=== PATIENT | female | born 1935 | race Caucasian/White ===

== ENCOUNTER → 2016-07-28 | Outpatient (CLI) | payer MEDICARE, BC ==
--- NOTE | 2016-07-28 08:40 | US ---
EXAMINATION TYPE: US kidneys/renal and bladder DATE OF EXAM: 07/28/2016 7:50 AM COMPARISON: ABD limited in PACS 08/09/2012 CLINICAL HISTORY: US. Abnormal renal function EXAM MEASUREMENTS: Right Kidney: 10.4 x 5.0 x 5.1 cm Left Kidney: 11.0 x 4.8 x 4.5 cm ANATOMY: TECHNOLOGIST IMPRESSION: Right Kidney: Cortical thinning, no evidence of hydro Left Kidney: Cortical thinning, no evidence of hydro Bladder: wnl Bilateral Jets seen: No There is no evidence for hydronephrosis at this point in time. No nephrolithiasis is seen. No reyna s are identified. The urinary bladder is anechoic. IMPRESSION: Renal parenchymal thinning otherwise unremarkable study. Normal Values: Renal Length = 9 - 12cm Bladder Wall: < 0.3cm
== END | disposition home or self-care (01) ==
LOC: RADUSWWP 07:35
PROVIDERS: ATTEND Internal Medicine
DX: N28.89 Other specified disorders of kidney and ureter (principal); R94.4 Abnormal results of kidney function studies
CPT/HCPCS: 36415; 76770; 80053; 81003; 84100; 85027

== ENCOUNTER → 2016-07-28 | Outpatient (CLI) | payer MEDICARE, BC ==
[2016-07-28 08:46] LABS: CH 32.5; CHCM 32.5; HCT 41.2 % (34.0-46.0); MCH 31.6 pg (25.0-35.0); MCHC 31.5 g/dL (31.0-37.0); MCV 100.6 fL (80.0-100.0); Macrocytosis Slight; Mean Platelet Volume 7.6; RDW 13.7 % (11.5-15.5); WBC 6.8 k/uL (3.8-10.6)
[2016-07-28 09:03] LABS: ALT 40 U/L (9-52); AST 33 U/L (14-36); Alkaline Phosphatase 66 U/L (38-126); Anion Gap 8 mmol/L; Blood Urea Nitrogen 22 mg/dL (7-17); Calcium 9.6 mg/dL (8.4-10.2); Carbon Dioxide 31 mmol/L (22-30); Chloride 101 mmol/L (98-107); Glucose 93 mg/dL (74-99); Non-African American GFR(MDRD) >60 (>60 ml/min/1.73 sqM); Potassium 4.1 mmol/L (3.5-5.1); Sodium 140 mmol/L (137-145); Total Bilirubin 0.4 mg/dL (0.2-1.3); Total Protein 6.7 g/dL (6.3-8.2)
[2016-07-28 10:04] LABS: Appearance,Urine Clear (Clear); Bilirubin,Urine Negative (Negative); Glucose,Urine (UA) Negative (Negative); Ketones,Urine Negative (Negative); Leukocyte Esterase,Urine Negative (Negative); Nitrite,Urine Negative (Negative); PH, Urine 5.5 (5.0-8.0); Protein,Urine Negative (Negative); Specific Gravity,Urine 1.006 (1.001-1.035); UA Billing (MACRO vs. MICRO) CHEM; Urobilinogen,Urine <2.0 mg/dL (<2.0)
== END | disposition home or self-care (01) ==
LOC: LABWHC1 07:55
PROVIDERS: ATTEND Internal Medicine
DX: R94.4 Abnormal results of kidney function studies (principal)
CPT/HCPCS: 36415; 80053; 81003; 84100; 85027

== ENCOUNTER → 2017-01-29 | Outpatient (CLI) | payer MEDICARE, BC ==
--- NOTE | 2017-02-02 07:15 | MM ---
Reason for exam: screening (asymptomatic). Last mammogram was performed 1 year and 2 months ago. History: Patient is postmenopausal and history of other cancer. Excisional biopsy of the right breast, 2004. Cyst aspiration of the left breast, 1999. Silicone gel implants in both breasts, 1971. Physical Findings: A clinical breast exam by your physician is recommended on an annual basis and results should be correlated with mammographic findings. MG 3D Screen Mammo Imp/Cad Bilateral CC, MLO, and ID view(s) were taken. Prior study comparison: November 19, 2015, bilateral MG 3d screen mammo imp/cad. July 14, 2014, bilateral MG screening mammo w CAD. June 21, 2013, CAD bilateral diagnostic mammogram. June 03, 2012, CAD bilateral diagnostic mammogram. The breast tissue is heterogeneously dense. This may lower the sensitivity of mammography. No significant changes when compared with prior studies. ASSESSMENT: Negative, BI-RAD 1 RECOMMENDATION: Routine screening mammogram of both breasts in 1 year. Manage on a clinical basis with regard to left breast pain. A negative exam should not preclude additional follow up of suspicious palpable abnormalities.
== END | disposition home or self-care (01) ==
LOC: RADMAMWWP 15:38
PROVIDERS: ATTEND Internal Medicine
DX: Z12.31 Encounter for screening mammogram for malignant neoplasm of breast (principal)
CPT/HCPCS: 77063; G0202

== ENCOUNTER 2018-10-02 15:38 | Emergency (ER) | payer MEDICARE, BC ==
--- NOTE | 2018-10-02 16:36 | ED ---
Chest Pain HPI - General Chief Complaint: Chest Pain Stated Complaint: Chest and arm pain Time Seen by Provider: 10/02/18 16:00 Source: patient Mode of arrival: ambulatory Limitations: no limitations - History of Present Illness Initial Comments: Patient is an 83-year-old female presenting for chest pain. The patient states that it started last night around 9 PM while she was sitting at a table. She states that it was a constant sharp sensation and occurred after she had just finished eating. She states that there was some arm pain but denies any radiation down the arm. She states it went away around 2 AM and that the pain was also worse with movement. She did not have any pain this morning and states that it came back this afternoon. She denies any nausea/vomiting/diarrhea and states that there is point tenderness on the left side of her chest. She also states that she lifted a couple heavy bags over her head yesterday before the symptoms started and thinks that it may be secondary to that. She also states that she was seen here within the last few years where they did a stress test and everything was noted to be negative. - Related Data Home Medications Medication Instructions Recorded Confirmed Albuterol Sulfate [Proair Hfa] 1 - 2 puff INHALATION RT-Q6H PRN 06/13/16 10/02/18 Allopurinol [Zyloprim] 150 mg PO DAILY 06/13/16 10/02/18 Budesonide/Formoterol Fumarate 2 puff INHALATION RT-BID 06/13/16 10/02/18 [Symbicort 160-4.5 Mcg Inhaler] Fluticasone Nasal [place] [Flonase 1 spr EA NOSTRIL BID 06/13/16 10/02/18 Nasal [place]] Levothyroxine Sodium [Synthroid] 125 mcg PO DAILY 06/13/16 10/02/18 Montelukast [Singulair] 10 mg PO HS 06/13/16 10/02/18 Omeprazole [PriLOSEC] 20 mg PO AC-BRKFST 06/13/16 10/02/18 Potassium Chloride [Klor-Con 10] 10 meq PO HS 06/13/16 10/02/18 Sotalol [Betapace] 80 mg PO TID 06/13/16 10/02/18 Triamterene-Hctz 37.5-25Mg 1 cap PO DAILY 06/13/16 10/02/18 [Dyazide 37.5-25 Capsule] Vit C/E/Zn/Coppr/Lutein/Zeaxan 1 cap PO BID 06/13/16 10/02/18 [Preservision Areds 2 Softgel] Loratadine [Claritin] 10 mg PO DAILY 10/02/18 10/02/18 Warfarin Sodium [Coumadin] 4 mg PO SUMOTUWETHFR 10/02/18 10/02/18 Warfarin Sodium [Coumadin] 6 mg PO SA 10/02/18 10/02/18 Allergies Allergy/AdvReac Type Severity Reaction Status Date / Time No Known Allergies Allergy Verified 10/02/18 17:17 Review of Systems ROS Statement: Those systems with pertinent positive or pertinent negative responses have been documented in the HPI. Constitutional: Negative for chills, fatigue and fever. HENT: Negative for congestion. Respiratory: Negative for chest tightness, shortness of breath and wheezing. Negative for cough Cardiovascular: Positive for chest pain and negative for palpitations. Gastrointestinal: Negative for abdominal pain. Negative for abdominal distention, diarrhea, nausea and vomiting. Genitourinary: Negative for dysuria. Musculoskeletal: Negative for back pain, neck pain and neck stiffness. Skin: Negative for color change. Neurological: Negative for dizziness, speech difficulty, weakness and light- headedness. Psychiatric/Behavioral: Negative for agitation and confusion. Negative for anxie ty ROS Other: All systems not noted in ROS Statement are negative. EKG Findings - EKG Comments: EKG Findings:: EKG shows sinus bradycardia with a rate of 58 bpm, SC interval 142, QRS 76, QTC 490. There are no significant ST depressions or elevations. Past Medical History Past Medical History: Atrial Fibrillation, Asthma, Chest Pain / Angina, Hearing Disorder / Deafness, Thyroid Disorder Additional Past Medical History / Comment(s): gout History of Any Multi-Drug Resistant Organisms: None Reported Past Surgical History: Adenoidectomy, Appendectomy, Joint Replacement, Tonsillectomy Additional Past Surgical History / Comment(s): bilateral knee and ankle replacement, breast augmentation Past Psychological History: No Psychological Hx Reported Smoking Status: Never smoker Past Alcohol Use History: None Reported Past Drug Use History: None Reported - Past Family History Mother Family Medical History: Cancer, Congestive Heart Failure (CHF) Additional Family Medical History / Comment(s): father cancer General Exam - General Exam Comments Initial Comments: Constitutional: Pt appears well-developed and well-nourished. No distress. Head: Normocephalic and atraumatic. Eyes: EOM are normal. Neck: Normal range of motion. Neck supple. Cardiovascular: Normal rate, regular rhythm, S1 normal, S2 normal and normal heart sounds. Exam reveals no gallop and no friction rub. No murmur heard. Pulmonary/Chest: Effort normal and breath sounds normal. No tachypnea and no bradypnea. No respiratory distress. No wheezes or rales noted. Abdominal: Soft. Bowel sounds are normal. Pt exhibits no shifting dullness, no distension, no pulsatile liver, no fluid wave, no abdominal bruit and no ascites. There is no rigidity, no rebound, no guarding, no tenderness at McBurney's point and negative Richards's sign. There is no tenderness. Musculoskeletal: Normal range of motion. Point tenderness to ribs 7 and 8 on the left side with significant discomfort exhibited when physician pushes on that point Neurological: Pt is alert and oriented to person, place, and time. No cranial nerve deficit. Skin: Skin is warm and dry. No rash noted. Pt is not diaphoretic. No erythema. No pallor. Psychiatric: Pt has a normal mood and affect. Pt behavior is normal. Thought content normal. Limitations: no limitations Course Vital Signs 10/02/18 10/02/18 15:48 20:44 Temperature 97.6 F 98.4 F Pulse Rate 60 84 Respiratory 16 14 Rate Blood Pressure 139/73 144/67 O2 Sat by Pulse 96 97 Oximetry Chest Pain MDM - MDM Initial troponin was not to be negative and EKG had no significant findings. Additionally, chest x-ray was unremarkable and patient's pain is highly thought to be secondary to musculoskeletal strain as there is very focal point tenderness on the left ribs. Extensive discussion was had with the family including the son who is bedside it was mutually agreed that serial troponins would be completed and if negative, she will be discharged and follow up with PCP. This indeed was the case and patient was well-appearing at the time of disposition with no active chest pain and therefore was determined that the patient could be discharged and follow-up as indicated. Disposition Clinical Impression: Chest pain Disposition: HOME SELF-CARE Condition: Good Instructions (If sedation given, give patient instructions): Chest Pain (ED) Is patient prescribed a controlled substance at d/c from ED?: No Referrals: Olegario Lemon MD [Primary Care Provider] - 1-2 days Lissy Mendoza MD [STAFF PHYSICIAN] - 1-2 days Time of Disposition: 20:09
[2018-10-02 16:45] LABS: Basophils % (A) 0 %; Eosinophils # (A) 0.3 k/uL (0-0.7); Eosinophils % (A) 3 %; HCT 41.9 % (34.0-46.0); HGB 13.5 gm/dL (11.4-16.0); Lymphocytes # (A) 2.8 k/uL (1.0-4.8); Lymphocytes % (A) 29 %; MCH 30.4 pg (25.0-35.0); MCHC 32.1 g/dL (31.0-37.0); MCV 94.6 fL (80.0-100.0); Mean Platelet Volume 7.2; Monocytes # (A) 0.5 k/uL (0-1.0); Monocytes % (A) 5 %; Neutrophils # (A) 5.6 k/uL (1.3-7.7); Neutrophils % (A) 59 %; Platelet Count 249 k/uL (150-450); RBC 4.43 m/uL (3.80-5.40); RDW 13.6 % (11.5-15.5); WBC 9.4 k/uL (3.8-10.6)
[2018-10-02 16:49] LABS: Calcium 9.8 mg/dL (8.4-10.2); Magnesium 1.8 mg/dL (1.6-2.3); Potassium 3.8 mmol/L (3.5-5.1); Total Bilirubin 0.4 mg/dL (0.2-1.3)
[2018-10-02 16:57] LABS: INR 2.2 (<1.2); Partial Thromboplastin Time 30.4 sec (22.0-30.0); Prothrombin Time 21.6 sec (9.0-12.0)
--- NOTE | 2018-10-02 17:05 | XR ---
EXAMINATION TYPE: XR chest 2V DATE OF EXAM: 10/02/2018 COMPARISON: 02/01/2018 HISTORY: Chest pain TECHNIQUE: Frontal and lateral views of the chest are obtained. FINDINGS: There is no heart failure nor confluent pneumonic infiltrate. There is slight coarsening o f interstitial markings. Heart size is normal. There are chest leads. There is calcified breast impla nts. IMPRESSION: Mild pulmonary fibrosis. No active cardiopulmonary disease. No change.
[2018-10-02 20:46] VITALS: BP 144/67; PULSE 84; RESP 14; TEMP 98.4
== END 2018-10-02 20:48 | disposition home or self-care (01) ==
LOC: EC 15:38
DX: E07.9 Disorder of thyroid, unspecified (principal); M79.603 Pain in arm, unspecified; J45.909 Unspecified asthma, uncomplicated; I48.91 Unspecified atrial fibrillation; Z79.01 Long term (current) use of anticoagulants; Z79.51 Long term (current) use of inhaled steroids; Z79.890 Hormone replacement therapy; Z79.899 Other long term (current) drug therapy; Z96.653 Presence of artificial knee joint, bilateral; Z96.661 Presence of right artificial ankle joint; Z96.662 Presence of left artificial ankle joint
CPT/HCPCS: 36415; 71046; 80053; 83735; 83880; 84484; 85025; 85610; 85730; 93005; 99285

== ENCOUNTER → 2018-10-27 | Outpatient (CLI) | payer MEDICARE, BC ==
--- NOTE | 2018-10-29 10:03 | MM ---
Reason for exam: screening (asymptomatic). Last mammogram was performed 1 year and 9 months ago. History: Patient is postmenopausal and history of other cancer. Excisional biopsy of the right breast, 2004. Cyst aspiration of the left breast, 1999. Silicone gel implants in both breasts, 1971. Physical Findings: A clinical breast exam by your physician is recommended on an annual basis and results should be correlated with mammographic findings. MG 3D Screen Mammo Imp/Cad Bilateral CC, MLO, and ID view(s) were taken. Prior study comparison: January 29, 2017, bilateral MG 3d screen mammo imp/cad. November 19, 2015, bilateral MG 3d screen mammo imp/cad. The breast tissue is heterogeneously dense. This may lower the sensitivity of mammography. Finding: There are typically benign stable, fine, vascular calcifications in both breasts. Bilateral breast prothesis. No significant changes in finding since January 29, 2017 and November 19, 2015. ASSESSMENT: Benign, BI-RAD 2 RECOMMENDATION: Routine screening mammogram of both breasts in 1 year.
== END | disposition home or self-care (01) ==
LOC: RADMAMWWP 10:50
PROVIDERS: ATTEND Internal Medicine
DX: Z12.31 Encounter for screening mammogram for malignant neoplasm of breast (principal); Z98.82 Breast implant status
CPT/HCPCS: 77063; 77067

== ENCOUNTER → 2018-10-28 | Outpatient (CLI) | payer MEDICARE, BC ==
--- NOTE | 2018-10-29 09:25 | CT ---
EXAMINATION TYPE: CT abdomen pelvis w con DATE OF EXAM: 10/28/2018 COMPARISON: None HISTORY: Hx diverticulitis CT DLP: 562.40 mGycm Automated exposure control for dose reduction was used. CONTRAST: CT scan of the abdomen pelvis is performed with IV Contrast, patient injected with 80 mL of Isovue 30 0. FINDINGS- LUNG BASES-there is interlobular septal interstitial lung disease. Calcified breast implants noted.. LIVER/GB-there is a 2.3 cm low-density lesion within the caudate lobe of the liver measuring 14 Houns field units compatible with a cyst. No obvious gallstones.. PANCREAS- No gross abnormality is seen. SPLEEN- No gross abnormality is seen. ADRENALS- No gross abnormality is seen. KIDNEYS/BLADDER- no hydronephrosis. Hypodensities within the kidneys are too small. BOWEL-bowel gas pattern nonspecific. There is diverticulosis mild induration of fat is seen at the [place] of the sigmoid and mild diverticulitis. LYMPH NODES- No greater than 1cm abdominal or pelvic lymph nodes areappreciated. OSSEOUS STRUCTURES-hypertrophic and degenerative changes, arthropathy of the hips. OTHER- aorta of n ormal caliber with atherosclerotic changes. 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 IMPRESSION- 1. Diverticulosis of the sigmoid colon with findings suggestive of very mild diverticulitis. 2. Simple hepatic cyst.
== END ==
LOC: RADCTMAIN 15:22
PROVIDERS: ATTEND Student in an Organized Health Care Education/Training Program
DX: K57.30 Diverticulosis of large intestine without perforation or abscess without bleeding (principal); K76.89 Other specified diseases of liver
CPT/HCPCS: 82565; 84520; 74177; 36415; Q9967

== ENCOUNTER 2019-01-28 19:57 | Emergency (ER) | payer MEDICARE, BC ==
[2019-01-28 20:54] VITALS: RESP 18
[2019-01-28] MEDS ORDERED: DIPH,PERTUS(ACELL)TETVAC-LF 0.5 ML VIAL IM ONE (21:43)
[2019-01-28] MEDS ORDERED: LIDOCAINE 1% INJ 10MG/ML (20 ML MDV) SQ STA (22:27)
--- NOTE | 2019-01-28 23:06 | ED ---
General Adult HPI - General Chief complaint: Wound/Laceration Stated complaint: Ankle Lac Time Seen by Provider: 01/28/19 20:55 Source: patient, RN notes reviewed, old records reviewed Mode of arrival: wheelchair Limitations: no limitations - History of Present Illness Initial comments: 84-year-old female patient presents to ED after mechanical fall. Patient reports that she was walking, her left ankle was tripped on a exposed piece of metal. Patient reports that she fell, onto her knees. Patient's chief complaint is a skin tear to her left ankle. Patient also has a minor abrasion to her right elbow. Patient denies any trauma to head or neck. Patient denies any other injury sustained. Systemic: Pt denies fatigue, fever/chills, rash. Pt denies weakness, night sweats, weight loss. Neuro: Pt denies headache, visual disturbances, syncope or pre-syncope. HEENT: Pt denies ocular discharge or irritation, otalgia, rhinorrhea, phar yngitis or notable lymphadenopathy. Cardiopulmonary: Pt denies chest pain, SOB, heart palpitations, dyspnea on exertion. Abdominal/GI: Pt denies abdominal pain, n/v/d. : Pt denies dysuria, burning w/ urination, frequency/urgency. Denies new onset urinary or bowel incontinence. MSK: Pt denies myalgia, loss of strength or function in extremities. Neuro: Pt denies new onset weakness, paresthesias. - Related Data Home Medications Medication Instructions Recorded Confirmed Albuterol Sulfate [Proair Hfa] 1 - 2 puff INHALATION RT-Q6H PRN 06/13/16 10/02/18 Allopurinol [Zyloprim] 150 mg PO DAILY 06/13/16 10/02/18 Budesonide/Formoterol Fumarate 2 puff INHALATION RT-BID 06/13/16 10/02/18 [Symbicort 160-4.5 Mcg Inhaler] Fluticasone Nasal [place] [Flonase 1 spr EA NOSTRIL BID 06/13/16 10/02/18 Nasal [place]] Levothyroxine Sodium [Synthroid] 125 mcg PO DAILY 06/13/16 10/02/18 Montelukast [Singulair] 10 mg PO HS 06/13/16 10/02/18 Omeprazole [PriLOSEC] 20 mg PO AC-BRKFST 06/13/16 10/02/18 Potassium Chloride [Klor-Con 10] 10 meq PO HS 06/13/16 10/02/18 Sotalol [Betapace] 80 mg PO TID 06/13/16 10/02/18 Triamterene-Hctz 37.5-25Mg 1 cap PO DAILY 06/13/16 10/02/18 [Dyazide 37.5-25 Capsule] Vit C/E/Zn/Coppr/Lutein/Zeaxan 1 cap PO BID 06/13/16 10/02/18 [Preservision Areds 2 Softgel] Loratadine [Claritin] 10 mg PO DAILY 10/02/18 10/02/18 Warfarin Sodium [Coumadin] 4 mg PO SUMOTUWETHFR 10/02/18 10/02/18 Warfarin Sodium [Coumadin] 6 mg PO SA 10/02/18 10/02/18 Allergies Allergy/AdvReac Type Severity Reaction Status Date / Time No Known Allergies Allergy Verified 01/28/19 20:54 Review of Systems ROS Statement: Those systems with pertinent positive or pertinent negative responses have been documented in the HPI. ROS Other: All systems not noted in ROS Statement are negative. Past Medical History Past Medical History: Atrial Fibrillation, Asthma, Chest Pain / Angina, Hearing Disorder / Deafness, Thyroid Disorder Additional Past Medical History / Comment(s): gout, History of Any Multi-Drug Resistant Organisms: None Reported Past Surgical History: Adenoidectomy, Appendectomy, Joint Replacement, Tonsillectomy Additional Past Surgical History / Comment(s): bilateral knee and ankle replacement, breast augmentation, Past Psychological History: No Psychological Hx Reported Smoking Status: Never smoker Past Alcohol Use History: None Reported Past Drug Use History: None Reported - Past Family History Mother Family Medical History: Cancer, Congestive Heart Failure (CHF) Additional Family Medical History / Comment(s): father cancer General Exam - General Exam Comments Initial Comments: Constitutional: NAD, AOX3, Pt has pleasant affect. HEENT: NC/AT, trachea midline, neck supple, no lymphadenopathy. Posterior pharynx non erythematous, without exudates. External ears appear normal, without discharge. Mucous membranes moist. Eyes PERRLA, EOM intact. There is no scleral icterus. No pallor noted. Cardiopulmonary: RRR, no murmurs, rubs or gallops, no JVD noted. Lungs CTAB in anterior and posterior cr. No peripheral edema. Abdominal exam: Abdomen soft and non-distended. Abdomen non-tender to palpation in all 4 quadrants. Bowel sounds active in LLQ. No hepatosplenomegaly. No ecchymosis Neuro: CN II-XII intact. No nuchal rigidity. No raccon eyes, no arechiga sign, no hemotympanum. No cervical spinal tenderness. MSK: 4cm skin tear on left anterior ankle. Wound irrigated with 500 mL normal saline. Mild abrasion noted to right elbow, does not require closure, cleaned and bandaged. Approximated with 9 simple interrupted sutures. No posterior calf tenderness bilaterally, homans sign negative bilaterally. Posterior tibialis and radial pulse +2 bilaterally. Sensation intact in upper and lower extremities. Full active ROM in upper and lower extremities, 5/5 stregnth. Limitations: no limitations Course Vital Signs 01/28/19 01/28/19 20:49 23:26 Temperature 97.9 F 98.0 F Pulse Rate 61 66 Respiratory 18 18 Rate Blood Pressure 120/73 128/77 O2 Sat by Pulse 95 98 Oximetry Procedures - Laceration Laceration #1 Consent Obtained: verbal consent Indication: laceration Site: lower extremity Size (cm): 4 Description: linear Depth: simple, single layer Anesthesia Technique: local infiltration Amount (mls): 8 Pre-repair: wound explored, irrigated extensively (500mL NS ), deep structures intact Type of Sutures: nylon Size of Sutures: 5-0 Number of Sutures: 9 Technique: simple, interrupted Patient Tolerated Procedure: well, no complications Medical Decision Making - Medical Decision Making 84-year-old female patient since ED with chief complaint of fall. Patient was in stable, afebrile. Physical exam displayed 4cm skin tear on left anterior ankle. Wound irrigated with 500 mL normal saline. Approximated with 9 simple interrupted sutures. Patient tetanus updated. Patient discharged, will return to ED if condition worsens in anyway. Case discussed with Dr. Farmer. Disposition Clinical Impression: Laceration, Fall Disposition: HOME SELF-CARE Condition: Stable Instructions (If sedation given, give patient instructions): Care For Your Stitches (ED), Laceration (ED) Additional Instructions: Patient to adhere to previously discussed treatment plan and will take medication(s) as directed. Patient to follow up with PCP in 1-2 days. Patient to return to ED if symptoms do not improve. Please return for suture removal: Hand: 7-10 days Face: 5 days Chest/abdomen: 12-14 days Extremities: 7-10 days Scalp: 7 days Eyebrow: 5-7 days Foot/sole: 12-14 days Please monitor for signs and symptoms of infection including: redness, warmth, drainage, discharge. Please return to ED if these signs or symptoms occur, new signs or symptoms develop or if condition worsens in anyway. Is patient prescribed a controlled substance at d/c from ED?: No Referrals: Olegario Lemon MD [Primary Care Provider] - 1-2 days
[2019-01-28 23:26] VITALS: BP 128/77; PULSE 66; TEMP 98
== END 2019-01-28 23:26 | disposition home or self-care (01) ==
LOC: EC 19:57
DX: S91.012A Laceration without foreign body, left ankle, initial encounter (principal); S50.311A Abrasion of right elbow, initial encounter; I48.91 Unspecified atrial fibrillation; J45.909 Unspecified asthma, uncomplicated; E07.9 Disorder of thyroid, unspecified; M10.9 Gout, unspecified; Z23 Encounter for immunization; Z96.653 Presence of artificial knee joint, bilateral; Z96.661 Presence of right artificial ankle joint; Z96.662 Presence of left artificial ankle joint; Z79.51 Long term (current) use of inhaled steroids; Z79.890 Hormone replacement therapy; Z79.01 Long term (current) use of anticoagulants; Z79.899 Other long term (current) drug therapy; W01.198A Fall on same level from slipping, tripping and stumbling with subsequent striking against other object, initial encounter; Y93.01 Activity, walking, marching and hiking
CPT/HCPCS: 90715; 99283; 12002; 90471; J2001

== ENCOUNTER 2019-02-27 14:29 | Emergency (ER) | payer MEDICARE, BC ==
[2019-02-27 14:33] VITALS: RESP 18
[2019-02-27] MEDS ORDERED: ONDANSETRON 4 MG/2 ML VIAL IVP STA (15:01)
[2019-02-27] MEDS ORDERED: FAMOTIDINE 20 MG/2 ML VIAL IV STA (15:01)
[2019-02-27] MEDS ORDERED: methylPREDNISolone SOD SUCCI 125 MG/2 ML VIAL IV STA (15:01)
[2019-02-27] MEDS ORDERED: diphenhydrAMINE 50 MG CAP PO STA (15:02)
[2019-02-27] MEDS ORDERED: diphenhydrAMINE 50 MG/ML 1 ML VIAL IVP STA (15:13)
--- NOTE | 2019-02-27 16:08 | ED ---
Allergic Reaction HPI - General Chief complaint: Allergic Reaction Stated complaint: Bee sting Time Seen by Provider: 02/27/19 14:57 Source: patient Mode of arrival: wheelchair Limitations: no limitations - History of Present Illness Initial Comments: 84-year-old female presented for chief complaint of ALLERGIC reaction to bee sting. Patient states she was stung just prior to arrival by a bee on her left thenar eminence. Patient states that she began been having episodes of vomiting like she cannot breathe. Patient states she was her rescue inhaler and then was given Benadryl. She states the symptoms then subsided. Patient states there is some redness to the area of the bee sting. Patient upon arrival to [facility] department denies any difficulty breathing denies abdominal pain she states she has not had additional episodes of emesis. Patient states she is feeling almost back to normal. Patient states she does have pain at the site of the bee sting itself. Remaining review of system negative. Patient does not have a home EpiPen. Patient's vital signs within normal limits patient has no signs of respiratory distress. Appears well - Related Data Home Medications Medication Instructions Recorded Confirmed Albuterol Sulfate [Proair Hfa] 1 - 2 puff INHALATION RT-Q6H PRN 06/13/16 02/27/19 Allopurinol [Zyloprim] 150 mg PO DAILY 06/13/16 02/27/19 Budesonide/Formoterol Fumarate 2 puff INHALATION RT-BID 06/13/16 02/27/19 [Symbicort 160-4.5 Mcg Inhaler] Fluticasone Nasal [place] [Flonase 1 spr EA NOSTRIL BID 06/13/16 02/27/19 Nasal [place]] Levothyroxine Sodium [Synthroid] 125 mcg PO DAILY 06/13/16 02/27/19 Montelukast [Singulair] 10 mg PO HS 06/13/16 02/27/19 Omeprazole [PriLOSEC] 20 mg PO AC-BRKFST 06/13/16 02/27/19 Potassium Chloride [Klor-Con 10] 10 meq PO HS 06/13/16 02/27/19 Sotalol [Betapace] 80 mg PO TID 06/13/16 02/27/19 Triamterene-Hctz 37.5-25Mg 1 cap PO DAILY 06/13/16 02/27/19 [Dyazide 37.5-25 Capsule] Vit C/E/Zn/Coppr/Lutein/Zeaxan 1 cap PO BID 06/13/16 02/27/19 [Preservision Areds 2 Softgel] Loratadine [Claritin] 10 mg PO DAILY 10/02/18 02/27/19 Warfarin Sodium [Coumadin] 4 mg PO SUMOTUWETHFR 10/02/18 02/27/19 Warfarin Sodium [Coumadin] 6 mg PO SA 10/02/18 02/27/19 Previous Rx's Medication Instructions Recorded EPINEPHrine [Epipen 2-Loyd] 0.3 mg IM ONCE PRN 30 Days #1 pack 02/27/19 diphenhydrAMINE ELIXIR [Benadryl 25 mg PO BID 3 Days #1 bottle 02/27/19 Elixir] Allergies Allergy/AdvReac Type Severity Reaction Status Date / Time bee venom protein (honey bee) Allergy Anaphylaxis Verified 02/27/19 14:57 Review of Systems ROS Statement: Those systems with pertinent positive or pertinent negative responses have been documented in the HPI. ROS Other: All systems not noted in ROS Statement are negative. Past Medical History Past Medical History: Atrial Fibrillation, Asthma, Chest Pain / Angina, Hearing Disorder / Deafness, Thyroid Disorder Additional Past Medical History / Comment(s): gout, History of Any Multi-Drug Resistant Organisms: None Reported Past Surgical History: Adenoidectomy, Appendectomy, Joint Replacement, Tonsillectomy Additional Past Surgical History / Comment(s): bilateral knee and ankle replacement, breast augmentation, Past Psychological History: No Psychological Hx Reported Smoking Status: Never smoker Past Alcohol Use History: None Reported Past Drug Use History: None Reported - Past Family History Mother Family Medical History: Cancer, Congestive Heart Failure (CHF) Additional Family Medical History / Comment(s): father cancer General Exam - General Exam Comments Initial Comments: General: The patient is awake and alert, in no distress, and does not appear acutely ill. Eye: +3 mm pupils are equal, round and reactive to light, extra-ocular movements are intact. No nystagmus. There is normal conjunctiva bilaterally. No signs of icterus. Ears, nose, mouth and throat: There are moist mucous membranes and no oral lesions. No swelling of the lips or tongue. Neck: The neck is supple, there is no tenderness or JVD. Cardiovascular: There is a regular rate and rhythm. No murmur, rub or gallop is appreciated. Respiratory: Lungs are clear to auscultation, respirations are non-labored, breath sounds are equal. No wheezes, stridor, rales, or rhonchi. Gastrointestinal: Soft, non-distended, non-tender abdomen without masses or organomegaly noted. There is no rebound or guarding present. Musculoskeletal: Normal ROM, no tenderness. Strength 5/5. Sensation intact. Pulses equal bilaterally 2+. Neurological: A&O x 3. CN II-XII intact, There are no obvious motor or sensory deficits. Coordination appears grossly intact. Speech is normal. Skin: Skin is warm and dry and no rashes or lesions are noted. Redness to the right thenar eminence of the left hand, no stinger, or abrasion/opening of skin noted. Psychiatric: Cooperative, appropriate mood & affect, normal judgment. Limitations: no limitations Course Vital Signs 02/27/19 02/27/19 14:31 16:32 Temperature 97.9 F 98.0 F Pulse Rate 66 62 Respiratory 18 18 Rate Blood Pressure 123/73 118/70 O2 Sat by Pulse 95 98 Oximetry Medical Decision Making - Medical Decision Making 10-year-old female presented for chief complaint of bee sting with reaction. Patient was given a small amount of Benadryl prior to arrival. Patient didn't have episode of vomiting as well as difficult to breathing. Patient states she has no current symptoms. Patient has no abdominal pain on examination. No emesis the first part patient was given sign Medrol Pepcid. Patient was monitored emergency department for 90 minutes. She was requesting discharge. Continues to be asymptomatic. I discussed the case with him provider Dr. Taylor with this time feel patient stated for discharge and is agreeable with a prescription for Benadryl for the next 2 days taking prescription twice daily as well as a prescription for 2 pack of EpiPen. I recommend outpatient primary care follow-up. Patient was discharged appearing well Disposition Clinical Impression: Bee sting Disposition: HOME SELF-CARE Condition: Good Instructions (If sedation given, give patient instructions): Anaphylaxis (ED) Additional Instructions: Please use medication as discussed. Please follow-up with family doctor in the next 2 days. Please return to emergency room if the symptoms increase or worsen or for any other concerns. Prescriptions: diphenhydrAMINE ELIXIR [Benadryl Elixir] 25 mg PO BID 3 Days #1 bottle EPINEPHrine [Epipen 2-Loyd] 0.3 mg IM ONCE PRN 30 Days #1 pack PRN Reason: Anaphylaxis Is patient prescribed a controlled substance at d/c from ED?: No Referrals: Olegario Lemon MD [Primary Care Provider] - 1-2 days Time of Disposition: 16:07
[2019-02-27 16:33] VITALS: BP 118/70; PULSE 62; TEMP 98
== END 2019-02-27 16:58 | disposition home or self-care (01) ==
LOC: EC 14:29
DX: T63.441A Toxic effect of venom of bees, accidental (unintentional), initial encounter (principal); I48.91 Unspecified atrial fibrillation; J45.909 Unspecified asthma, uncomplicated; H91.90 Unspecified hearing loss, unspecified ear; E07.9 Disorder of thyroid, unspecified; M10.9 Gout, unspecified; Z79.01 Long term (current) use of anticoagulants; Z79.51 Long term (current) use of inhaled steroids; Z79.890 Hormone replacement therapy; Z79.899 Other long term (current) drug therapy; Z96.653 Presence of artificial knee joint, bilateral; Z96.661 Presence of right artificial ankle joint; Z96.662 Presence of left artificial ankle joint
CPT/HCPCS: 99283; 96374; 96375 ×3; J1200; J2930; J2405

== ENCOUNTER → 2020-01-20 | Outpatient (CLI) | payer MEDICARE, BC | END | disposition home or self-care (01) | LOC: LABWHC1 13:03 | PROVIDERS: ATTEND Internal Medicine | DX: Z20.828 Contact with and (suspected) exposure to other viral communicable diseases (principal) ==

== ENCOUNTER 2021-03-01 11:25 | Inpatient (IN) | payer MEDICARE, BC ==
[2021-03-01] MEDS ORDERED: SODIUM CHLORIDE 0.9% 1,000 ML IV ONE ×2 (11:48→18:55)
[2021-03-01] MEDS ORDERED: SODIUM CHLORIDE 0.9% 500 ML 500 ML IV ONE ×2 (11:48→21:50)
[2021-03-01] MEDS ORDERED: SUCCINYLCHOLINE CHLORIDE VIAL 200 MG/10 ML VIAL IV STA (11:49)
[2021-03-01] MEDS ORDERED: DOPamine DRIP 800 MG in DEXTROSE/WATER 1 250ML.BAG IV ONE (11:50)
[2021-03-01] MEDS ORDERED: LORazepam 2 MG/ML INJ IV PRN ×2 (11:51)
--- NOTE | 2021-03-01 11:57 | ED ---
General Adult HPI - General Chief complaint: Shortness of Breath Stated complaint: unresponsive Time Seen by Provider: 03/01/21 11:25 Source: EMS, RN notes reviewed Mode of arrival: EMS Limitations: altered mental status, physical limitation - History of Present Illness Initial comments: Patient is unresponsive 86-year-old female presenting to the emergency department for unresponsiveness. Patient was seen in our prior to being found unresponsive. Patient was reportedly lying down with difficulty in breathing. Patient also had concern for emesis. Patient did have surgery on her left arm yesterday and had been vomiting. Patient is unresponsive at this time and provides no significant history. - Related Data Home Medications Medication Instructions Recorded Confirmed Albuterol Sulfate [Proair Hfa] 1 - 2 puff INHALATION RT-Q6H PRN 06/13/16 03/01/21 Budesonide/Formoterol Fumarate 2 puff INHALATION RT-BID 06/13/16 03/01/21 [Symbicort 160-4.5 Mcg Inhaler] Levothyroxine Sodium [Synthroid] 125 mcg PO DAILY 06/13/16 03/01/21 Montelukast [Singulair] 10 mg PO HS 06/13/16 03/01/21 Omeprazole [PriLOSEC] 20 mg PO BID 06/13/16 03/01/21 Potassium Chloride [Klor-Con 10] 10 meq PO DAILY 06/13/16 03/01/21 Sotalol [Betapace] 80 mg PO BID 06/13/16 03/01/21 Triamterene-Hctz 37.5-25Mg 1 cap PO DAILY 06/13/16 03/01/21 [Dyazide 37.5-25 Capsule] Warfarin Sodium [Coumadin] 2 mg PO DIRECTED 10/02/18 03/01/21 Warfarin Sodium [Coumadin] 4 mg PO DIRECTED 10/02/18 03/01/21 Brimonidine Tartrate [Alphagan P 1 drops RIGHT EYE BID 03/01/21 03/01/21 0.2% Ophth Soln] Celecoxib [CeleBREX] 200 mg PO DAILY 03/01/21 03/01/21 Gabapentin [Neurontin] 300 mg PO DAILY 03/01/21 03/01/21 HYDROcodone/APAP 7.5-325MG [Lyons 1 tab PO Q6H PRN 03/01/21 03/01/21 7.5-325] Latanoprost/Pf [Latanoprost 0.005% 1 drop RIGHT EYE HS 03/01/21 03/01/21 Eye Drop] Triamcinolone 0.1% Cream [Kenalog 1 applicatio TOPICAL BID 03/01/21 03/01/21 0.1% Cream] ondansetron HCL [Zofran] 8 mg PO Q8HR PRN 03/01/21 03/01/21 Allergies Allergy/AdvReac Type Severity Reaction Status Date / Time bee venom protein (honey bee) Allergy Anaphylaxis Verified 03/01/21 12:44 Review of Systems ROS Statement: Those systems with pertinent positive or pertinent negative responses have been documented in the HPI. ROS Other: All systems not noted in ROS Statement are negative. Limitations: ROS unobtainable due to patients medical condition Gastrointestinal: Reports: vomiting Past Medical History Past Medical History: Atrial Fibrillation, Asthma, Chest Pain / Angina, Hearing Disorder / Deafness, Thyroid Disorder Additional Past Medical History / Comment(s): gout, History of Any Multi-Drug Resistant Organisms: None Reported Past Surgical History: Adenoidectomy, Appendectomy, Joint Replacement, Tonsillectomy Additional Past Surgical History / Comment(s): bilateral knee and ankle replacement, breast augmentation, Past Psychological History: No Psychological Hx Reported Smoking Status: Unknown if ever smoked Past Alcohol Use History: None Reported Past Drug Use History: None Reported - Past Family History Mother Family Medical History: Cancer, Congestive Heart Failure (CHF) Additional Family Medical History / Comment(s): father cancer General Exam Limitations: altered mental status, physical limitation General appearance: obtunded Head exam: Present: atraumatic Eye exam: Present: normal appearance, PERRL ENT exam: Present: normal oropharynx Neck exam: Present: normal inspection Respiratory exam: Present: respiratory distress, other (Poor respiratory effort) Cardiovascular Exam: Present: bradycardia GI/Abdominal exam: Present: soft. Absent: tenderness Extremities exam: Present: normal inspection Neurological exam: Present: altered, other (Nonverbal. Does not follow commands) Expanded Eye Response: (1) no response Motor Response: (1) no motor response Verbal Response: (1) no verbal response Psychiatric exam: Present: other (Nonverbal) Skin exam: Present: normal color Course Vital Signs 03/01/21 03/01/21 03/01/21 11:26 12:05 12:21 Pulse Rate 45 L 74 70 Respiratory 16 14 14 Rate Blood Pressure 69/46 89/45 78/44 O2 Sat by Pulse 88 L 98 98 Oximetry 03/01/21 03/01/21 03/01/21 12:25 12:40 13:05 Pulse Rate 70 72 81 Respiratory 14 14 20 Rate Blood Pressure 78/40 87/36 119/62 O2 Sat by Pulse 97 98 100 Oximetry 03/01/21 03/01/21 03/01/21 13:15 13:30 14:00 Pulse Rate 72 70 70 Respiratory 20 20 20 Rate Blood Pressure 118/51 108/44 110/37 O2 Sat by Pulse 100 99 99 Oximetry - Reevaluation(s) Reevaluation #1: 03/01/21 11:55 EKG #2 shows junctional rhythm with rate of 56. QRS 74. QT 476. QTc 459. Normal axis. Normal QRS. No acute ST change. Heart rate improved to 65 with atropine and dopamine however patient remains hypotensive with blood pressure in the 60s. Central line and started. Levophed also ordered. 03/01/21 14:17 Patient reevaluated twice. Family updated twice. Case was discussed with Dr. Carranza, who will consult for critical care. He is familiar with this patient. Case also discussed with Dr. Martínez consult for cardiology. Dr. Ruiz has been paged for admission covering Dr. Menezes 03/01/21 14:19 There is question of aspiration. Patient was started on antibiotics. IV fluid bolus is not fully given secondary to concern with patient's main dysfunction related to congestive heart failure and this is thought to potentially worsen the patient's symptoms and L compared EKG Findings - EKG Comments: EKG Findings:: EKG shows junctional rhythm with rate of 45. QRS 78. QT 526. QTc 454. Normal axis. Normal QRS. No acute ST change. Procedures - Central Line Placement Right Femoral Consent Obtained: emergent situation Patient Placed on Monitor/Pulse Ox: Yes MD Prep: mask, gown, gloves Central Line Prep: Chlorhexidine scrub Ultrasound Used for Placement: No Central Line Lumen Inserted: triple Central Line Position: good blood return, all ports aspirated, flushed, capped, sutured in place with 3-0 nylon Dressing Applied: Tegaderm Patient Tolerated Procedure: well, no complications Complications: none - Intubation Paralytic: Succinylcholine Mg Given: 100 Laryngoscope: Mena Size: 3 ET Tube Size: 8 Tube Placement Confirmation: visualized tube passing through cords, equal breath sounds bilaterally, no breath sounds over epigastrium, confirmation by capnometry Patient Tolerated Procedure: well, no complications - Sepsis Sepsis Focused Exam #1 Time Sepsis Criteria Met: 13:30 Sepsis Focused Exam Date: 03/01/21 Sepsis Focused Exam Time: 14:18 Sepsis Focused Exam Complete: Yes Vital Signs & RN Notes Reviewed: Yes Capillary Refill: < 2 Seconds: Fingers, Toes Peripheral Pulses: Normal: Dorsalis Pedis (R), Dorsalis Pedis (L) Skin Color: Normal for Patient Respiratory Exam: normal lung sounds Cardiovascular Exam: regular rate Medical Decision Making - Lab Data Result diagrams: 03/01/21 12:05 03/01/21 12:05 Lab Results 03/01/21 03/01/21 03/01/21 Range/Units 12:05 12:05 12:05 WBC 15.9 H (3.8-10.6) k/uL RBC 4.24 (3.80-5.40) m/uL Hgb 13.8 (11.4-16.0) gm/dL Hct 43.0 (34.0-46.0) % MCV 101.5 H (80.0-100.0) fL MCH 32.5 (25.0-35.0) pg MCHC 32.0 (31.0-37.0) g/dL RDW 13.4 (11.5-15.5) % Plt Count 284 (150-450) k/uL MPV 7.4 Neutrophils % 75 % Lymphocytes % 17 % Monocytes % 6 % Eosinophils % 0 % Basophils % 0 % Neutrophils # 11.9 H (1.3-7.7) k/uL Lymphocytes # 2.8 (1.0-4.8) k/uL Monocytes # 1.0 (0-1.0) k/uL Eosinophils # 0.0 (0-0.7) k/uL Basophils # 0.0 (0-0.2) k/uL Macrocytosis Slight PT 17.1 H (9.0-12.0) sec INR 1.7 H (<1.2) APTT 27.3 (22.0-30.0) sec Sample Site ABG pH (7.35-7.45) ABG pCO2 (35-45) mmHg ABG pO2 (83-108) mmHg ABG HCO3 (21-25) mmol/L ABG Total CO2 (19-24) mmol/L ABG O2 Saturation (94-97) % ABG Base Excess mmol/L Terrance Test FiO2 % Sodium (137-145) mmol/L Potassium (3.5-5.1) mmol/L Chloride (98-107) mmol/L Carbon Dioxide (22-30) mmol/L Anion Gap mmol/L BUN (7-17) mg/dL Creatinine (0.52-1.04) mg/dL Est GFR (CKD-EPI)AfAm (>60 ml/min/1.73 sqM) Est GFR (CKD-EPI)NonAf (>60 ml/min/1.73 sqM) Glucose (74-99) mg/dL Plasma Lactic Acid Duran (0.7-2.0) mmol/L Calcium (8.4-10.2) mg/dL Total Bilirubin (0.2-1.3) mg/dL AST (14-36) U/L ALT (4-34) U/L Alkaline Phosphatase (38-126) U/L Troponin I (0.000-0.034) ng/mL NT-Pro-B Natriuret Pep pg/mL Total Protein (6.3-8.2) g/dL Albumin (3.5-5.0) g/dL Urine Color Yellow Urine Appearance Cloudy H (Clear) Urine pH 5.5 (5.0-8.0) Ur Specific [place] 1.023 (1.001-1.035) Urine Protein 1+ H (Negative) Urine Glucose (UA) Negative (Negative) Urine Ketones 1+ H (Negative) Urine Blood Negative (Negative) Urine Nitrite Negative (Negative) Urine Bilirubin Negative (Negative) Urine Urobilinogen <2.0 (<2.0) mg/dL Ur Leukocyte Esterase Negative (Negative) Urine RBC 3 (0-5) /hpf Urine WBC 3 (0-5) /hpf Urine Bacteria Rare H (None) /hpf Hyaline Casts 19 H (0-2) /lpf Urine Mucus Rare H (None) /hpf Urine Opiates Screen Detected H (NotDetected) Ur Oxycodone Screen Not Detected (NotDetected) Urine Methadone Screen Not Detected (NotDetected) Ur Propoxyphene Screen Not Detected (NotDetected) Ur Barbiturates Screen Not Detected (NotDetected) U Tricyclic Antidepress Not Detected (NotDetected) Ur Phencyclidine Scrn Not Detected (NotDetected) Ur Amphetamines Screen Not Detected (NotDetected) U Methamphetamines Scrn Not Detected (NotDetected) U Benzodiazepines Scrn Not Detected (NotDetected) Urine Cocaine Screen Not Detected (NotDetected) U Marijuana (THC) Screen Not Detected (NotDetected) Coronavirus (PCR) (Not Detectd) 03/01/21 03/01/21 03/01/21 Range/Units 12:05 12:05 12:05 WBC (3.8-10.6) k/uL RBC (3.80-5.40) m/uL Hgb (11.4-16.0) gm/dL Hct (34.0-46.0) % MCV (80.0-100.0) fL MCH (25.0-35.0) pg MCHC (31.0-37.0) g/dL RDW (11.5-15.5) % Plt Count (150-450) k/uL MPV Neutrophils % % Lymphocytes % % Monocytes % % Eosinophils % % Basophils % % Neutrophils # (1.3-7.7) k/uL Lymphocytes # (1.0-4.8) k/uL Monocytes # (0-1.0) k/uL Eosinophils # (0-0.7) k/uL Basophils # (0-0.2) k/uL Macrocytosis PT (9.0-12.0) sec INR (<1.2) APTT (22.0-30.0) sec Sample Site ABG pH (7.35-7.45) ABG pCO2 (35-45) mmHg ABG pO2 (83-108) mmHg ABG HCO3 (21-25) mmol/L ABG Total CO2 (19-24) mmol/L ABG O2 Saturation (94-97) % ABG Base Excess mmol/L Terrance Test FiO2 % Sodium 140 (137-145) mmol/L Potassium 5.8 H (3.5-5.1) mmol/L Chloride 102 (98-107) mmol/L Carbon Dioxide 22 (22-30) mmol/L Anion Gap 16 mmol/L BUN 37 H (7-17) mg/dL Creatinine 2.62 H (0.52-1.04) mg/dL Est GFR (CKD-EPI)AfAm 19 (>60 ml/min/1.73 sqM) Est GFR (CKD-EPI)NonAf 16 (>60 ml/min/1.73 sqM) Glucose 145 H (74-99) mg/dL Plasma Lactic Acid Duran 6.5 H* (0.7-2.0) mmol/L Calcium 9.1 (8.4-10.2) mg/dL Total Bilirubin 0.7 (0.2-1.3) mg/dL AST 2369 H (14-36) U/L ALT 1963 H (4-34) U/L Alkaline Phosphatase 56 (38-126) U/L Troponin I 0.576 H* (0.000-0.034) ng/mL NT-Pro-B Natriuret Pep pg/mL Total Protein 6.6 (6.3-8.2) g/dL Albumin 4.0 (3.5-5.0) g/dL Urine Color Urine Appearance (Clear) Urine pH (5.0-8.0) Ur Specific [place] (1.001-1.035) Urine Protein (Negative) Urine Glucose (UA) (Negative) Urine Ketones (Negative) Urine Blood (Negative) Urine Nitrite (Negative) Urine Bilirubin (Negative) Urine Urobilinogen (<2.0) mg/dL Ur Leukocyte Esterase (Negative) Urine RBC (0-5) /hpf Urine WBC (0-5) /hpf Urine Bacteria (None) /hpf Hyaline Casts (0-2) /lpf Urine Mucus (None) /hpf Urine Opiates Screen (NotDetected) Ur Oxycodone Screen (NotDetected) Urine Methadone Screen (NotDetected) Ur Propoxyphene Screen (NotDetected) Ur Barbiturates Screen (NotDetected) U Tricyclic Antidepress (NotDetected) Ur Phencyclidine Scrn (NotDetected) Ur Amphetamines Screen (NotDetected) U Methamphetamines Scrn (NotDetected) U Benzodiazepines Scrn (NotDetected) Urine Cocaine Screen (NotDetected) U Marijuana (THC) Screen (NotDetected) Coronavirus (PCR) (Not Detectd) 03/01/21 03/01/21 03/01/21 Range/Units 12:05 12:32 12:33 WBC (3.8-10.6) k/uL RBC (3.80-5.40) m/uL Hgb (11.4-16.0) gm/dL Hct (34.0-46.0) % MCV (80.0-100.0) fL MCH (25.0-35.0) pg MCHC (31.0-37.0) g/dL RDW (11.5-15.5) % Plt Count (150-450) k/uL MPV Neutrophils % % Lymphocytes % % Monocytes % % Eosinophils % % Basophils % % Neutrophils # (1.3-7.7) k/uL Lymphocytes # (1.0-4.8) k/uL Monocytes # (0-1.0) k/uL Eosinophils # (0-0.7) k/uL Basophils # (0-0.2) k/uL Macrocytosis PT (9.0-12.0) sec INR (<1.2) APTT (22.0-30.0) sec Sample Site LBRAC ABG pH 7.20 L (7.35-7.45) ABG pCO2 57 H (35-45) mmHg ABG pO2 256 H (83-108) mmHg ABG HCO3 22 (21-25) mmol/L ABG Total CO2 24 (19-24) mmol/L ABG O2 Saturation 99.7 H (94-97) % ABG Base Excess -6.1 mmol/L Terrance Test Yes FiO2 100 % Sodium (137-145) mmol/L Potassium (3.5-5.1) mmol/L Chloride (98-107) mmol/L Carbon Dioxide (22-30) mmol/L Anion Gap mmol/L BUN (7-17) mg/dL Creatinine (0.52-1.04) mg/dL Est GFR (CKD-EPI)AfAm (>60 ml/min/1.73 sqM) Est GFR (CKD-EPI)NonAf (>60 ml/min/1.73 sqM) Glucose (74-99) mg/dL Plasma Lactic Acid Duran (0.7-2.0) mmol/L Calcium (8.4-10.2) mg/dL Total Bilirubin (0.2-1.3) mg/dL AST (14-36) U/L ALT (4-34) U/L Alkaline Phosphatase (38-126) U/L Troponin I (0.000-0.034) ng/mL NT-Pro-B Natriuret Pep 64044 pg/mL Total Protein (6.3-8.2) g/dL Albumin (3.5-5.0) g/dL Urine Color Urine Appearance (Clear) Urine pH (5.0-8.0) Ur Specific [place] (1.001-1.035) Urine Protein (Negative) Urine Glucose (UA) (Negative) Urine Ketones (Negative) Urine Blood (Negative) Urine Nitrite (Negative) Urine Bilirubin (Negative) Urine Urobilinogen (<2.0) mg/dL Ur Leukocyte Esterase (Negative) Urine RBC (0-5) /hpf Urine WBC (0-5) /hpf Urine Bacteria (None) /hpf Hyaline Casts (0-2) /lpf Urine Mucus (None) /hpf Urine Opiates Screen (NotDetected) Ur Oxycodone Screen (NotDetected) Urine Methadone Screen (NotDetected) Ur Propoxyphene Screen (NotDetected) Ur Barbiturates Screen (NotDetected) U Tricyclic Antidepress (NotDetected) Ur Phencyclidine Scrn (NotDetected) Ur Amphetamines Screen (NotDetected) U Methamphetamines Scrn (NotDetected) U Benzodiazepines Scrn (NotDetected) Urine Cocaine Screen (NotDetected) U Marijuana (THC) Screen (NotDetected) Coronavirus (PCR) Not Detected (Not Detectd) Critical Care Time Critical Care Time: Yes Total Critical Care Time: 55 Disposition Clinical Impression: Congestive heart failure, Respiratory failure, Bradycardia, Hypotension Disposition: ADMITTED IP TO THIS HOSP Condition: Critical Is patient prescribed a controlled substance at d/c from ED?: No Referrals: Olegario Lemon MD [Primary Care Provider] - 1-2 days Decision Time: 14:18
[2021-03-01] MEDS ORDERED: PNEUMONIA PROTOCOL UTILIZED 1 EACH MISC PO PRN (11:58)
[2021-03-01] MEDS ORDERED: AZITHROMYCIN 500 MG in SODIUM CHLORIDE 0.9% 250 ML IVPB STA (11:58)
[2021-03-01] MEDS ORDERED: PIPERACILLIN-TAZOBACTAM 3.375 GM in SODIUM CHLORIDE 0.9% 100 ML IVPB STA (11:58)
[2021-03-01] MEDS ORDERED: SODIUM CHLORIDE 0.9% 1,000 ML IV STA (11:59)
[2021-03-01] MEDS ORDERED: ATROPINE SULFATE 0.1 MG/ML 10ML SYRINGE IV STA (12:05)
--- NOTE | 2021-03-01 12:07 | XR ---
EXAMINATION TYPE: XR chest 1V portable DATE OF EXAM: 03/01/2021 COMPARISON: 10/02/2018 INDICATION: Catheter Placement TECHNIQUE: Single frontal view of the chest is obtained. FINDINGS: The heart size is normal. The pulmonary vasculature is slightly prominent. There is mild diffuse increased scattered lung markings bilaterally. This is worsening over the inter kaushal. There is interval placement of an endotracheal tube with the tip 2 cm above the deondre. Nasogastric t ube transverses the thorax tip in the left upper quadrant of the abdomen. IMPRESSION: 1. Diffuse increased lung markings bilaterally is nonspecific worsening over the interval. 2. Catheters discussed above
[2021-03-01 12:29] LABS: Basophils % (A) 0 %; Eosinophils % (A) 0 %; HGB 13.8 gm/dL (11.4-16.0); Lymphocytes # (A) 2.8 k/uL (1.0-4.8); Lymphocytes % (A) 17 %; MCH 32.5 pg (25.0-35.0); MCV 101.5 fL (80.0-100.0); Macrocytosis Slight; Mean Platelet Volume 7.4; Monocytes % (A) 6 %; Neutrophils # (A) 11.9 k/uL (1.3-7.7); Neutrophils % (A) 75 %; Platelet Count 284 k/uL (150-450); RBC 4.24 m/uL (3.80-5.40); RDW 13.4 % (11.5-15.5); WBC 15.9 k/uL (3.8-10.6)
[2021-03-01 12:30] LABS: INR 1.7 (<1.2); Partial Thromboplastin Time 27.3 sec (22.0-30.0); Prothrombin Time 17.1 sec (9.0-12.0)
[2021-03-01] MEDS ORDERED: NOREPINEPHRINE 32 MG in SODIUM CHLORIDE 0.9% 218 ML IV SCH (12:30)
[2021-03-01 12:33] LABS: Appearance,Urine Cloudy (Clear); Bacteria,Urine Rare /hpf; Bilirubin,Urine Negative (Negative); Blood,Urine Negative (Negative); Color,Urine Yellow; Glucose,Urine (UA) Negative (Negative); Hyaline Casts,Urine 19 /lpf (0-2); Ketones,Urine 1+ (Negative); Leukocyte Esterase,Urine Negative (Negative); Mucus,Urine Rare /hpf; Nitrite,Urine Negative (Negative); PH, Urine 5.5 (5.0-8.0); Protein,Urine 1+ (Negative); RBC,Urine 3 /hpf (0-5); Specific Gravity,Urine 1.023 (1.001-1.035); Urobilinogen,Urine <2.0 mg/dL (<2.0); WBC,Urine 3 /hpf (0-5)
[2021-03-01 12:36] LABS: ABG Base Excess -6.1 mmol/L; ABG HCO3 22 mmol/L (21-25); ABG Oxygen Saturation 99.7 % (94-97); ABG PCO2 57 mmHg (35-45); ABG PO2 256 mmHg (83-108); ABG TCO2 24 mmol/L (19-24); Allen Test Performed? Yes
[2021-03-01 12:38] LABS: Amphetamine Screen,Urine Not Detected (NotDetected); Barbiturate Screen,Urine Not Detected (NotDetected); Benzodiazepines Screen,Urine Not Detected (NotDetected); Cocaine Screen,Urine Not Detected (NotDetected); Methadone Screen, Urine Not Detected (NotDetected); Opiate Screen,Urine Detected (NotDetected); Oxycodone Screen, Urine Not Detected (NotDetected); Phencyclidine Screen,Urine Not Detected (NotDetected); Tricyclic Antidepressant,Urine Not Detected (NotDetected); Urn Cannabinoid Scrn Not Detected (NotDetected)
[2021-03-01 12:43] LABS: Calcium 9.1 mg/dL (8.4-10.2); Potassium 5.8 mmol/L (3.5-5.1); Total Bilirubin 0.7 mg/dL (0.2-1.3); Total Protein 6.6 g/dL (6.3-8.2)
--- NOTE | 2021-03-01 13:35 | CT ---
EXAMINATION TYPE: CT brain tiffani love DATE OF EXAM: 03/01/2021 COMPARISON: None HISTORY: unresponsive CT DLP: 1388.5 mGycm, Automated exposure control for dose reduction was used. CONTRAST: Patient injected with 0 mL of Isovue 300. CT of the brain is performed utilizing 3 mm thick sections through the posterior fossa and 3 mm thick sections through the remaining calvarium. Patient is intubated. Study is performed within 24 hours of arrival to the hospital. No abnormal hyperdensity is present to suggest an acute intracranial hemorrhage. No mass lesion is evident. No acute infarcts are evident. Ventricles and sulci are prominent for the patient age. Paranasal sinuses and mastoid air cells within the [id number] are clear. IMPRESSIONS: 1. Age-related atrophy CT cervical spine. COMPARISON: None CT of the cervical spine is performed in the axial plane at 2 mm thick sections. Reconstructed image s in the coronal, and sagittal plane are reviewed on the computer. No acute fractures are evident. Vertebral body alignment is normal. There is loss of disc height to the cervical spine. Vertebral body heights are preserved. Posterior endplate spurring is noted at C3-4 and C5-6. Some central protrusion is present at C2-3 lev el mild anterior thecal sac compression. No stenosis is present. No neural foraminal stenosis is evident. IMPRESSIONS: 1. Degenerative disc changes greatest C3-4 and C5-6. 2. Posterior endplate spurring C3-4 C5-6.
[2021-03-01] MEDS ORDERED: NALOXONE 0.4 MG/ML 1 ML VIAL IV PRN (14:20)
[2021-03-01] MEDS ORDERED: HEPARIN SODIUM 1,000 UN/ML (10ML VL) IV PRN (14:44)
[2021-03-01] MEDS: HEPARIN SOD,PORK IN 0.45% NACL 25,000 UNIT in 0.45% NACL 1 250ML.BAG IV SCH ×2 (15:18→20:36)
--- NOTE | 2021-03-01 16:51 | ECHOF ---
Referral Reason:respiratory failure MEASUREMENTS -------- HEIGHT: 157.5 cm WEIGHT: 72.6 kg BP: 150/62 RVIDd: 3.2 cm (< 3.3) IVSd: 1.1 cm (0.6 - 1.1) LVIDd: 3.0 cm (3.9 - 5.3) LVPWd: 1.2 cm (0.6 - 1.1) IVSs: 1.6 cm LVIDs: 1.8 cm LVPWs: 1.4 cm LA Diam: 3.5 cm (2.7 - 3.8) LAESV Index (A-L): 23.55 ml/m Ao Diam: 2.6 cm (2.0 - 3.7) AV Cusp: 2.1 cm (1.5 - 2.6) MV EXCURSION: 16.269 mm (> 18.000) MV EF SLOPE: 74 mm/s (70 - 150) EPSS: 0.4 cm MV E Nicolas: 0.78 m/s MV DecT: 344 ms MV A Nicolas: 0.74 m/s MV E/A Ratio: 1.05 RAP: 15.00 mmHg RVSP: 38.31 mmHg FINDINGS -------- Sinus rhythm. This was a technically adequate study. The left ventricular size is normal. There is borderline concentric left ventricular hypertrophy. Overall left ventricular systolic function is normal with, an EF between 60 - 65 %. The right ventricle is normal in size. Normal LA size by volume 22+/-6 ml/m2. The right atrium is normal in size. Interatrial and interventricular septum intact. The aortic valve is trileaflet, and appears structurally normal. No aortic stenosis or regurgitation. The mitral valve is normal. Mild tricuspid regurgitation present. There is mild pulmonary hypertension. The right ventricular systolic pressure, as measured by Doppler, is 38.31mmHg. There is no pulmonic regurgitation present. The aortic root size is normal. Normal inferior vena cava with less than 50% inspiratory collapse consistent with estimated right atr ial pressure of 15 mmHg. There is no pericardial effusion. CONCLUSIONS -------- 1. The left ventricular size is normal. 2. There is borderline concentric left ventricular hypertrophy. 3. Overall left ventricular systolic function is normal with, an EF between 60 - 65 %. 4. The aortic valve is trileaflet, and appears structurally normal. No aortic stenosis or regurgitati on. 5. Mild tricuspid regurgitation present. 6. There is mild pulmonary hypertension. 7. The right ventricular systolic pressure, as measured by Doppler, is 38.31mmHg. 8. Normal inferior vena cava with less than 50% inspiratory collapse consistent with estimated right atrial pressure of 15 mmHg. 9. There is no pericardial effusion. RHYTHMIC GYMNASTICS COACH: Brianna Allen RDCS
[2021-03-01 16:53] LABS: Glucose,Whole Blood 155 mg/dL (75-99)
[2021-03-01 17:14] LABS: T4, Free (Free Thyroxine) 2.55 ng/dL (0.78-2.19)
[2021-03-01] MEDS: NOREPINEPHRINE 8 MG in SODIUM CHLORIDE 0.9% 250 ML IV SCH (18:35)
[2021-03-01 18:58] LABS: HCT 41.3 % (34.0-46.0); HGB 13.2 gm/dL (11.4-16.0); Mean Platelet Volume 7.3; Platelet Count 271 k/uL (150-450); RBC 4.13 m/uL (3.80-5.40); RDW 13.3 % (11.5-15.5); WBC 26.9 k/uL (3.8-10.6)
[2021-03-01 19:09] LABS: Albumin 3.5 g/dL (3.5-5.0); Calcium 8.3 mg/dL (8.4-10.2); Total Protein 6.1 g/dL (6.3-8.2)
[2021-03-01 19:11] LABS: Total Bilirubin 0.5 mg/dL (0.2-1.3)
[2021-03-01 19:56] LABS: Band Neutrophils % 5 %; Monocytes # (M) 0.54 k/uL (0-1.0); Neutrophils % (M) 77 %; Nucleated Red Blood Cells 0 /100 WBC (0-0); Total Cells Counted 100
--- NOTE | 2021-03-01 20:04 | CONS ---
CONSULTATION Mrs. Chau is an 86-year-old female, followed by Dr. Jose Mendoza, with a history of paroxysmal atrial fibrillation and history of hypertension. She presented to the emergency room with respiratory distress and unresponsiveness. The history is obtained from the family. The patient has been doing reasonably well. Yesterday she underwent left hand surgery by Dr. Sherman and went home. She usually has a difficult time with anesthetic as well as pain medication. She was feeling tired and started to have nausea and vomiting. This morning she became quite dyspneic with decreasing responsiveness with the nausea and vomiting, was intubated and brought into the emergency room. In the emergency room her initial EKG showed bradycardia and she was hypotensive. She was started on norepinephrine and given IV atropine. She is intubated and in sinus mechanism at this time with a blood pressure in the 130s systolic. The patient has no prior history of documented obstructive coronary artery disease. She has a history of paroxysmal atrial fibrillation and has been anticoagulated. Her left ventricular systolic function in the past was normal by echocardiography. She has occasional peripheral edema. No PND and no orthopnea. She is active physically. She has no dizziness or palpitations or syncope. MEDICATIONS: Her medications at home included Neurontin, Celebrex, eye drops, Coumadin, Dyazide once daily, 80 mg twice a day, Prilosec, Singulair, Synthroid 0.125 mg daily, Symbicort and ProAir. She was started on [place] and Zofran post surgical intervention. REVIEW OF SYSTEMS: Review of systems could not be obtained, but according to the family, she has a history of asthma, has been stable and followed by Dr. Vanessa. She has no recent fever. GI SYSTEM: She had the nausea and vomiting yesterday and today but not on a regular basis. She has no history of GI bleeding. SYSTEM: She had dysuria or hematuria. NERVOUS SYSTEM: No stroke or seizure. PHYSICAL EXAMINATION: She is an 86-year-old female, intubated. Blood pressure is running in the 130s with a heart rate in the 70s. HEAD: Normocephalic. EYES: Sclerae anicteric. NECK: Good carotid upstroke. No bruit. LUNGS: Clear to auscultation anteriorly. HEART: Regular rate and rhythm. S1, S2. No S3, with systolic ejection murmur 2/6 at the base. No diastolic murmur. No rub. ABDOMEN: Soft. Positive bowel sounds. No organomegaly. EXTREMITIES: No edema, with chronic discoloration. On presentation to the emergency room her blood pressure was 69 and her heart rate was in the 40s. Her initial EKG showed junctional rhythm with probable retrograde P-waves. On the monitor now she is in sinus mechanism. There is no evidence of acute ST- segment changes. Her chest x-ray revealed bilateral infiltrates. She had a CT scan of the head and the cervical spine that showed degenerative disc changes and no acute intracranial process. LAB DATA: Lab data revealed a white blood cell count of 15.9. INR of 1.7. pH 7.2, pCO2 of 57, PO2 of 256. Potassium 5.8, BUN and creatinine of 37 and 2.62. Reviewing her old data, her renal function were normal in December of 2019. Her AST was 2369, ALT of 1963. Her troponin 0.576 and her NT-proBNP was 17,800. IMPRESSION: 1. Respiratory failure with possible aspiration pneumonia with nausea and vomiting post hand surgery. 2. Paroxysmal atrial fibrillation; back in sinus mechanism with junctional rhythm when she was hypotensive and hypoxemic. 3. Prior history of paroxysmal atrial fibrillation, anticoagulated. 4. History of hypertension. 5. Renal failure, acute. 6. Hyperkalemia. 7. Abnormal liver function tests, probably related to hypotension and shock liver. 8. Elevated NT-proBNP. On examination, I do not believe she is in acute heart failure, and the elevation is most likely related to the acute event. 9. Mild troponin elevation, most likely representing a type 2 myocardial infarction related to her presenting illness. RECOMMENDATIONS: From the cardiac standpoint, patient's sotalol will be on hold for now. We can start weaning her norepinephrine and her dopamine. I will obtain an echocardiogram with Doppler to evaluate her left ventricular systolic function. Patient is receiving fluid. She will be evaluated by Dr. Vanessa. I will initiate treatment with heparin because of the paroxysmal atrial fibrillation. Depending on her progress, further recommendations will be made. I discussed those findings with the family. Thank you for this consult. Will follow with you. MMODL / IJN: [id number] / PRISCA
[2021-03-01] MEDS: IPRATROPIUM-ALBUTEROL 3 ML NEB INHALATION SCH (20:17)
[2021-03-01] MEDS: PIPERACILLIN-TAZOBACTAM 3.375 GM in SODIUM CHLORIDE 0.9% 100 ML IVPB SCH (21:16)
[2021-03-01] MEDS: CHLORHEXIDINE GLUCONATE 15 ML CUP MUCOUS MEM SCH (21:16)
[2021-03-02] MEDS: IPRATROPIUM-ALBUTEROL 3 ML NEB INHALATION SCH ×7 (00:08→23:52)
[2021-03-02 04:10] LABS: Basophils # (A) 0.1 k/uL (0-0.2); Basophils % (A) 0 %; Eosinophils # (A) 0.1 k/uL (0-0.7); Eosinophils % (A) 0 %; HCT 39.6 % (34.0-46.0); HGB 12.8 gm/dL (11.4-16.0); Lymphocytes # (A) 2.2 k/uL (1.0-4.8); Lymphocytes % (A) 10 %; MCH 32.7 pg (25.0-35.0); MCHC 32.3 g/dL (31.0-37.0); MCV 101.2 fL (80.0-100.0); Mean Platelet Volume 7.7; Monocytes # (A) 0.6 k/uL (0-1.0); Monocytes % (A) 3 %; Neutrophils # (A) 19.5 k/uL (1.3-7.7); Neutrophils % (A) 86 %; Platelet Count 223 k/uL (150-450); RBC 3.91 m/uL (3.80-5.40); RDW 12.8 % (11.5-15.5); WBC 22.7 k/uL (3.8-10.6)
[2021-03-02] MEDS: PIPERACILLIN-TAZOBACTAM 3.375 GM in SODIUM CHLORIDE 0.9% 100 ML IVPB SCH ×2 (04:13→15:37)
[2021-03-02] MEDS: NOREPINEPHRINE 8 MG in SODIUM CHLORIDE 0.9% 250 ML IV SCH (04:14)
[2021-03-02 05:20] LABS: ABG Base Excess -7.7 mmol/L; ABG HCO3 19 mmol/L (21-25); ABG Oxygen Saturation 96.6 % (94-97); ABG PCO2 41 mmHg (35-45); ABG PH 7.27 (7.35-7.45); ABG PO2 93 mmHg (83-108); ABG TCO2 20 mmol/L (19-24); Allen Test Performed? Yes
[2021-03-02 05:41] LABS: African American GFR (CKD) 13 (>60 ml/min/1.73 sqM); Albumin 3.1 g/dL (3.5-5.0); Alkaline Phosphatase 50 U/L (38-126); Anion Gap 13 mmol/L; Blood Urea Nitrogen 48 mg/dL (7-17); Calcium 7.7 mg/dL (8.4-10.2); Carbon Dioxide 16 mmol/L (22-30); Chloride 113 mmol/L (98-107); Glucose 132 mg/dL (74-99); Non-African American GFR(CKD) 11 (>60 ml/min/1.73 sqM); Sodium 142 mmol/L (137-145); Total Bilirubin 0.6 mg/dL (0.2-1.3); Total Protein 5.8 g/dL (6.3-8.2)
[2021-03-02 06:00] LABS: Potassium 4.8 mmol/L (3.5-5.1)
[2021-03-02 06:44] LABS: INR 2.3 (<1.2); Prothrombin Time 22.4 sec (9.0-12.0)
--- NOTE | 2021-03-02 07:58 | XR ---
EXAMINATION TYPE: XR chest 1V portable DATE OF EXAM: 03/02/2021 Comparison: 03/01/2021 Clinical History: 86-year-old female Tube placement Findings: ET tube tip 2.8 cm from the deondre, satisfactory. NG tube courses below the diaphragm. The heart bord er line enlarged. Patchy bilateral interstitial opacities persist without significant change. No siza ble pleural effusion. Impression: Interstitial infiltrates persist without significant change.
--- NOTE | 2021-03-02 08:16 | P.NPCON ---
History of Present Illness - Reason for Consult acute renal failure - History of Present Illness Reason for consultation: Acute kidney injury History of present illness: Patient is a 86-year-old female seen in renal consultation for acute kidney injury. Patient's creatinine as of January 2020 was 1.0 and was elevated at 2.6 to this admission. It is up to 3.53 today. She is currently on dopamine and Levo phed. She is also receiving IV fluids. Patient's blood pressure was in the systolic 60s on admission. She did receive 2 L normal saline bolus. Ejection fraction is noted to be okay. Patient is currently intubated. History is limited. In her home medications and to see Celebrex as well as Dyazide. Both of these are currently held. She is currently on antibiotics for possible pneumonia. Sputum culture is pending. Blood pressure stable. Vital signs are stable. On vasopressor support. HEENT: Intubated. LUNGS: Breath sounds decreased. HEART: Rate and Rhythm are regular. ABDOMEN: Soft, no distention. EXTREMITITES: No edema. Past Medical History Past Medical History: Atrial Fibrillation, Asthma, Chest Pain / Angina, Hearing Disorder / Deafness, Thyroid Disorder Additional Past Medical History / Comment(s): gout, History of Any Multi-Drug Resistant Organisms: None Reported Past Surgical History: Adenoidectomy, Appendectomy, Joint Replacement, Tonsillectomy Additional Past Surgical History / Comment(s): bilateral knee and ankle replacement, breast augmentation, thumb surgery Past Anesthesia/Blood Transfusion Reactions: Postoperative Nausea & Vomiting (PONV) Past Psychological History: No Psychological Hx Reported Smoking Status: Never smoker Past Alcohol Use History: None Reported Past Drug Use History: None Reported - Past Family History Mother Family Medical History: Cancer, Congestive Heart Failure (CHF) Additional Family Medical History / Comment(s): father cancer Medications and Allergies Home Medications Medication Instructions Recorded Confirmed Type Albuterol Sulfate [Proair Hfa] 1 - 2 puff INHALATION RT-Q6H PRN 06/13/16 03/01/21 History Budesonide/Formoterol Fumarate 2 puff INHALATION RT-BID 06/13/16 03/01/21 History [Symbicort 160-4.5 Mcg Inhaler] Levothyroxine Sodium [Synthroid] 125 mcg PO DAILY 06/13/16 03/01/21 History Montelukast [Singulair] 10 mg PO HS 06/13/16 03/01/21 History Omeprazole [PriLOSEC] 20 mg PO BID 06/13/16 03/01/21 History Potassium Chloride [Klor-Con 10] 10 meq PO DAILY 06/13/16 03/01/21 History Sotalol [Betapace] 80 mg PO BID 06/13/16 03/01/21 History Triamterene-Hctz 37.5-25Mg 1 cap PO DAILY 06/13/16 03/01/21 History [Dyazide 37.5-25 Capsule] Warfarin Sodium [Coumadin] 2 mg PO DIRECTED 10/02/18 03/01/21 History Warfarin Sodium [Coumadin] 4 mg PO DIRECTED 10/02/18 03/01/21 History Brimonidine Tartrate [Alphagan P 1 drops RIGHT EYE BID 03/01/21 03/01/21 History 0.2% Ophth Soln] Celecoxib [CeleBREX] 200 mg PO DAILY 03/01/21 03/01/21 History Gabapentin [Neurontin] 300 mg PO DAILY 03/01/21 03/01/21 History HYDROcodone/APAP 7.5-325MG [Sebastian 1 tab PO Q6H PRN 03/01/21 03/01/21 History 7.5-325] Latanoprost/Pf [Latanoprost 0.005% 1 drop RIGHT EYE HS 03/01/21 03/01/21 History Eye Drop] Triamcinolone 0.1% Cream [Kenalog 1 applicatio TOPICAL BID 03/01/21 03/01/21 Hi story 0.1% Cream] ondansetron HCL [Zofran] 8 mg PO Q8HR PRN 03/01/21 03/01/21 History Allergies Allergy/AdvReac Type Severity Reaction Status Date / Time bee venom protein (honey bee) Allergy Anaphylaxis Verified 03/01/21 12:44 Physical Exam Vitals: Vital Signs Temp Pulse Resp BP Pulse Ox 03/02/21 07:44 64 03/02/21 07:36 66 03/02/21 07:30 67 20 94/52 98 03/02/21 07:15 67 20 99/48 98 03/02/21 07:00 66 20 119/58 99 03/02/21 06:45 66 20 130/67 99 03/02/21 06:30 67 20 121/62 98 03/02/21 06:15 66 20 117/61 98 03/02/21 06:00 65 20 113/61 98 03/02/21 05:45 66 20 113/58 98 03/02/21 05:30 66 20 120/60 97 03/02/21 05:16 66 21 115/60 97 03/02/21 04:45 70 20 117/58 97 03/02/21 04:30 68 21 116/60 98 03/02/21 04:15 69 20 122/63 99 03/02/21 04:06 68 03/02/21 04:00 99.3 F 74 20 106/57 100 03/02/21 03:56 76 03/02/21 03:45 72 20 112/58 98 03/02/21 03:30 74 20 112/50 98 03/02/21 03:15 79 20 121/56 97 03/02/21 03:00 78 20 115/52 97 03/02/21 02:45 71 20 114/55 98 03/02/21 02:30 70 20 111/55 98 03/02/21 02:15 70 20 108/55 98 03/02/21 02:00 70 20 115/56 98 03/02/21 01:45 70 20 113/55 98 03/02/21 01:30 69 20 113/55 98 03/02/21 01:15 70 20 114/52 97 03/02/21 01:00 68 20 106/53 97 03/02/21 00:45 69 20 109/55 97 03/02/21 00:30 69 20 118/58 98 03/02/21 00:19 72 03/02/21 00:15 68 20 114/55 99 03/02/21 00:09 71 03/02/21 00:00 98.4 F 72 20 111/54 99 03/01/21 23:45 67 20 109/56 99 03/01/21 23:30 68 20 112/55 99 03/01/21 23:15 67 20 107/57 99 03/01/21 23:00 70 20 108/56 99 03/01/21 22:45 72 20 82/34 99 03/01/21 22:39 73 20 82/34 99 03/01/21 22:30 75 20 108/52 99 03/01/21 22:15 70 20 108/49 99 03/01/21 22:00 70 20 102/47 99 03/01/21 21:45 70 20 119/57 98 03/01/21 21:30 75 20 94/45 98 03/01/21 21:15 72 20 83/44 98 03/01/21 21:00 72 20 105/50 98 03/01/21 20:45 74 20 105/53 98 03/01/21 20:30 72 20 99/53 98 03/01/21 20:25 73 03/01/21 20:19 68 03/01/21 20:15 69 20 102/55 99 03/01/21 20:00 98.6 F 71 20 104/53 99 03/01/21 19:45 71 97/55 99 03/01/21 19:30 71 94/51 99 03/01/21 19:15 70 20 90/45 99 03/01/21 19:00 69 20 72/42 98 03/01/21 18:45 69 20 83/47 98 03/01/21 18:30 70 20 72/42 98 03/01/21 18:15 71 20 76/38 98 03/01/21 18:00 71 22 90/39 98 03/01/21 17:45 75 20 86/44 98 03/01/21 17:30 77 20 88/47 98 03/01/21 17:15 81 20 110/54 99 03/01/21 17:00 100.4 F H 88 20 113/57 98 03/01/21 16:00 97.5 F L 78 20 135/64 98 03/01/21 15:00 78 20 150/62 100 03/01/21 14:00 70 20 110/37 99 03/01/21 13:30 70 20 108/44 99 03/01/21 13:15 72 20 118/51 100 03/01/21 13:05 81 20 119/62 100 03/01/21 12:40 72 14 87/36 98 03/01/21 12:25 70 14 78/40 97 03/01/21 12:21 70 14 78/44 98 03/01/21 12:05 74 14 89/45 98 03/01/21 11:26 45 L 16 69/46 88 L Intake and Output 03/01/21 03/02/21 03/02/21 22:59 06:59 14:59 Intake Total 2351.300 1355.278 130 Output Total 90 50 Balance 2261.300 1305.278 130 Intake: IV 2019 1040 130 Sodium Chloride 0.9% 2019 1040 130 000 ml @ 130 mls/hr IV . Q7H42M [facility] Rx#:[id number] Intake, IV Titration 331.300 315.278 Amount DOPamine DRIP 800 mg In 118.730 47.855 Dextrose/Water 1 250ml. bag @ 10 MCG/KG/MIN 13. 608 mls/hr IV .[id number] ONE Rx#:[id number] Heparin Sod,Pork in 0.45% 46.158 NaCl 25,000 unit In 0.45 % NaCl 1 250ml.bag @ 12 UNITS/KG/HR 8.709 mls/hr IV .Q24H [facility] Rx#: [id number] Norepinephrine 32 mg In 19.369 Sodium Chloride 0.9% 218 ml @ 0.05 MCG/KG/MIN 1. 701 mls/hr IV .Q24H [facility] Rx#:[id number] Norepinephrine 8 mg In 55.237 198.221 Sodium Chloride 0.9% 250 ml @ 0.05 MCG/KG/MIN 7. 022 mls/hr IV .Q24H [facility] Rx#:[id number] propofoL 1,000 mg In 91.806 69.202 Empty Bag 1 bag @ Titrate IV .Q0M [facility] Rx#: [id number] Output: Urine 90 50 Other: Voiding Method Indwelling Catheter Indwelling Catheter Weight 72.575 kg 75.4 kg Results - Lab Results Most recent lab results ABG pH 7.27 (7.35-7.45) L 03/02/21 05:14 ABG pCO2 41 mmHg (35-45) 03/02/21 05:14 ABG pO2 93 mmHg (83-108) 03/02/21 05:14 ABG HCO3 19 mmol/L (21-25) L 03/02/21 05:14 ABG O2 Saturation 96.6 % (94-97) 03/02/21 05:14 Calcium 7.7 mg/dL (8.4-10.2) L 03/02/21 03:51 03/02/21 03:51 03/02/21 03:51 Assessment and Plan Plan: Assessment: 1. Acute kidney injury secondary to ATN secondary to hypotension/shock. Oliguric. Creatinine 1 as of December 2019. It was elevated at 2.6 this admission and is up to 3.53 today. 2. Shock maintained on vasopressor support. 3. Metabolic acidosis secondary to acute kidney injury and IV fluids. 4. Possible pneumonia on antibiotics. Plan: I will change normal saline to bicarb drip to be run at 1 mL an hour. Check renal ultrasound. Repeat BMP this evening. Wean FiO2 and vasopressors. Continue to monitor renal function and urine output. Continue to assess daily for potential need for renal replacement therapy. Thank you for the consultation. I will continue to follow the patient with you during her hospital stay.
[2021-03-02] MEDS: CHLORHEXIDINE GLUCONATE 15 ML CUP MUCOUS MEM SCH ×2 (08:28→20:31)
[2021-03-02] MEDS: PANTOPRAZOLE 40 MG/10 ML VIAL IV SCH (08:28)
[2021-03-02] MEDS: DEXTROSE 5% IN WATER 1,000 ML with SODIUM BICARB (1 MEQ/ML) 150 ML IV SCH ×2 (09:10→20:31)
--- NOTE | 2021-03-02 09:43 | P.PN ---
Subjective HISTORY OF PRESENTING ILLNESS Patient is a pleasant 86-year-old female with history of paroxysmal atrial fibrillation, hypertension and recent left hand surgery 02/28/2021. She had undergone surgery and then apparently was feeling tired with nausea and vomiting and became short of breath and was brought to the emergency department and intubated. She initially was hypotensive and given norepinephrine. She also was bradycardiac and atropine was given. She has been placed on a dopamine drip, currently at 3 mcg/kg/m. Currently she is in normal sinus rhythm on the dopamine drip. She had mildly elevated troponins and has been placed on a heparin drip and also found have kidney injury with creatinine increased from 2.6 03/01 up to 3.5 03/02. She is maintained on a bicarbonate drip. Troponins were elevated at 0.57, 0.67. Her cardiogram 03/01 shows ejection fraction 60-65%, mild tricuspid regurgitation, RVSP 38 with normal diastolic parameters. X-ray shows interstitial infiltrates and ET tube 2.8 cm from the deondre. She remains intubated with assist control, FiO2 40%, PEEP of 5. She remains on norepinephrine at 0.08. REVIEW OF SYSTEMS Unable to supply review of systems secondary to being intubated. PHYSICAL EXAMINATION Vital signs reviewed. CONSTITUTIONAL: No apparent distress, ill appearing, intubated and sedated HEENT: Head is normocephalic. Pupils are equal, round. Sclerae anicteric. Mucous membranes of the mouth are moist. No JVD. No carotid bruit. CHEST EXAMINATION: Lungs are coarse bilaterally with rhonchi HEART EXAMINATION: Regular rate and rhythm. S1, S2 heard. No murmurs, gallops or rub. ABDOMEN: Soft, nontender. Positive bowel sounds. EXTREMITIES: 2+ peripheral pulses, no lower extremity edema and no calf tenderness. NEUROLOGIC EXAMINATION: Patient is awake, alert and oriented x3. ASSESSMENT 1. Acute respiratory failure likely related to aspiration in the 90s versus pneumonia 2. Status post hand surgery 3. Paroxysmal A. fib, currently normal sinus rhythm 4. Temporary bradycardia, likely related to hypoxia and medications with intubation, improved 5. Acute kidney injury 6. Hypotension, shock, likely related to surgery, sepsis 7. Elevated proBNP likely related to acute kidney injury, echocardiogram with normal diastolic function, normal left ventricular function and does not appear overloaded 8. Elevated troponin, suspect type II mechanism with normal left ventricular ejection fraction PLAN Patient does not appear to be volume overloaded and would continue with IV fluid hydration, currently on bicarbonate drip at 100 mL an hour. Patient did have temporary bradycardia however we will wean dopamine and monitor response. Appears most likely related to hypoxia and intubation. Patient with mildly elevated troponins and we will continue heparin drip for 48 hours however appears type II mechanism from hypoxia and renal failure with normal left ventricular ejection fraction. Continue to wean vasopressors as able. Prognosis guarded. Objective - Vital Signs Vital signs: Vital Signs Temp 99.4 F 03/02/21 08:00 Pulse 64 03/02/21 09:15 Resp 20 03/02/21 09:15 BP 109/59 03/02/21 09:15 Pulse Ox 99 03/02/21 09:15 Intake & Output 03/01/21 03/02/21 03/02/21 18:59 06:59 18:59 Intake Total 276.571 6288.122 517.164 Output Total 60 80 0 Balance 271.967 8836.122 517.164 Weight 72.575 kg 75.4 kg Intake: IV 260 2800 280 Sodium Chloride 0.9% 1, 260 2800 260 000 ml @ 130 mls/hr IV . Q7H42M STA Rx#:[id number] ns 20 Intake, IV Titration 216.299 442.122 237.164 Amount DOPamine DRIP 800 mg In 121.905 47.855 Dextrose/Water 1 250ml. bag @ 10 MCG/KG/MIN 13. 608 mls/hr IV .[id number] ONE Rx#:[id number] Dextrose 5% in Water 1, 100 000 ml @ 100 mls/hr IV . [id number] MARGOT with Sodium Bicarb (1 Meq/ml) 150 ml Rx#:[id number] Heparin Sod,Pork in 0.45% 46.158 137.164 NaCl 25,000 unit In 0.45 % NaCl 1 250ml.bag @ 12 UNITS/KG/HR 8.709 mls/hr IV .Q24H MARGOT Rx#: [id number] Norepinephrine 32 mg In 19.908 Sodium Chloride 0.9% 218 ml @ 0.05 MCG/KG/MIN 1. 701 mls/hr IV .Q24H MARGOT Rx#:[id number] Norepinephrine 8 mg In 6.085 247.373 Sodium Chloride 0.9% 250 ml @ 0.05 MCG/KG/MIN 7. 022 mls/hr IV .Q24H MARGOT Rx#:[id number] propofoL 1,000 mg In 68.401 100.736 Empty Bag 1 bag @ Titrate IV .Q0M MARGOT Rx#: [id number] Output: Urine 60 80 0 Other: Voiding Method Indwelling Catheter Indwelling Catheter - Labs CBC & Chem 7: 03/02/21 03:51 03/02/21 03:51 Labs: Abnormal Lab Results - Last 24 Hours (Table) 03/01/21 03/01/21 03/01/21 Range/Units 12:05 12:05 12:05 WBC 15.9 H (3.8-10.6) k/uL MCV 101.5 H (80.0-100.0) fL Neutrophils # 11.9 H (1.3-7.7) k/uL Neutrophils # (Manual) (1.3-7.7) k/uL PT 17.1 H (9.0-12.0) sec INR 1.7 H (<1.2) APTT (22.0-30.0) sec ABG pH (7.35-7.45) ABG pCO2 (35-45) mmHg ABG pO2 (83-108) mmHg ABG HCO3 (21-25) mmol/L ABG O2 Saturation (94-97) % Potassium (3.5-5.1) mmol/L Chloride (98-107) mmol/L Carbon Dioxide (22-30) mmol/L BUN (7-17) mg/dL Creatinine (0.52-1.04) mg/dL Glucose (74-99) mg/dL POC Glucose (mg/dL) (75-99) mg/dL Plasma Lactic Acid Duran (0.7-2.0) mmol/L Calcium (8.4-10.2) mg/dL AST (14-36) U/L ALT (4-34) U/L Troponin I (0.000-0.034) ng/mL Total Protein (6.3-8.2) g/dL Albumin (3.5-5.0) g/dL TSH (0.465-4.680) mIU/L Free T4 (0.78-2.19) ng/dL Urine Appearance Cloudy H (Clear) Urine Protein 1+ H (Negative) Urine Ketones 1+ H (Negative) Urine Bacteria Rare H (None) /hpf Hyaline Casts 19 H (0-2) /lpf Urine Mucus Rare H (None) /hpf Urine Opiates Screen Detected H (NotDetected) 03/01/21 03/01/21 03/01/21 Range/Units 12:05 12:05 12:05 WBC (3.8-10.6) k/uL MCV (80.0-100.0) fL Neutrophils # (1.3-7.7) k/uL Neutrophils # (Manual) (1.3-7.7) k/uL PT (9.0-12.0) sec INR (<1.2) APTT (22.0-30.0) sec ABG pH (7.35-7.45) ABG pCO2 (35-45) mmHg ABG pO2 (83-108) mmHg ABG HCO3 (21-25) mmol/L ABG O2 Saturation (94-97) % Potassium 5.8 H (3.5-5.1) mmol/L Chloride (98-107) mmol/L Carbon Dioxide (22-30) mmol/L BUN 37 H (7-17) mg/dL Creatinine 2.62 H (0.52-1.04) mg/dL Glucose 145 H (74-99) mg/dL POC Glucose (mg/dL) (75-99) mg/dL Plasma Lactic Acid Duran 6.5 H* (0.7-2.0) mmol/L Calcium (8.4-10.2) mg/dL AST 2369 H (14-36) U/L ALT 1963 H (4-34) U/L Troponin I 0.576 H* (0.000-0.034) ng/mL Total Protein (6.3-8.2) g/dL Albumin (3.5-5.0) g/dL TSH (0.465-4.680) mIU/L Free T4 (0.78-2.19) ng/dL Urine Appearance (Clear) Urine Protein (Negative) Urine Ketones (Negative) Urine Bacteria (None) /hpf Hyaline Casts (0-2) /lpf Urine Mucus (None) /hpf Urine Opiates Screen (NotDetected) 03/01/21 03/01/21 03/01/21 Range/Units 12:32 14:45 14:50 WBC (3.8-10.6) k/uL MCV (80.0-100.0) fL Neutrophils # (1.3-7.7) k/uL Neutrophils # (Manual) (1.3-7.7) k/uL PT (9.0-12.0) sec INR (<1.2) APTT (22.0-30.0) sec ABG pH 7.20 L (7.35-7.45) ABG pCO2 57 H (35-45) mmHg ABG pO2 256 H (83-108) mmHg ABG HCO3 (21-25) mmol/L ABG O2 Saturation 99.7 H (94-97) % Potassium (3.5-5.1) mmol/L Chloride (98-107) mmol/L Carbon Dioxide (22-30) mmol/L BUN (7-17) mg/dL Creatinine (0.52-1.04) mg/dL Glucose (74-99) mg/dL POC Glucose (mg/dL) (75-99) mg/dL Plasma Lactic Acid Duran 2.9 H* (0.7-2.0) mmol/L Calcium (8.4-10.2) mg/dL AST (14-36) U/L ALT (4-34) U/L Troponin I (0.000-0.034) ng/mL Total Protein (6.3-8.2) g/dL Albumin (3.5-5.0) g/dL TSH 0.414 L (0.465-4.680) mIU/L Free T4 2.55 H (0.78-2.19) ng/dL Urine Appearance (Clear) Urine Protein (Negative) Urine Ketones (Negative) Urine Bacteria (None) /hpf Hyaline Casts (0-2) /lpf Urine Mucus (None) /hpf Urine Opiates Screen (NotDetected) 03/01/21 03/01/21 03/01/21 Range/Units 15:00 16:42 18:10 WBC (3.8-10.6) k/uL MCV (80.0-100.0) fL Neutrophils # (1.3-7.7) k/uL Neutrophils # (Manual) (1.3-7.7) k/uL PT (9.0-12.0) sec INR (<1.2) APTT (22.0-30.0) sec ABG pH (7.35-7.45) ABG pCO2 (35-45) mmHg ABG pO2 (83-108) mmHg ABG HCO3 (21-25) mmol/L ABG O2 Saturation (94-97) % Potassium (3.5-5.1) mmol/L Chloride (98-107) mmol/L Carbon Dioxide (22-30) mmol/L BUN (7-17) mg/dL Creatinine (0.52-1.04) mg/dL Glucose (74-99) mg/dL POC Glucose (mg/dL) 155 H (75-99) mg/dL Plasma Lactic Acid Duran (0.7-2.0) mmol/L Calcium (8.4-10.2) mg/dL AST (14-36) U/L ALT (4-34) U/L Troponin I 0.679 H* 1.130 H* (0.000-0.034) ng/mL Total Protein (6.3-8.2) g/dL Albumin (3.5-5.0) g/dL TSH (0.465-4.680) mIU/L Free T4 (0.78-2.19) ng/dL Urine Appearance (Clear) Urine Protein (Negative) Urine Ketones (Negative) Urine Bacteria (None) /hpf Hyaline Casts (0-2) /lpf Urine Mucus (None) /hpf Urine Opiates Screen (NotDetected) 03/01/21 03/01/21 03/01/21 Range/Units 18:10 18:10 18:10 WBC 26.9 H (3.8-10.6) k/uL MCV (80.0-100.0) fL Neutrophils # (1.3-7.7) k/uL Neutrophils # (Manual) 22.00 H (1.3-7.7) k/uL PT (9.0-12.0) sec INR (<1.2) APTT (22.0-30.0) sec ABG pH (7.35-7.45) ABG pCO2 (35-45) mmHg ABG pO2 (83-108) mmHg ABG HCO3 (21-25) mmol/L ABG O2 Saturation (94-97) % Potassium (3.5-5.1) mmol/L Chloride (98-107) mmol/L Carbon Dioxide 21 L (22-30) mmol/L BUN 43 H (7-17) mg/dL Creatinine 2.92 H (0.52-1.04) mg/dL Glucose 147 H (74-99) mg/dL POC Glucose (mg/dL) (75-99) mg/dL Plasma Lactic Acid Duran 2.8 H* (0.7-2.0) mmol/L Calcium 8.3 L (8.4-10.2) mg/dL AST 53122 H (14-36) U/L ALT 8885 H (4-34) U/L Troponin I (0.000-0.034) ng/mL Total Protein 6.1 L (6.3-8.2) g/dL Albumin (3.5-5.0) g/dL TSH (0.465-4.680) mIU/L Free T4 (0.78-2.19) ng/dL Urine Appearance (Clear) Urine Protein (Negative) Urine Ketones (Negative) Urine Bacteria (None) /hpf Hyaline Casts (0-2) /lpf Urine Mucus (None) /hpf Urine Opiates Screen (NotDetected) 03/01/21 03/02/21 03/02/21 Range/Units 21:45 03:51 03:51 WBC 22.7 H (3.8-10.6) k/uL MCV 101.2 H (80.0-100.0) fL Neutrophils # 19.5 H (1.3-7.7) k/uL Neutrophils # (Manual) (1.3-7.7) k/uL PT (9.0-12.0) sec INR (<1.2) APTT (22.0-30.0) sec ABG pH (7.35-7.45) ABG pCO2 (35-45) mmHg ABG pO2 (83-108) mmHg ABG HCO3 (21-25) mmol/L ABG O2 Saturation (94-97) % Potassium (3.5-5.1) mmol/L Chloride 113 H (98-107) mmol/L Carbon Dioxide 16 L (22-30) mmol/L BUN 48 H (7-17) mg/dL Creatinine 3.53 H (0.52-1.04) mg/dL Glucose 132 H (74-99) mg/dL POC Glucose (mg/dL) (75-99) mg/dL Plasma Lactic Acid Duran 2.5 H* (0.7-2.0) mmol/L Calcium 7.7 L (8.4-10.2) mg/dL AST (14-36) U/L ALT (4-34) U/L Troponin I (0.000-0.034) ng/mL Total Protein 5.8 L (6.3-8.2) g/dL Albumin 3.1 L (3.5-5.0) g/dL TSH (0.465-4.680) mIU/L Free T4 (0.78-2.19) ng/dL Urine Appearance (Clear) Urine Protein (Negative) Urine Ketones (Negative) Urine Bacteria (None) /hpf Hyaline Casts (0-2) /lpf Urine Mucus (None) /hpf Urine Opiates Screen (NotDetected) 03/02/21 03/02/21 03/02/21 Range/Units 03:51 03:51 05:14 WBC (3.8-10.6) k/uL MCV (80.0-100.0) fL Neutrophils # (1.3-7.7) k/uL Neutrophils # (Manual) (1.3-7.7) k/uL PT 22.4 H (9.0-12.0) sec INR 2.3 H (<1.2) APTT 62.4 H (22.0-30.0) sec ABG pH 7.27 L (7.35-7.45) ABG pCO2 (35-45) mmHg ABG pO2 (83-108) mmHg ABG HCO3 19 L (21-25) mmol/L ABG O2 Saturation (94-97) % Potassium (3.5-5.1) mmol/L Chloride (98-107) mmol/L Carbon Dioxide (22-30) mmol/L BUN (7-17) mg/dL Creatinine (0.52-1.04) mg/dL Glucose (74-99) mg/dL POC Glucose (mg/dL) (75-99) mg/dL Plasma Lactic Acid Duran (0.7-2.0) mmol/L Calcium (8.4-10.2) mg/dL AST (14-36) U/L ALT (4-34) U/L Troponin I (0.000-0.034) ng/mL Total Protein (6.3-8.2) g/dL Albumin (3.5-5.0) g/dL TSH (0.465-4.680) mIU/L Free T4 (0.78-2.19) ng/dL Urine Appearance (Clear) Urine Protein (Negative) Urine Ketones (Negative) Urine Bacteria (None) /hpf Hyaline Casts (0-2) /lpf Urine Mucus (None) /hpf Urine Opiates Screen (NotDetected) 03/02/21 Range/Units 06:42 WBC (3.8-10.6) k/uL MCV (80.0-100.0) fL Neutrophils # (1.3-7.7) k/uL Neutrophils # (Manual) (1.3-7.7) k/uL PT (9.0-12.0) sec INR (<1.2) APTT 67.4 H (22.0-30.0) sec ABG pH (7.35-7.45) ABG pCO2 (35-45) mmHg ABG pO2 (83-108) mmHg ABG HCO3 (21-25) mmol/L ABG O2 Saturation (94-97) % Potassium (3.5-5.1) mmol/L Chloride (98-107) mmol/L Carbon Dioxide (22-30) mmol/L BUN (7-17) mg/dL Creatinine (0.52-1.04) mg/dL Glucose (74-99) mg/dL POC Glucose (mg/dL) (75-99) mg/dL Plasma Lactic Acid Duran (0.7-2.0) mmol/L Calcium (8.4-10.2) mg/dL AST (14-36) U/L ALT (4-34) U/L Troponin I (0.000-0.034) ng/mL Total Protein (6.3-8.2) g/dL Albumin (3.5-5.0) g/dL TSH (0.465-4.680) mIU/L Free T4 (0.78-2.19) ng/dL Urine Appearance (Clear) Urine Protein (Negative) Urine Ketones (Negative) Urine Bacteria (None) /hpf Hyaline Casts (0-2) /lpf Urine Mucus (None) /hpf Urine Opiates Screen (NotDetected) Microbiology - Last 24 Hours (Table) 03/01/21 16:58 Gram Stain - Preliminary Sputum Sputum Culture - Preliminary
[2021-03-02] MEDS ORDERED: CISATRACURIUM 2 MG/ML 5 ML VIAL IV ONE ×2 (10:11→10:29)
[2021-03-02 10:16] LABS: ALT 8490 U/L (4-34)
[2021-03-02] MEDS ORDERED: HYDROCORTISONE SUCCINATE 100 MG/2 ML VIAL IV STA (10:29)
[2021-03-02] MEDS: SODIUM CHLORIDE 0.9% 150 ML with VASOPRESSIN 60 UNIT IV SCH ×2 (10:48)
--- NOTE | 2021-03-02 10:50 | US ---
EXAMINATION TYPE: US kidneys/renal and bladder DATE OF EXAM: 03/02/2021 COMPARISON: NONE CLINICAL HISTORY: 86-year-old female GUZMAN . TECHNIQUE: Multiple sonographic images of the kidneys and bladder are obtained. 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 EXAM MEASUREMENTS: Right Kidney: 10.1 x 4.7 x 3.4 cm Left Kidney: Unable to visualize due to patient position and unable to roll. Right Kidney: No hydronephrosis or masses seen Left Kidney: unable to visualize Bladder: not seen patient; has catheter in. Bilateral Jets seen: no IMPRESSION: 1. Unable to position the patient for assessment of the left kidney. Left kidney could not be imaged. 2. No hydronephrosis on the right. 3. Bladder not visualized, likely collapsed from indwelling Langley catheter.
[2021-03-02 11:05] LABS: AST 13701 U/L (14-36)
--- NOTE | 2021-03-02 11:33 | XR ---
EXAMINATION TYPE: XR chest 1V portable DATE OF EXAM: 03/02/2021 Comparison: 03/02/2021 Clinical History: 86-year-old female line placement Findings: ET tube tip remains at the medial clavicular heads. NG tube courses below the diaphragm. Left subclav soco CVC tip in the right atrium. Heart normal size. Patchy bibasilar opacities persist. Background in terstitial changes are similar. Impression: 1. Left subclavian CVC tip within the right atrium. 2. Persistent bibasilar airspace disease and background interstitial changes.
--- NOTE | 2021-03-02 11:33 | PCN ---
PROCEDURE NOTE PROCEDURE PERFORMED: Left subclavian triple-lumen catheter. PREOP DIAGNOSIS: Administration of fluids and pressors. POSTOP DIAGNOSIS: Administration of fluids and pressors. SPORT SHOE SPIKE ASSEMBLER: Dr. Vanessa and Dr. Escudero. TRIPLE LUMEN CATHETER PLACEMENT: Indication: Hemodynamic monitoring/Intravenous access. A time-out was completed verifying correct patient, procedure, site, positioning, and implant(s) or special equipment if applicable. The patient was placed in a dependent position appropriate for triple lumen catheter placement based on the vein to be cannulated. The patient's left shoulder was prepped and draped in sterile fashion. 1% Lidocaine was used to anesthetize the surrounding skin area. A triple lumen 9F Cordis catheter was introduced into the subclavian vein using Seldinger technique. The catheter was threaded smoothly over the guide wire and appropriate blood return was obtained. Each lumen of the catheter was evacuated of air and flushed with sterile saline. The catheter was then sutured in place to the skin and a sterile dressing applied. Perfusion to the extremity distal to the point of catheter insertion was checked and found to be adequate. We used the left subclavian site. There was no immediate complications. There was good blood return from all 3 ports. The catheter was sutured in place. A sterile dressing applied by the nurse. A chest x-ray will be done. There was no immediate complication. The patient tolerated the procedure well. MMODL / IJN: [id number] /
--- NOTE | 2021-03-02 11:41 | PCN ---
PROCEDURE NOTE PROCEDURE PERFORMED: Right radial art line. PREOP DIAGNOSIS: Frequent blood draws and blood gas monitoring. POSTOP DIAGNOSIS: Frequent blood draws and blood gas monitoring. LAST TURNER: Dr. Vanessa and Dr. Escudero. ARTERIAL LINE PLACEMENT: Indications: Hemodynamic monitoring. A time-out was completed verifying correct patient, procedure, site, positioning, and implant(s) or special equipment if applicable. Terrance's test was performed to ensure adequate perfusion. The patient's right wrist was prepped and draped in sterile fashion. 1% Lidocaine was used to anesthetize the area. An 18G Arrow arterial line was introduced into the radial artery. The catheter was threaded over the guide wire and the needle was removed with appropriate pulsatile blood return. Blood loss was minimal. The catheter was then sutured in place to the skin and a sterile dressing applied. Perfusion to the extremity distal to the point of catheter insertion was checked and found to be adequate. The patient tolerated the procedure well and there were no complications. There was no immediate complication the patient tolerated procedure well. There was good blood return and waveform. The catheter was sutured in place. A sterile dressing was applied by the nurse. There was no immediate complication. The patient tolerated the procedure well. MMODL / IJN: [id number] /
--- NOTE | 2021-03-02 12:18 | P.CNPUL ---
History of Present Illness Consult date: 03/02/21 Requesting physician: Solomon Ruiz Reason for consult: other Chief complaint: Respiratory failure. History of present illness: Pulmonary/critical care consultation dated 03/02/2021. 86-year-old female who typically sees Dr. Lemon as a primary. I see her for her asthma. Apparently, the patient had left thumb surgery on February 28. The patient was admitted to the hospital the following day on March 01. She was apparently found by her daughter to be unresponsive. The patient apparently a lso had some emesis, and may have aspirated. EMS was called and brought her into the emergency room. There, she was seen by Dr. Abhijit Bennett. The patient was poorly responsive and the patient was intubated in the emergency department. He call me about the patient yesterday, and I accepted the patient into the intensive care unit. Because of her inability to protect her airway, and her poor respiratory status, the patient was intubated, and remains on mechanical ventilator. She is currently on the volume assist control mode, rate 20, tidal volume 400, FiO2 40%, and PEEP of 5. Arterial blood gases show a PaO2 of 93, PaCO2 41, and the pH is 7.27. This blood gases consistent with metabolic acidosis. Currently, she is on heparin via weight based protocol, propofol at 30 mcg/kg/m, ampules of sodium bicarbonate and D5W at 100 mL an hour, saline at 20 mL an hour, and norepinephrine at 67 mcg/m. I asked the nurse to go ahead and get a cortisol level. I also asked the nurses start her on vasopressin at 0.03 units per minute. In addition, we placed a left subclavian triple lumen catheter, and a right radial art line. Lab data currently includes a white count 22.7, hemoglobin 12.8, hematocrit 39.6, and platelet count of 223,000. PT is 22.4, INR 2.3, and PTT is 67.4. Sodium is 142, potassium 4.8, chlorides 113, CO2 16, anion gap is 13, BUN is 48, creatinine is 3.53, glucose 132. AST is 13,701 and the ALT is 8490. Troponin was 1.130. N-terminal proBNP was 17,800. Drug screen was positive for opiates. Coronavirus testing was negative. Urine is evaluated. Chest x-ray my opinion is consistent with interstitial edema, although there may be some infiltrates in the bibasilar regions of the lung. Review of Systems The patient is currently intubated and sedated, in no review of systems can be done. Not much history is obtained from the ER angela. Past Medical History Past Medical History: Atrial Fibrillation, Asthma, Chest Pain / Angina, Hearing Disorder / Deafness, Thyroid Disorder Additional Past Medical History / Comment(s): gout, History of Any Multi-Drug Resistant Organisms: None Reported Past Surgical History: Adenoidectomy, Appendectomy, Joint Replacement, Tonsillectomy Additional Past Surgical History / Comment(s): bilateral knee and ankle replacement, breast augmentation, thumb surgery Past Anesthesia/Blood Transfusion Reactions: Postoperative Nausea & Vomiting (PONV) Past Psychological History: No Psychological Hx Reported Smoking Status: Never smoker Past Alcohol Use History: None Reported Past Drug Use History: None Reported - Past Family History Mother Family Medical History: Cancer, Congestive Heart Failure (CHF) Additional Family Medical History / Comment(s): father cancer Medications and Allergies Home Medications Medication Instructions Recorded Confirmed Type Albuterol Sulfate [Proair Hfa] 1 - 2 puff INHALATION RT-Q6H PRN 06/13/16 03/01/21 History Budesonide/Formoterol Fumarate 2 puff INHALATION RT-BID 06/13/16 03/01/21 History [Symbicort 160-4.5 Mcg Inhaler] Levothyroxine Sodium [Synthroid] 125 mcg PO DAILY 06/13/16 03/01/21 History Montelukast [Singulair] 10 mg PO HS 06/13/16 03/01/21 History Omeprazole [PriLOSEC] 20 mg PO BID 06/13/16 03/01/21 History Potassium Chloride [Klor-Con 10] 10 meq PO DAILY 06/13/16 03/01/21 History Sotalol [Betapace] 80 mg PO BID 06/13/16 03/01/21 History Triamterene-Hctz 37.5-25Mg 1 cap PO DAILY 06/13/16 03/01/21 History [Dyazide 37.5-25 Capsule] Warfarin Sodium [Coumadin] 2 mg PO DIRECTED 10/02/18 03/01/21 History Warfarin Sodium [Coumadin] 4 mg PO DIRECTED 10/02/18 03/01/21 History Brimonidine Tartrate [Alphagan P 1 drops RIGHT EYE BID 03/01/21 03/01/21 History 0.2% Ophth Soln] Celecoxib [CeleBREX] 200 mg PO DAILY 03/01/21 03/01/21 History Gabapentin [Neurontin] 300 mg PO DAILY 03/01/21 03/01/21 History HYDROcodone/APAP 7.5-325MG [[place] 1 tab PO Q6H PRN 03/01/21 03/01/21 History 7.5-325] Latanoprost/Pf [Latanoprost 0.005% 1 drop RIGHT EYE HS 03/01/21 03/01/21 History Eye Drop] Triamcinolone 0.1% Cream [Kenalog 1 applicatio TOPICAL BID 03/01/21 03/01/21 History 0.1% Cream] ondansetron HCL [Zofran] 8 mg PO Q8HR PRN 03/01/21 03/01/21 History Allergies Allergy/AdvReac Type Severity Reaction Status Date / Time bee venom protein (honey bee) Allergy Anaphylaxis Verified 03/01/21 12:44 Physical Exam Osteopathic Statement: *. No significant issues noted on an osteopathic structural exam other than those noted in the History and Physical/Consult. Vitals: Vital Signs Temp Pulse Resp BP Pulse Ox 03/02/21 11:39 58 L 03/02/21 11:30 58 L 03/02/21 11:00 61 20 114/72 99 03/02/21 10:45 68 20 110/55 99 03/02/21 10:30 64 20 104/64 98 03/02/21 10:15 71 20 79/45 99 03/02/21 10:00 64 20 97/53 100 03/02/21 09:45 64 20 90/51 100 03/02/21 09:30 63 20 85/46 99 03/02/21 09:15 64 20 109/59 99 03/02/21 09:00 66 20 113/63 99 03/02/21 08:45 66 20 103/60 99 03/02/21 08:30 66 20 96/57 99 03/02/21 08:15 66 20 100/52 99 03/02/21 08:00 99.4 F 67 20 96/53 99 03/02/21 07:45 67 20 91/54 98 03/02/21 07:44 64 03/02/21 07:36 66 03/02/21 07:30 67 20 94/52 98 03/02/21 07:15 67 20 99/48 98 03/02/21 07:00 66 20 119/58 99 03/02/21 06:45 66 20 130/67 99 03/02/21 06:30 67 20 121/62 98 03/02/21 06:15 66 20 117/61 98 03/02/21 06:00 65 20 113/61 98 03/02/21 05:45 66 20 113/58 98 03/02/21 05:30 66 20 120/60 97 03/02/21 05:16 66 21 115/60 97 03/02/21 04:45 70 20 117/58 97 03/02/21 04:30 68 21 116/60 98 03/02/21 04:15 69 20 122/63 99 03/02/21 04:06 68 03/02/21 04:00 99.3 F 74 20 106/57 100 03/02/21 03:56 76 03/02/21 03:45 72 20 112/58 98 03/02/21 03:30 74 20 112/50 98 03/02/21 03:15 79 20 121/56 97 03/02/21 03:00 78 20 115/52 97 03/02/21 02:45 71 20 114/55 98 03/02/21 02:30 70 20 111/55 98 03/02/21 02:15 70 20 108/55 98 03/02/21 02:00 70 20 115/56 98 03/02/21 01:45 70 20 113/55 98 03/02/21 01:30 69 20 113/55 98 03/02/21 01:15 70 20 114/52 97 03/02/21 01:00 68 20 106/53 97 03/02/21 00:45 69 20 109/55 97 03/02/21 00:30 69 20 118/58 98 03/02/21 00:19 72 03/02/21 00:15 68 20 114/55 99 03/02/21 00:09 71 03/02/21 00:00 98.4 F 72 20 111/54 99 03/01/21 23:45 67 20 109/56 99 03/01/21 23:30 68 20 112/55 99 03/01/21 23:15 67 20 107/57 99 03/01/21 23:00 70 20 108/56 99 03/01/21 22:45 72 20 82/34 99 03/01/21 22:39 73 20 82/34 99 03/01/21 22:30 75 20 108/52 99 03/01/21 22:15 70 20 108/49 99 03/01/21 22:00 70 20 102/47 99 03/01/21 21:45 70 20 119/57 98 03/01/21 21:30 75 20 94/45 98 03/01/21 21:15 72 20 83/44 98 03/01/21 21:00 72 20 105/50 98 03/01/21 20:45 74 20 105/53 98 03/01/21 20:30 72 20 99/53 98 03/01/21 20:25 73 03/01/21 20:19 68 03/01/21 20:15 69 20 102/55 99 03/01/21 20:00 98.6 F 71 20 104/53 99 03/01/21 19:45 71 97/55 99 03/01/21 19:30 71 94/51 99 03/01/21 19:15 70 20 90/45 99 03/01/21 19:00 69 20 72/42 98 03/01/21 18:45 69 20 83/47 98 03/01/21 18:30 70 20 72/42 98 03/01/21 18:15 71 20 76/38 98 03/01/21 18:00 71 22 90/39 98 03/01/21 17:45 75 20 86/44 98 03/01/21 17:30 77 20 88/47 98 03/01/21 17:15 81 20 110/54 99 03/01/21 17:00 100.4 F H 88 20 113/57 98 03/01/21 16:00 97.5 F L 78 20 135/64 98 03/01/21 15:00 78 20 150/62 100 03/01/21 14:00 70 20 110/37 99 03/01/21 13:30 70 20 108/44 99 03/01/21 13:15 72 20 118/51 100 03/01/21 13:05 81 20 119/62 100 03/01/21 12:40 72 14 87/36 98 03/01/21 12:25 70 14 78/40 97 03/01/21 12:21 70 14 78/44 98 03/01/21 12:05 74 14 89/45 98 Intake and Output 03/01/21 03/02/21 03/02/21 22:59 06:59 14:59 Intake Total 2351.300 1355.278 831.003 Output Total 90 50 0 Balance 2261.300 1305.278 831.003 Intake: IV 2019 1040 320 Sodium Chloride 0.9% 2019 1040 260 000 ml @ 130 mls/hr IV . Q7H42M [facility] Rx#:[id number] ns 60 Intake, IV Titration 331.300 315.278 511.003 Amount DOPamine DRIP 800 mg In 118.730 47.855 Dextrose/Water 1 250ml. bag @ 10 MCG/KG/MIN 13. 608 mls/hr IV .[id number] ONE Rx#:[id number] Dextrose 5% in Water 1, 300 000 ml @ 100 mls/hr IV . [id number] [facility] with Sodium Bicarb (1 Meq/ml) 150 ml Rx#:[id number] Heparin Sod,Pork in 0.45% 46.158 137.164 NaCl 25,000 unit In 0.45 % NaCl 1 250ml.bag @ 12 UNITS/KG/HR 8.709 mls/hr IV .Q24H [facility] Rx#: [id number] Norepinephrine 32 mg In 19.369 Sodium Chloride 0.9% 218 ml @ 0.05 MCG/KG/MIN 1. 701 mls/hr IV .Q24H [facility] Rx#:[id number] Norepinephrine 8 mg In 55.237 198.221 Sodium Chloride 0.9% 250 ml @ 0.05 MCG/KG/MIN 7. 022 mls/hr IV .Q24H [facility] Rx#:[id number] Sodium Chloride 0.9% 150 4.6 ml @ 0.03 UNITS/MIN 4.59 mls/hr IV .Q24H [facility] with Vasopressin 60 unit Rx#: [id number] propofoL 1,000 mg In 91.806 69.202 69.239 Empty Bag 1 bag @ Titrate IV .Q0M [facility] Rx#: [id number] Output: Urine 90 50 0 Other: Voiding Method Indwelling Catheter Indwelling Catheter Weight 72.575 kg 75.4 kg ABP, PAP, CO, CI - Last 8 Hours Arterial Blood Pressure 109/56 Arterial Blood Pressure 139/72 No acute distress, sedated, and intubated, orally, and on the mechanical ventilator. Saturations are 99%. HEENT examination is grossly unremarkable. Neck supple. Full range of motion. No adenopathy thyromegaly or neck vein distention. Cardiovascular examination reveals regular rhythm rate. S1-S2 normal. No S3 or S4. No discernible murmur noted. Heart rate 58 bpm. Lungs reveal coarse bilateral rhonchi. No wheezes. No crackles. Breath sounds equal bilaterally but diminished throughout. A left subclavian triple-lumen catheter is noted. Abdomen soft bowel sounds are heard. No masses or tenderness. Extremities are intact. No cyanosis clubbing or edema. A right radial art line is noted. Skin is without rash or lesion. Neurologic examination cannot be adequately assessed. Results - Laboratory Findings CBC and BMP: 03/02/21 03:51 03/02/21 03:51 ABG ABG pH 7.27 (7.35-7.45) L 03/02/21 05:14 ABG pCO2 41 mmHg (35-45) 03/02/21 05:14 ABG pO2 93 mmHg (83-108) 03/02/21 05:14 ABG O2 Saturation 96.6 % (94-97) 03/02/21 05:14 PT/INR, D-dimer PT 22.4 sec (9.0-12.0) H 03/02/21 03:51 INR 2.3 (<1.2) H 03/02/21 03:51 Abnormal lab findings: Abnormal Labs 03/01/21 03/01/21 03/01/21 12:05 12:05 12:05 WBC 15.9 H MCV 101.5 H Neutrophils # 11.9 H Neutrophils # (Manual) PT 17.1 H INR 1.7 H APTT ABG pH ABG pCO2 ABG pO2 ABG HCO3 ABG O2 Saturation Potassium Chloride Carbon Dioxide BUN Creatinine Glucose POC Glucose (mg/dL) Plasma Lactic Acid Duran Calcium AST ALT Troponin I Total Protein Albumin TSH Free T4 Urine Appearance Cloudy H Urine Protein 1+ H Urine Ketones 1+ H Urine Bacteria Rare H Hyaline Casts 19 H Urine Mucus Rare H Urine Opiates Screen Detected H 03/01/21 03/01/21 03/01/21 12:05 12:05 12:05 WBC MCV Neutrophils # Neutrophils # (Manual) PT INR APTT ABG pH ABG pCO2 ABG pO2 ABG HCO3 ABG O2 Saturation Potassium 5.8 H Chloride Carbon Dioxide BUN 37 H Creatinine 2.62 H Glucose 145 H POC Glucose (mg/dL) Plasma Lactic Acid Duran 6.5 H* Calcium AST 2369 H ALT 1963 H Troponin I 0.576 H* Total Protein Albumin TSH Free T4 Urine Appearance Urine Protein Urine Ketones Urine Bacteria Hyaline Casts Urine Mucus Urine Opiates Screen 03/01/21 03/01/21 03/01/21 12:32 14:45 14:50 WBC MCV Neutrophils # Neutrophils # (Manual) PT INR APTT ABG pH 7.20 L ABG pCO2 57 H ABG pO2 256 H ABG HCO3 ABG O2 Saturation 99.7 H Potassium Chloride Carbon Dioxide BUN Creatinine Glucose POC Glucose (mg/dL) Plasma Lactic Acid Duran 2.9 H* Calcium AST ALT Troponin I Total Protein Albumin TSH 0.414 L Free T4 2.55 H Urine Appearance Urine Protein Urine Ketones Urine Bacteria Hyaline Casts Urine Mucus Urine Opiates Screen 03/01/21 03/01/21 03/01/21 15:00 16:42 18:10 WBC MCV Neutrophils # Neutrophils # (Manual) PT INR APTT ABG pH ABG pCO2 ABG pO2 ABG HCO3 ABG O2 Saturation Potassium Chloride Carbon Dioxide BUN Creatinine Glucose POC Glucose (mg/dL) 155 H Plasma Lactic Acid Duran Calcium AST ALT Troponin I 0.679 H* 1.130 H* Total Protein Albumin TSH Free T4 Urine Appearance Urine Protein Urine Ketones Urine Bacteria Hyaline Casts Urine Mucus Urine Opiates Screen 03/01/21 03/01/21 03/01/21 18:10 18:10 18:10 WBC 26.9 H MCV Neutrophils # Neutrophils # (Manual) 22.00 H PT INR APTT ABG pH ABG pCO2 ABG pO2 ABG HCO3 ABG O2 Saturation Potassium Chloride Carbon Dioxide 21 L BUN 43 H Creatinine 2.92 H Glucose 147 H POC Glucose (mg/dL) Plasma Lactic Acid Duran 2.8 H* Calcium 8.3 L AST 28964 H ALT 8885 H Troponin I Total Protein 6.1 L Albumin TSH Free T4 Urine Appearance Urine Protein Urine Ketones Urine Bacteria Hyaline Casts Urine Mucus Urine Opiates Screen 03/01/21 03/02/21 03/02/21 21:45 03:51 03:51 WBC 22.7 H MCV 101.2 H Neutrophils # 19.5 H Neutrophils # (Manual) PT INR APTT ABG pH ABG pCO2 ABG pO2 ABG HCO3 ABG O2 Saturation Potassium Chloride 113 H Carbon Dioxide 16 L BUN 48 H Creatinine 3.53 H Glucose 132 H POC Glucose (mg/dL) Plasma Lactic Acid Duran 2.5 H* Calcium 7.7 L AST ALT Troponin I Total Protein 5.8 L Albumin 3.1 L TSH Free T4 Urine Appearance Urine Protein Urine Ketones Urine Bacteria Hyaline Casts Urine Mucus Urine Opiates Screen 03/02/21 03/02/21 03/02/21 03:51 03:51 05:14 WBC MCV Neutrophils # Neutrophils # (Manual) PT 22.4 H INR 2.3 H APTT 62.4 H ABG pH 7.27 L ABG pCO2 ABG pO2 ABG HCO3 19 L ABG O2 Saturation Potassium Chloride Carbon Dioxide BUN Creatinine Glucose POC Glucose (mg/dL) Plasma Lactic Acid Duran Calcium AST ALT Troponin I Total Protein Albumin TSH Free T4 Urine Appearance Urine Protein Urine Ketones Urine Bacteria Hyaline Casts Urine Mucus Urine Opiates Screen 03/02/21 03/02/21 06:42 06:42 WBC MCV Neutrophils # Neutrophils # (Manual) PT INR APTT 67.4 H ABG pH ABG pCO2 ABG pO2 ABG HCO3 ABG O2 Saturation Potassium Chloride Carbon Dioxide BUN Creatinine Glucose POC Glucose (mg/dL) Plasma Lactic Acid Duran Calcium AST 95495 H ALT 8490 H Troponin I Total Protein Albumin TSH Free T4 Urine Appearance Urine Protein Urine Ketones Urine Bacteria Hyaline Casts Urine Mucus Urine Opiates Screen - Diagnostic Findings Chest x-ray: image reviewed Assessment and Plan Assessment: Acute hypoxemic respiratory failure, of unclear etiology, requiring intubation and mechanical ventilation on 03/01/2021. Possibilities include non-ST elevation myocardial infarction (NSTEMI), acute pulmonary edema, and possible aspiration pneumonia. Acute kidney injury secondary to acute tubular necrosis. Anion gap metabolic acidosis. Shock liver secondary to sepsis and respiratory failure. History of atrial fibrillation. History of chronic bronchial asthma. History of deafness. History of hypothyroidism. History of gastroesophageal reflux disease. Plan: Plan dated 03/02/2021. The patient was started on a sodium bicarbonate drip. That was for the metabolic acidosis. The patient remains on heparin via weightbase protocol, propofol at 30 mcg/kg/m, saline at 20 mL an hour, and norepinephrine at 67 mcg/m. Dopamine has been turned off. The patient will get a random cortisol level and a pro-calcitonin level. The patient will be started on vasopressin at 0.03 units per minute. Azithromycin was discontinued. Ativan is discontinued. Patient is given one dose of hydrocortisone 100 mg IV push. The patient is maintained on Zosyn. Additional recommendations and suggestions are forthcoming and the patient will be placed on albuterol sulfate and ipratropium bromide updraft treatments, every 4 hours. Prognosis is very guarded. We will continue to follow the patient and make recommendations where appropriate. Time with Patient: Greater than 30
[2021-03-02 13:02] VITALS: BMI 30.4
[2021-03-02 13:03] VITALS: RESP 20
[2021-03-02] MEDS: HEPARIN SOD,PORK IN 0.45% NACL 25,000 UNIT in 0.45% NACL 1 250ML.BAG IV SCH (15:36)
[2021-03-02] MEDS ORDERED: AZITHROMYCIN 500 MG in SODIUM CHLORIDE 0.9% 250 ML IVPB SCH (16:00)
[2021-03-02] MEDS: DOPamine DRIP 800 MG in DEXTROSE/WATER 1 250ML.BAG IV SCH (23:28)
[2021-03-03 03:01] LABS: Albumin 2.7 g/dL (3.5-5.0); Calcium 6.9 mg/dL (8.4-10.2); Potassium 3.5 mmol/L (3.5-5.1); Total Bilirubin 0.5 mg/dL (0.2-1.3)
[2021-03-03 03:09] LABS: Basophils % (A) 0 %; Eosinophils % (A) 0 %; HCT 37.3 % (34.0-46.0); HGB 12.6 gm/dL (11.4-16.0); Lymphocytes # (A) 0.9 k/uL (1.0-4.8); Lymphocytes % (A) 6 %; MCH 33.2 pg (25.0-35.0); MCHC 33.9 g/dL (31.0-37.0); MCV 97.7 fL (80.0-100.0); Mean Platelet Volume 8.5; Monocytes # (A) 0.2 k/uL (0-1.0); Monocytes % (A) 2 %; Neutrophils # (A) 12.4 k/uL (1.3-7.7); Neutrophils % (A) 92 %; RBC 3.81 m/uL (3.80-5.40); RDW 13.5 % (11.5-15.5); WBC 13.6 k/uL (3.8-10.6)
[2021-03-03 03:26] LABS: Platelet Count 104 k/uL (150-450)
[2021-03-03] MEDS: PIPERACILLIN-TAZOBACTAM 3.375 GM in SODIUM CHLORIDE 0.9% 100 ML IVPB SCH ×2 (03:53→16:06)
[2021-03-03] MEDS: IPRATROPIUM-ALBUTEROL 3 ML NEB INHALATION SCH ×4 (04:15→15:03)
[2021-03-03] MEDS ORDERED: POTASSIUM BICARBONATE/CIT AC 20 MEQ TABLET.EFF NG-TUBE SCH (04:30)
[2021-03-03] MEDS ORDERED: POTASSIUM CHLORIDE 20 MEQ in WATER FOR INJECTION 1 100ML.BAG IVPB ONE (04:30)
[2021-03-03 05:29] LABS: ABG Base Excess -3.1 mmol/L; ABG HCO3 23 mmol/L (21-25); ABG PCO2 41 mmHg (35-45); ABG PH 7.35 (7.35-7.45); ABG PO2 102 mmHg (83-108); ABG TCO2 24 mmol/L (19-24); Allen Test Performed? Yes
[2021-03-03] MEDS: DEXTROSE 5% IN WATER 1,000 ML with SODIUM BICARB (1 MEQ/ML) 150 ML IV SCH (06:33)
--- NOTE | 2021-03-03 07:38 | XR ---
EXAMINATION TYPE: XR chest 1V portable DATE OF EXAM: 03/03/2021 COMPARISON: 03/02/2021 HISTORY: 86 years Female. STUDY INDICATION GIVEN: Tube placement . TECHNIQUE: AP portable semiupright chest radiograph FINDINGS AND IMPRESSION: Tip of endotracheal tube in the midthoracic trachea. Enteric tube courses into the stomach. Tip of le ft central venous catheter (likely subclavian) at the the cavoatrial junction. Bibasilar opacities are again demonstrated which could be on the basis of multifocal pneumonia and/or subsegmental atelectasis. Mild pulmonary edema. Both findings without significant change. Trace left pleural effusion no significant change. No pneumothorax. Cardiomediastinal silhouette within normal limit. Bilateral breast implants with rim calcifications again seen. Osseous structures are stable.
[2021-03-03] MEDS ORDERED: FUROSEMIDE 10 MG/ML 10 ML VIAL IV STA (08:33)
--- NOTE | 2021-03-03 08:37 | P.PN ---
Subjective Patient is seen in follow-up for acute kidney injury. Renal function continues to worsen. Oliguric. Oliguric. Maintained on bicarb drip. Intubated. On low dose dopamine due to bradycardia. Vital signs are stable. On dopamine. HEENT: Intubated. LUNGS: Breath sounds decreased. HEART: Rate and Rhythm are regular. ABDOMEN: Soft, no distention. EXTREMITITES: No edema. Objective - Vital Signs Vital signs: Vital Signs Temp 97.4 F L 03/03/21 08:00 Pulse 68 03/03/21 08:15 Resp 20 03/03/21 08:15 BP 106/54 03/03/21 08:00 Pulse Ox 98 03/03/21 08:15 Intake & Output 03/02/21 03/03/21 03/03/21 18:59 06:59 18:59 Intake Total 2151.141 1957.365 338.6 Output Total 30 10 0 Balance 2121.141 1947.365 338.6 Weight 75.4 kg 79.8 kg Intake: IV 478 276 46 Sodium Chloride 0.9% 1, 260 000 ml @ 130 mls/hr IV . Q7H42M [facility] Rx#:[id number] juarez ns flush 18 36 6 ns 200 240 40 Intake, IV Titration 7018.747 1538.365 204.6 Amount DOPamine DRIP 800 mg In 8.718 Dextrose/Water 1 250ml. bag @ 10 MCG/KG/MIN 14. 138 mls/hr IV .[id number] [facility] Rx#:[id number] Dextrose 5% in Water 1, 1000 1200 200 000 ml @ 100 mls/hr IV . [id number] [facility] with Sodium Bicarb (1 Meq/ml) 150 ml Rx#:[id number] Heparin Sod,Pork in 0.45% 199.278 NaCl 25,000 unit In 0.45 % NaCl 1 250ml.bag @ 12 UNITS/KG/HR 8.709 mls/hr IV .Q24H [facility] Rx#: [id number] Norepinephrine 8 mg In 90.207 8.447 Sodium Chloride 0.9% 250 ml @ 0.05 MCG/KG/MIN 7. 022 mls/hr IV .Q24H [facility] Rx#:[id number] Piperacillin-Tazobactam 3 100 .375 gm In Sodium Chloride 0.9% 100 ml @ 25 mls/hr IVPB Q12H [facility] Rx# :[id number] Sodium Chloride 0.9% 150 36.8 55.2 4.6 ml @ 0.03 UNITS/MIN 4.59 mls/hr IV .Q24H [facility] with Vasopressin 60 unit Rx#: [id number] propofoL 1,000 mg In 166.856 100 Empty Bag 1 bag @ Titrate IV .Q0M [facility] Rx#: [id number] Tube Feeding 50 219 58 Other 30 90 30 Output: Urine 30 10 0 Other: Voiding Method Indwelling Catheter Indwelling Catheter # Bowel Movements 1 ABP, PAP, CO, CI - Last Documented Arterial Blood Pressure 108/53 - Labs CBC & Chem 7: 03/03/21 02:33 03/03/21 02:33 Labs: Abnormal Lab Results - Last 24 Hours (Table) 03/02/21 03/02/21 03/02/21 Range/Units 06:42 10:40 14:30 WBC (3.8-10.6) k/uL Plt Count (150-450) k/uL Neutrophils # (1.3-7.7) k/uL Lymphocytes # (1.0-4.8) k/uL APTT (22.0-30.0) sec ABG O2 Saturation (94-97) % Chloride (98-107) mmol/L Carbon Dioxide (22-30) mmol/L BUN (7-17) mg/dL Creatinine (0.52-1.04) mg/dL Glucose (74-99) mg/dL Calcium (8.4-10.2) mg/dL AST 97392 H (14-36) U/L ALT 8490 H (4-34) U/L Total Protein (6.3-8.2) g/dL Albumin (3.5-5.0) g/dL Procalcitonin 3.25 H (0.02-0.09) ng/mL Stool Occult Blood Positive H (Negative) 03/02/21 03/02/21 03/03/21 Range/Units 15:45 18:49 02:33 WBC 13.6 H (3.8-10.6) k/uL Plt Count 104 L D (150-450) k/uL Neutrophils # 12.4 H (1.3-7.7) k/uL Lymphocytes # 0.9 L (1.0-4.8) k/uL APTT 65.3 H (22.0-30.0) sec ABG O2 Saturation (94-97) % Chloride 109 H (98-107) mmol/L Carbon Dioxide 18 L (22-30) mmol/L BUN 60 H (7-17) mg/dL Creatinine 4.74 H (0.52-1.04) mg/dL Glucose 202 H (74-99) mg/dL Calcium 7.0 L (8.4-10.2) mg/dL AST (14-36) U/L ALT (4-34) U/L Total Protein (6.3-8.2) g/dL Albumin (3.5-5.0) g/dL Procalcitonin (0.02-0.09) ng/mL Stool Occult Blood (Negative) 03/03/21 03/03/21 Range/Units 02:33 05:25 WBC (3.8-10.6) k/uL Plt Count (150-450) k/uL Neutrophils # (1.3-7.7) k/uL Lymphocytes # (1.0-4.8) k/uL APTT (22.0-30.0) sec ABG O2 Saturation 98.0 H (94-97) % Chloride (98-107) mmol/L Carbon Dioxide 20 L (22-30) mmol/L BUN 64 H (7-17) mg/dL Creatinine 4.98 H (0.52-1.04) mg/dL Glucose 189 H (74-99) mg/dL Calcium 6.9 L (8.4-10.2) mg/dL AST 7201 H (14-36) U/L ALT 5173 H (4-34) U/L Total Protein 5.0 L (6.3-8.2) g/dL Albumin 2.7 L (3.5-5.0) g/dL Procalcitonin (0.02-0.09) ng/mL Stool Occult Blood (Negative) Microbiology - Last 24 Hours (Table) 03/01/21 12:20 Blood Culture - Preliminary Blood No Growth after 24 hours 03/01/21 12:10 Blood Culture - Preliminary Blood No Growth after 24 hours 03/01/21 16:58 Gram Stain - Preliminary Sputum Sputum Culture - Preliminary Assessment and Plan Plan: Assessment: 1. Acute kidney injury secondary to ATN secondary to hypotension/shock. Oliguric. Creatinine 1 as of December 2019. It was elevated at 2.6 this admission and is up to 4.98 today. Right kidney normal in size. Left kidney unable to be visualized. 2. Shock maintained on vasopressor support. 3. Metabolic acidosis secondary to acute kidney injury and IV fluids. 4. Possible pneumonia on antibiotics. 5. A. fib, then became bradycardic. On dopamine. Plan: Maintain bicarb drip for now. Maintain tube feeds. Repeat BMP this evening. Wean FiO2 and vasopressors. Continue to monitor renal function and urine output. Lasix 80 mg IV once today. If no improvement in renal function and urine output in the next 24 hours, will initiate renal replacement therapy.
[2021-03-03] MEDS: PANTOPRAZOLE 40 MG/10 ML VIAL IV SCH (08:48)
[2021-03-03] MEDS: CHLORHEXIDINE GLUCONATE 15 ML CUP MUCOUS MEM SCH (08:48)
[2021-03-03] MEDS ORDERED: ASPIRIN 81 MG PO SCH (09:00)
--- NOTE | 2021-03-03 09:40 | P.PN ---
Subjective HISTORY OF PRESENTING ILLNESS Patient is a pleasant 86-year-old female with history of paroxysmal atrial fibrillation, hypertension and recent left hand surgery 02/28/2021. She had undergone surgery and then apparently was feeling tired with nausea and vomiting and became short of breath and was brought to the emergency department and intubated. She initially was hypotensive and given norepinephrine. She also was bradycardiac and atropine was given. She has been placed on a dopamine drip, currently at 3 mcg/kg/m. Currently she is in normal sinus rhythm on the dopamine drip. She had mildly elevated troponins and has been placed on a heparin drip and also found have kidney injury with creatinine increased from 2.6 03/01 up to 3.5 03/02. She is maintained on a bicarbonate drip. Troponins were elevated at 0.57, 0.67. Her cardiogram 03/01 shows ejection fraction 60-65%, mild tricuspid regurgitation, RVSP 38 with normal diastolic parameters. X-ray shows interstitial infiltrates and ET tube 2.8 cm from the deondre. She remains intubated with assist control, FiO2 40%, PEEP of 5. She remains on norepinephrine at 0.08. 03/03 Patient remains on ventilator with FiO2 of 40%. White blood cell count 13.6, hemoglobin 12.6, platelets 104, bicarb 20, creatinine 4.98, BUN 64, AST 7200, ALP 5100, albumin 2.7, C. diff negative. She had been weaned off the dopamine however did have some bradycardia with heart rates in the 40s yesterday and therefore was placed back on dopamine drip at 3. Her norepinephrine has been discontinued and she is on vasopressin. REVIEW OF SYSTEMS Unable to supply review of systems secondary to being intubated. PHYSICAL EXAMINATION Vital signs reviewed. CONSTITUTIONAL: No apparent distress, ill appearing, intubated and sedated HEENT: Head is normocephalic. Pupils are equal, round. Sclerae anicteric. Mucous membranes of the mouth are moist. No JVD. No carotid bruit. CHEST EXAMINATION: Lungs are coarse bilaterally with rhonchi HEART EXAMINATION: Regular rate and rhythm. S1, S2 heard. No murmurs, gallops or rub. ABDOMEN: Soft, nontender. Positive bowel sounds. EXTREMITIES: 2+ peripheral pulses, no lower extremity edema and no calf tenderness. NEUROLOGIC EXAMINATION: Patient is awake, alert and oriented x3. ASSESSMENT 1. Acute respiratory failure likely related to aspiration in the 90s versus pneumonia 2. Status post hand surgery 3. Paroxysmal A. fib, currently normal sinus rhythm 4. Temporary bradycardia, likely related to hypoxia and medications with intubation, remains on dopamine drip 5. Acute kidney injury 6. Hypotension, shock, likely related to surgery, sepsis 7. Elevated proBNP likely related to acute kidney injury, echocardiogram with normal diastolic function, normal left ventricular function and does not appear overloaded 8. Elevated troponin, suspect type II mechanism with normal left ventricular ejection fraction 9. Acute liver injury PLAN We had attempted to discontinue the dopamine. However did have some bradycardia with heart rates down in the 40s, likely exacerbated by sedation. We will continue with supportive care with dopamine drip for now. Continue with IV fluids, bicarb drip per nephrology. Continue to monitor kidney function and liver function. Prognosis guarded. Objective - Vital Signs Vital signs: Vital Signs Temp 97.4 F L 03/03/21 08:00 Pulse 68 03/03/21 08:15 Resp 20 03/03/21 08:15 BP 106/54 03/03/21 08:00 Pulse Ox 98 03/03/21 08:15 Intake & Output 03/02/21 03/03/21 03/03/21 18:59 06:59 18:59 Intake Total 2151.141 1957.365 338.6 Output Total 30 10 0 Balance 2121.141 1947.365 338.6 Weight 75.4 kg 79.8 kg Intake: IV 478 276 46 Sodium Chloride 0.9% 1, 260 000 ml @ 130 mls/hr IV . Q7H42M [facility] Rx#:[id number] juarez ns flush 18 36 6 ns 200 240 40 Intake, IV Titration 7730.469 2458.365 204.6 Amount DOPamine DRIP 800 mg In 8.718 Dextrose/Water 1 250ml. bag @ 10 MCG/KG/MIN 14. 138 mls/hr IV .[id number] [facility] Rx#:[id number] Dextrose 5% in Water 1, 1000 1200 200 000 ml @ 100 mls/hr IV . [id number] [facility] with Sodium Bicarb (1 Meq/ml) 150 ml Rx#:[id number] Heparin Sod,Pork in 0.45% 199.278 NaCl 25,000 unit In 0.45 % NaCl 1 250ml.bag @ 12 UNITS/KG/HR 8.709 mls/hr IV .Q24H [facility] Rx#: [id number] Norepinephrine 8 mg In 90.207 8.447 Sodium Chloride 0.9% 250 ml @ 0.05 MCG/KG/MIN 7. 022 mls/hr IV .Q24H [facility] Rx#:[id number] Piperacillin-Tazobactam 3 100 .375 gm In Sodium Chloride 0.9% 100 ml @ 25 mls/hr IVPB Q12H [facility] Rx# :[id number] Sodium Chloride 0.9% 150 36.8 55.2 4.6 ml @ 0.03 UNITS/MIN 4.59 mls/hr IV .Q24H [facility] with Vasopressin 60 unit Rx#: [id number] propofoL 1,000 mg In 166.856 100 Empty Bag 1 bag @ Titrate IV .Q0M [facility] Rx#: [id number] Tube Feeding 50 219 58 Other 30 90 30 Output: Urine 30 10 0 Other: Voiding Method Indwelling Catheter Indwelling Catheter # Bowel Movements 1 ABP, PAP, CO, CI - Last Documented Arterial Blood Pressure 108/53 - Labs CBC & Chem 7: 03/03/21 02:33 03/03/21 02:33 Labs: Abnormal Lab Results - Last 24 Hours (Table) 03/02/21 03/02/21 03/02/21 Range/Units 06:42 10:40 14:30 WBC (3.8-10.6) k/uL Plt Count (150-450) k/uL Neutrophils # (1.3-7.7) k/uL Lymphocytes # (1.0-4.8) k/uL APTT (22.0-30.0) sec ABG O2 Saturation (94-97) % Chloride (98-107) mmol/L Carbon Dioxide (22-30) mmol/L BUN (7-17) mg/dL Creatinine (0.52-1.04) mg/dL Glucose (74-99) mg/dL Calcium (8.4-10.2) mg/dL AST 37363 H (14-36) U/L ALT 8490 H (4-34) U/L Total Protein (6.3-8.2) g/dL Albumin (3.5-5.0) g/dL Procalcitonin 3.25 H (0.02-0.09) ng/mL Stool Occult Blood Positive H (Negative) 03/02/21 03/02/21 03/03/21 Range/Units 15:45 18:49 02:33 WBC 13.6 H (3.8-10.6) k/uL Plt Count 104 L D (150-450) k/uL Neutrophils # 12.4 H (1.3-7.7) k/uL Lymphocytes # 0.9 L (1.0-4.8) k/uL APTT 65.3 H (22.0-30.0) sec ABG O2 Saturation (94-97) % Chloride 109 H (98-107) mmol/L Carbon Dioxide 18 L (22-30) mmol/L BUN 60 H (7-17) mg/dL Creatinine 4.74 H (0.52-1.04) mg/dL Glucose 202 H (74-99) mg/dL Calcium 7.0 L (8.4-10.2) mg/dL AST (14-36) U/L ALT (4-34) U/L Total Protein (6.3-8.2) g/dL Albumin (3.5-5.0) g/dL Procalcitonin (0.02-0.09) ng/mL Stool Occult Blood (Negative) 03/03/21 03/03/21 Range/Units 02:33 05:25 WBC (3.8-10.6) k/uL Plt Count (150-450) k/uL Neutrophils # (1.3-7.7) k/uL Lymphocytes # (1.0-4.8) k/uL APTT (22.0-30.0) sec ABG O2 Saturation 98.0 H (94-97) % Chloride (98-107) mmol/L Carbon Dioxide 20 L (22-30) mmol/L BUN 64 H (7-17) mg/dL Creatinine 4.98 H (0.52-1.04) mg/dL Glucose 189 H (74-99) mg/dL Calcium 6.9 L (8.4-10.2) mg/dL AST 7201 H (14-36) U/L ALT 5173 H (4-34) U/L Total Protein 5.0 L (6.3-8.2) g/dL Albumin 2.7 L (3.5-5.0) g/dL Procalcitonin (0.02-0.09) ng/mL Stool Occult Blood (Negative) Microbiology - Last 24 Hours (Table) 03/01/21 12:20 Blood Culture - Preliminary Blood No Growth after 24 hours 03/01/21 12:10 Blood Culture - Preliminary Blood No Growth after 24 hours 03/01/21 16:58 Gram Stain - Preliminary Sputum Sputum Culture - Preliminary
[2021-03-03] MEDS: SODIUM CHLORIDE 0.9% 150 ML with VASOPRESSIN 60 UNIT IV SCH ×2 (10:13)
[2021-03-03] MEDS ORDERED: INSULIN ASPART (NovoLOG) 100 UNIT/ML VIAL SQ SCH (10:15)
--- NOTE | 2021-03-03 10:34 | P.HPIM ---
History of Present Illness H&P Date: 03/02/21 Rachel Chau, is an 86 year old female who presented to [facility] emergency room due to poor responsiveness. Patient was found at home by her daughter and responsive, apparently she also had vomited and may have aspirated, she was brought into emergency room and was found to be hypotensive and an responsive, she was intubated started on mechanical ventilation and was started on IV antibiotics and admitted to intensive care unit. Patient had a thumb surgery on the day prior to admission. Laboratory data reveals a white blood count of 26.9 hemoglobin 13.2 platelet count 271 INR 1.7 lactic acid 2.5 BUN 43 creatinine 2.9 to troponin level I.13 TSH 0.414 Testing in the emergency room revealed chest x-ray done in the emergency room revealed diffuse increased lung markings bilaterally, EKG done in the emergency room revealed junctional rhythm, repeat EKG revealed normal sinus rhythm with nonspecific ST abnormality, computed tomography scan of the brain revealed age-related atrophy no evidence of intracranial bleeding, computed tomography scan of the cervical spine did not reveal any evidence of acute fracture. Past Medical History Past Medical History: Atrial Fibrillation, Asthma, Chest Pain / Angina, Hearing Disorder / Deafness, Thyroid Disorder Additional Past Medical History / Comment(s): gout, History of Any Multi-Drug Resistant Organisms: None Reported Past Surgical History: Adenoidectomy, Appendectomy, Joint Replacement, Tonsillectomy Additional Past Surgical History / Comment(s): bilateral knee and ankle repla cement, breast augmentation, thumb surgery Past Anesthesia/Blood Transfusion Reactions: Postoperative Nausea & Vomiting (PONV) Past Psychological History: No Psychological Hx Reported Smoking Status: Never smoker Past Alcohol Use History: None Reported Past Drug Use History: None Reported - Past Family History Mother Family Medical History: Cancer, Congestive Heart Failure (CHF) Additional Family Medical History / Comment(s): father cancer Medications and Allergies Home Medications Medication Instructions Recorded Confirmed Type Albuterol Sulfate [Proair Hfa] 1 - 2 puff INHALATION RT-Q6H PRN 06/13/16 03/01/21 History Budesonide/Formoterol Fumarate 2 puff INHALATION RT-BID 06/13/16 03/01/21 History [Symbicort 160-4.5 Mcg Inhaler] Levothyroxine Sodium [Synthroid] 125 mcg PO DAILY 06/13/16 03/01/21 History Montelukast [Singulair] 10 mg PO HS 06/13/16 03/01/21 History Omeprazole [PriLOSEC] 20 mg PO BID 06/13/16 03/01/21 History Potassium Chloride [Klor-Con 10] 10 meq PO DAILY 06/13/16 03/01/21 History Sotalol [Betapace] 80 mg PO BID 06/13/16 03/01/21 History Triamterene-Hctz 37.5-25Mg 1 cap PO DAILY 06/13/16 03/01/21 History [Dyazide 37.5-25 Capsule] Warfarin Sodium [Coumadin] 2 mg PO DIRECTED 10/02/18 03/01/21 History Warfarin Sodium [Coumadin] 4 mg PO DIRECTED 10/02/18 03/01/21 History Brimonidine Tartrate [Alphagan P 1 drops RIGHT EYE BID 03/01/21 03/01/21 History 0.2% Ophth Soln] Celecoxib [CeleBREX] 200 mg PO DAILY 03/01/21 03/01/21 History Gabapentin [Neurontin] 300 mg PO DAILY 03/01/21 03/01/21 History HYDROcodone/APAP 7.5-325MG [Hatch 1 tab PO Q6H PRN 03/01/21 03/01/21 History 7.5-325] Latanoprost/Pf [Latanoprost 0.005% 1 drop RIGHT EYE HS 03/01/21 03/01/21 History Eye Drop] Triamcinolone 0.1% Cream [Kenalog 1 applicatio TOPICAL BID 03/01/21 03/01/21 History 0.1% Cream] ondansetron HCL [Zofran] 8 mg PO Q8HR PRN 03/01/21 03/01/21 History Allergies Allergy/AdvReac Type Severity Reaction Status Date / Time bee venom protein (honey bee) Allergy Anaphylaxis Verified 03/01/21 12:44 Physical Exam Vitals: Vital Signs Temp Pulse Resp BP Pulse Ox 03/02/21 08:30 66 20 96/57 99 03/02/21 08:15 66 20 100/52 99 03/02/21 08:00 99.4 F 67 20 96/53 99 03/02/21 07:45 67 20 91/54 98 03/02/21 07:44 64 03/02/21 07:36 66 03/02/21 07:30 67 20 94/52 98 03/02/21 07:15 67 20 99/48 98 03/02/21 07:00 66 20 119/58 99 03/02/21 06:45 66 20 130/67 99 03/02/21 06:30 67 20 121/62 98 03/02/21 06:15 66 20 117/61 98 03/02/21 06:00 65 20 113/61 98 03/02/21 05:45 66 20 113/58 98 03/02/21 05:30 66 20 120/60 97 03/02/21 05:16 66 21 115/60 97 03/02/21 04:45 70 20 117/58 97 03/02/21 04:30 68 21 116/60 98 03/02/21 04:15 69 20 122/63 99 03/02/21 04:06 68 03/02/21 04:00 99.3 F 74 20 106/57 100 03/02/21 03:56 76 03/02/21 03:45 72 20 112/58 98 03/02/21 03:30 74 20 112/50 98 03/02/21 03:15 79 20 121/56 97 03/02/21 03:00 78 20 115/52 97 03/02/21 02:45 71 20 114/55 98 03/02/21 02:30 70 20 111/55 98 03/02/21 02:15 70 20 108/55 98 03/02/21 02:00 70 20 115/56 98 03/02/21 01:45 70 20 113/55 98 03/02/21 01:30 69 20 113/55 98 03/02/21 01:15 70 20 114/52 97 03/02/21 01:00 68 20 106/53 97 03/02/21 00:45 69 20 109/55 97 03/02/21 00:30 69 20 118/58 98 03/02/21 00:19 72 08 00:15 68 20 114/55 99 03/02/21 00:09 71 03/02/21 00:00 98.4 F 72 20 111/54 99 03/01/21 23:45 67 20 109/56 99 03/01/21 23:30 68 20 112/55 99 03/01/21 23:15 67 20 107/57 99 03/01/21 23:00 70 20 108/56 99 03/01/21 22:45 72 20 82/34 99 03/01/21 22:39 73 20 82/34 99 03/01/21 22:30 75 20 108/52 99 03/01/21 22:15 70 20 108/49 99 03/01/21 22:00 70 20 102/47 99 03/01/21 21:45 70 20 119/57 98 03/01/21 21:30 75 20 94/45 98 03/01/21 21:15 72 20 83/44 98 03/01/21 21:00 72 20 105/50 98 03/01/21 20:45 74 20 105/53 98 03/01/21 20:30 72 20 99/53 98 03/01/21 20:25 73 03/01/21 20:19 68 03/01/21 20:15 69 20 102/55 99 03/01/21 20:00 98.6 F 71 20 104/53 99 03/01/21 19:45 71 97/55 99 03/01/21 19:30 71 94/51 99 03/01/21 19:15 70 20 90/45 99 03/01/21 19:00 69 20 72/42 98 03/01/21 18:45 69 20 83/47 98 03/01/21 18:30 70 20 72/42 98 03/01/21 18:15 71 20 76/38 98 03/01/21 18:00 71 22 90/39 98 03/01/21 17:45 75 20 86/44 98 03/01/21 17:30 77 20 88/47 98 03/01/21 17:15 81 20 110/54 99 03/01/21 17:00 100.4 F H 88 20 113/57 98 03/01/21 16:00 97.5 F L 78 20 135/64 98 03/01/21 15:00 78 20 150/62 100 03/01/21 14:00 70 20 110/37 99 03/01/21 13:30 70 20 108/44 99 03/01/21 13:15 72 20 118/51 100 03/01/21 13:05 81 20 119/62 100 03/01/21 12:40 72 14 87/36 98 03/01/21 12:25 70 14 78/40 97 03/01/21 12:21 70 14 78/44 98 03/01/21 12:05 74 14 89/45 98 03/01/21 11:26 45 L 16 69/46 88 L Intake and Output 03/01/21 03/02/21 03/02/21 22:59 06:59 14:59 Intake Total 2351.300 1355.278 260 Output Total 90 50 0 Balance 2261.300 1305.278 260 Intake: IV 2019 1040 260 Sodium Chloride 0.9% 2019 1040 260 000 ml @ 130 mls/hr IV . Q7H42M [facility] Rx#:[id number] Intake, IV Titration 331.300 315.278 Amount DOPamine DRIP 800 mg In 118.730 47.855 Dextrose/Water 1 250ml. bag @ 10 MCG/KG/MIN 13. 608 mls/hr IV .[id number] [facility] Rx#:[id number] Heparin Sod,Pork in 0.45% 46.158 NaCl 25,000 unit In 0.45 % NaCl 1 250ml.bag @ 12 UNITS/KG/HR 8.709 mls/hr IV .Q24H [facility] Rx#: [id number] Norepinephrine 32 mg In 19.369 Sodium Chloride 0.9% 218 ml @ 0.05 MCG/KG/MIN 1. 701 mls/hr IV .Q24H [facility] Rx#:[id number] Norepinephrine 8 mg In 55.237 198.221 Sodium Chloride 0.9% 250 ml @ 0.05 MCG/KG/MIN 7. 022 mls/hr IV .Q24H [facility] Rx#:[id number] propofoL 1,000 mg In 91.806 69.202 Empty Bag 1 bag @ Titrate IV .Q0M [facility] Rx#: [id number] Output: Urine 90 50 0 Other: Voiding Method Indwelling Catheter Indwelling Catheter Weight 72.575 kg 75.4 kg In general patient is intubated sedated maintained on mechanical ventilation HEENT head normocephalic and atraumatic Neck is supple no JVD no goiter no lymphadenopathy no carotid bruit Chest examination reveals a scattered crackles bilaterally no wheezing Cardiac exam reveals regular heart sounds S1 and S2 no gallops no murmurs Abdomen is soft nontender no organomegaly with normal bowel sounds Extremity exam reveals no edema no cyanosis or clubbing Neurological examination reveals no gross focal deficits Results CBC & Chem 7: 03/02/21 03:51 03/02/21 03:51 Labs: Abnormal Lab Results - Last 24 Hours (Table) 03/01/21 03/01/21 03/01/21 Range/Units 12:05 12:05 12:05 WBC 15.9 H (3.8-10.6) k/uL MCV 101.5 H (80.0-100.0) fL Neutrophils # 11.9 H (1.3-7.7) k/uL Neutrophils # (Manual) (1.3-7.7) k/uL PT 17.1 H (9.0-12.0) sec INR 1.7 H (<1.2) APTT (22.0-30.0) sec ABG pH (7.35-7.45) ABG pCO2 (35-45) mmHg ABG pO2 (83-108) mmHg ABG HCO3 (21-25) mmol/L ABG O2 Saturation (94-97) % Potassium (3.5-5.1) mmol/L Chloride (98-107) mmol/L Carbon Dioxide (22-30) mmol/L BUN (7-17) mg/dL Creatinine (0.52-1.04) mg/dL Glucose (74-99) mg/dL POC Glucose (mg/dL) (75-99) mg/dL Plasma Lactic Acid Duran (0.7-2.0) mmol/L Calcium (8.4-10.2) mg/dL AST (14-36) U/L ALT (4-34) U/L Troponin I (0.000-0.034) ng/mL Total Protein (6.3-8.2) g/dL Albumin (3.5-5.0) g/dL TSH (0.465-4.680) mIU/L Free T4 (0.78-2.19) ng/dL Urine Appearance Cloudy H (Clear) Urine Protein 1+ H (Negative) Urine Ketones 1+ H (Negative) Urine Bacteria Rare H (None) /hpf Hyaline Casts 19 H (0-2) /lpf Urine Mucus Rare H (None) /hpf Urine Opiates Screen Detected H (NotDetected) 03/01/21 03/01/21 03/01/21 Range/Units 12:05 12:05 12:05 WBC (3.8-10.6) k/uL MCV (80.0-100.0) fL Neutrophils # (1.3-7.7) k/uL Neutrophils # (Manual) (1.3-7.7) k/uL PT (9.0-12.0) sec INR (<1.2) APTT (22.0-30.0) sec ABG pH (7.35-7.45) ABG pCO2 (35-45) mmHg ABG pO2 (83-108) mmHg ABG HCO3 (21-25) mmol/L ABG O2 Saturation (94-97) % Potassium 5.8 H (3.5-5.1) mmol/L Chloride (98-107) mmol/L Carbon Dioxide (22-30) mmol/L BUN 37 H (7-17) mg/dL Creatinine 2.62 H (0.52-1.04) mg/dL Glucose 145 H (74-99) mg/dL POC Glucose (mg/dL) (75-99) mg/dL Plasma Lactic Acid Duran 6.5 H* (0.7-2.0) mmol/L Calcium (8.4-10.2) mg/dL AST 2369 H (14-36) U/L ALT 1963 H (4-34) U/L Troponin I 0.576 H* (0.000-0.034) ng/mL Total Protein (6.3-8.2) g/dL Albumin (3.5-5.0) g/dL TSH (0.465-4.680) mIU/L Free T4 (0.78-2.19) ng/dL Urine Appearance (Clear) Urine Protein (Negative) Urine Ketones (Negative) Urine Bacteria (None) /hpf Hyaline Casts (0-2) /lpf Urine Mucus (None) /hpf Urine Opiates Screen (NotDetected) 03/01/21 03/01/21 03/01/21 Range/Units 12:32 14:45 14:50 WBC (3.8-10.6) k/uL MCV (80.0-100.0) fL Neutrophils # (1.3-7.7) k/uL Neutrophils # (Manual) (1.3-7.7) k/uL PT (9.0-12.0) sec INR (<1.2) APTT (22.0-30.0) sec ABG pH 7.20 L (7.35-7.45) ABG pCO2 57 H (35-45) mmHg ABG pO2 256 H (83-108) mmHg ABG HCO3 (21-25) mmol/L ABG O2 Saturation 99.7 H (94-97) % Potassium (3.5-5.1) mmol/L Chloride (98-107) mmol/L Carbon Dioxide (22-30) mmol/L BUN (7-17) mg/dL Creatinine (0.52-1.04) mg/dL Glucose (74-99) mg/dL POC Glucose (mg/dL) (75-99) mg/dL Plasma Lactic Acid Duran 2.9 H* (0.7-2.0) mmol/L Calcium (8.4-10.2) mg/dL AST (14-36) U/L ALT (4-34) U/L Troponin I (0.000-0.034) ng/mL Total Protein (6.3-8.2) g/dL Albumin (3.5-5.0) g/dL TSH 0.414 L (0.465-4.680) mIU/L Free T4 2.55 H (0.78-2.19) ng/dL Urine Appearance (Clear) Urine Protein (Negative) Urine Ketones (Negative) Urine Bacteria (None) /hpf Hyaline Casts (0-2) /lpf Urine Mucus (None) /hpf Urine Opiates Screen (NotDetected) 03/01/21 03/01/21 03/01/21 Range/Units 15:00 16:42 18:10 WBC (3.8-10.6) k/uL MCV (80.0-100.0) fL Neutrophils # (1.3-7.7) k/uL Neutrophils # (Manual) (1.3-7.7) k/uL PT (9.0-12.0) sec INR (<1.2) APTT (22.0-30.0) sec ABG pH (7.35-7.45) ABG pCO2 (35-45) mmHg ABG pO2 (83-108) mmHg ABG HCO3 (21-25) mmol/L ABG O2 Saturation (94-97) % Potassium (3.5-5.1) mmol/L Chloride (98-107) mmol/L Carbon Dioxide (22-30) mmol/L BUN (7-17) mg/dL Creatinine (0.52-1.04) mg/dL Glucose (74-99) mg/dL POC Glucose (mg/dL) 155 H (75-99) mg/dL Plasma Lactic Acid Duran (0.7-2.0) mmol/L Calcium (8.4-10.2) mg/dL AST (14-36) U/L ALT (4-34) U/L Troponin I 0.679 H* 1.130 H* (0.000-0.034) ng/mL Total Protein (6.3-8.2) g/dL Albumin (3.5-5.0) g/dL TSH (0.465-4.680) mIU/L Free T4 (0.78-2.19) ng/dL Urine Appearance (Clear) Urine Protein (Negative) Urine Ketones (Negative) Urine Bacteria (None) /hpf Hyaline Casts (0-2) /lpf Urine Mucus (None) /hpf Urine Opiates Screen (NotDetected) 03/01/21 03/01/21 03/01/21 Range/Units 18:10 18:10 18:10 WBC 26.9 H (3.8-10.6) k/uL MCV (80.0-100.0) fL Neutrophils # (1.3-7.7) k/uL Neutrophils # (Manual) 22.00 H (1.3-7.7) k/uL PT (9.0-12.0) sec INR (<1.2) APTT (22.0-30.0) sec ABG pH (7.35-7.45) ABG pCO2 (35-45) mmHg ABG pO2 (83-108) mmHg ABG HCO3 (21-25) mmol/L ABG O2 Saturation (94-97) % Potassium (3.5-5.1) mmol/L Chloride (98-107) mmol/L Carbon Dioxide 21 L (22-30) mmol/L BUN 43 H (7-17) mg/dL Creatinine 2.92 H (0.52-1.04) mg/dL Glucose 147 H (74-99) mg/dL POC Glucose (mg/dL) (75-99) mg/dL Plasma Lactic Acid Duran 2.8 H* (0.7-2.0) mmol/L Calcium 8.3 L (8.4-10.2) mg/dL AST 43105 H (14-36) U/L ALT 8885 H (4-34) U/L Troponin I (0.000-0.034) ng/mL Total Protein 6.1 L (6.3-8.2) g/dL Albumin (3.5-5.0) g/dL TSH (0.465-4.680) mIU/L Free T4 (0.78-2.19) ng/dL Urine Appearance (Clear) Urine Protein (Negative) Urine Ketones (Negative) Urine Bacteria (None) /hpf Hyaline Casts (0-2) /lpf Urine Mucus (None) /hpf Urine Opiates Screen (NotDetected) 03/01/21 03/02/21 03/02/21 Range/Units 21:45 03:51 03:51 WBC 22.7 H (3.8-10.6) k/uL MCV 101.2 H (80.0-100.0) fL Neutrophils # 19.5 H (1.3-7.7) k/uL Neutrophils # (Manual) (1.3-7.7) k/uL PT (9.0-12.0) sec INR (<1.2) APTT (22.0-30.0) sec ABG pH (7.35-7.45) ABG pCO2 (35-45) mmHg ABG pO2 (83-108) mmHg ABG HCO3 (21-25) mmol/L ABG O2 Saturation (94-97) % Potassium (3.5-5.1) mmol/L Chloride 113 H (98-107) mmol/L Carbon Dioxide 16 L (22-30) mmol/L BUN 48 H (7-17) mg/dL Creatinine 3.53 H (0.52-1.04) mg/dL Glucose 132 H (74-99) mg/dL POC Glucose (mg/dL) (75-99) mg/dL Plasma Lactic Acid Duran 2.5 H* (0.7-2.0) mmol/L Calcium 7.7 L (8.4-10.2) mg/dL AST (14-36) U/L ALT (4-34) U/L Troponin I (0.000-0.034) ng/mL Total Protein 5.8 L (6.3-8.2) g/dL Albumin 3.1 L (3.5-5.0) g/dL TSH (0.465-4.680) mIU/L Free T4 (0.78-2.19) ng/dL Urine Appearance (Clear) Urine Protein (Negative) Urine Ketones (Negative) Urine Bacteria (None) /hpf Hyaline Casts (0-2) /lpf Urine Mucus (None) /hpf Urine Opiates Screen (NotDetected) 03/02/21 03/02/21 03/02/21 Range/Units 03:51 03:51 05:14 WBC (3.8-10.6) k/uL MCV (80.0-100.0) fL Neutrophils # (1.3-7.7) k/uL Neutrophils # (Manual) (1.3-7.7) k/uL PT 22.4 H (9.0-12.0) sec INR 2.3 H (<1.2) APTT 62.4 H (22.0-30.0) sec ABG pH 7.27 L (7.35-7.45) ABG pCO2 (35-45) mmHg ABG pO2 (83-108) mmHg ABG HCO3 19 L (21-25) mmol/L ABG O2 Saturation (94-97) % Potassium (3.5-5.1) mmol/L Chloride (98-107) mmol/L Carbon Dioxide (22-30) mmol/L BUN (7-17) mg/dL Creatinine (0.52-1.04) mg/dL Glucose (74-99) mg/dL POC Glucose (mg/dL) (75-99) mg/dL Plasma Lactic Acid Duran (0.7-2.0) mmol/L Calcium (8.4-10.2) mg/dL AST (14-36) U/L ALT (4-34) U/L Troponin I (0.000-0.034) ng/mL Total Protein (6.3-8.2) g/dL Albumin (3.5-5.0) g/dL TSH (0.465-4.680) mIU/L Free T4 (0.78-2.19) ng/dL Urine Appearance (Clear) Urine Protein (Negative) Urine Ketones (Negative) Urine Bacteria (None) /hpf Hyaline Casts (0-2) /lpf Urine Mucus (None) /hpf Urine Opiates Screen (NotDetected) 03/02/21 Range/Units 06:42 WBC (3.8-10.6) k/uL MCV (80.0-100.0) fL Neutrophils # (1.3-7.7) k/uL Neutrophils # (Manual) (1.3-7.7) k/uL PT (9.0-12.0) sec INR (<1.2) APTT 67.4 H (22.0-30.0) sec ABG pH (7.35-7.45) ABG pCO2 (35-45) mmHg ABG pO2 (83-108) mmHg ABG HCO3 (21-25) mmol/L ABG O2 Saturation (94-97) % Potassium (3.5-5.1) mmol/L Chloride (98-107) mmol/L Carbon Dioxide (22-30) mmol/L BUN (7-17) mg/dL Creatinine (0.52-1.04) mg/dL Glucose (74-99) mg/dL POC Glucose (mg/dL) (75-99) mg/dL Plasma Lactic Acid Duran (0.7-2.0) mmol/L Calcium (8.4-10.2) mg/dL AST (14-36) U/L ALT (4-34) U/L Troponin I (0.000-0.034) ng/mL Total Protein (6.3-8.2) g/dL Albumin (3.5-5.0) g/dL TSH (0.465-4.680) mIU/L Free T4 (0.78-2.19) ng/dL Urine Appearance (Clear) Urine Protein (Negative) Urine Ketones (Negative) Urine Bacteria (None) /hpf Hyaline Casts (0-2) /lpf Urine Mucus (None) /hpf Urine Opiates Screen (NotDetected) Microbiology - Last 24 Hours (Table) 03/01/21 16:58 Sputum Culture - Preliminary Sputum Thrombosis Risk Factor Assmnt - Choose All That Apply Each Factor Represents 1 point: History of prior major surgery (<1month) Each Risk Factor Represents 3 Points: Age 75 years or older Thrombosis Risk Factor Assessment Total Risk Factor Score: 4 Thrombosis Risk Factor Assessment Level: Moderate Risk Assessment and Plan Plan: 1. Acute shock, initial cause not entirely clear, could be related to aspiration pneumonia 2. Acute kidney injury, related to hypotension 3. Acute metabolic acidosis 4. Bilateral lungs opacities likely related to aspiration pneumonia 5. Paroxysmal atrial fibrillation 6. elevated troponin levels 7. Underlying history of hypertention 8. Underlying history of hypothyroidism 9. Underlying history of gout 10. Underlying history of diverticulosis 11. Underlying history of asthma 12. Elevated liver enzymes likely related to shock liver At this time patient is intubated sedated maintained on mechanical ventilation She is maintained on IV antibiotics, and IV heparin Pulmonary critical care , nephrology and cardiology consultation following Will follow closely
--- NOTE | 2021-03-03 10:44 | P.PN ---
Subjective Progress Note Date: 03/03/21 Rachel Chau, is an 86 year old female who presented to [facility] emergency room due to poor responsiveness. Patient was found at home by her daughter and responsive, apparently she also had vomited and may have aspirated, she was brought into emergency room and was found to be hypotensive and an responsive, she was intubated started on mechanical ventilation and was started on IV antibiotics and admitted to intensive care unit. Patient had a thumb surgery on the day prior to admission. Laboratory data reveals a white blood count of 26.9 hemoglobin 13.2 platelet count 271 INR 1.7 lactic acid 2.5 BUN 43 creatinine 2.9 to troponin level I.13 TSH 0.414 Testing in the emergency room revealed chest x-ray done in the emergency room revealed diffuse increased lung markings bilaterally, EKG done in the emergency room revealed junctional rhythm, repeat EKG revealed normal sinus rhythm with nonspecific ST abnormality, computed tomography scan of the brain revealed age- related atrophy no evidence of intracranial bleeding, computed tomography scan of the cervical spine did not reveal any evidence of acute fracture. On 03/03/2021 patient remains in the intensive care unit mechanically ventilated and on sedation. Per nursing staff patient has shown some improvement with decr easing amounts of vasopressors. Per nursing staff awaiting family arrival before sedation holiday today. Patient remains on dopamine, sodium bicarb and Levophed drips. FiO2 of 40%. Patient remains on IV Zosyn. Critical care, nephrology and cardiology services are following. Repeat labs ordered for a.m. Objective - Vital Signs Vital signs: Vital Signs Temp 97.4 F L 03/03/21 08:00 Pulse 65 03/03/21 10:00 Resp 20 03/03/21 10:00 BP 90/44 03/03/21 10:00 Pulse Ox 98 03/03/21 10:00 Intake & Output 03/02/21 03/03/21 03/03/21 18:59 06:59 18:59 Intake Total 2150.141 1956.365 702.934 Output Total 30 10 15 Balance 2120.141 1946.365 687.934 Weight 75.4 kg 79.8 kg Intake: IV 478 276 92 Sodium Chloride 0.9% 1, 260 000 ml @ 130 mls/hr IV . Q7H42M [facility] Rx#:[id number] juarez ns flush 18 36 12 ns 200 240 80 Intake, IV Titration 4932.734 6459.365 405.934 Amount DOPamine DRIP 800 mg In 8.718 Dextrose/Water 1 250ml. bag @ 10 MCG/KG/MIN 14. 138 mls/hr IV .[id number] [facility] Rx#:[id number] Dextrose 5% in Water 1, 1000 1200 400 000 ml @ 100 mls/hr IV . [id number] [facility] with Sodium Bicarb (1 Meq/ml) 150 ml Rx#:[id number] Heparin Sod,Pork in 0.45% 199.278 NaCl 25,000 unit In 0.45 % NaCl 1 250ml.bag @ 12 UNITS/KG/HR 8.709 mls/hr IV .Q24H [facility] Rx#: [id number] Norepinephrine 8 mg In 90.207 8.447 1.334 Sodium Chloride 0.9% 250 ml @ 0.05 MCG/KG/MIN 7. 022 mls/hr IV .Q24H [facility] Rx#:[id number] Piperacillin-Tazobactam 3 100 .375 gm In Sodium Chloride 0.9% 100 ml @ 25 mls/hr IVPB Q12H [facility] Rx# :[id number] Sodium Chloride 0.9% 150 36.8 55.2 4.6 ml @ 0.03 UNITS/MIN 4.59 mls/hr IV .Q24H [facility] with Vasopressin 60 unit Rx#: [id number] propofoL 1,000 mg In 166.856 100 Empty Bag 1 bag @ Titrate IV .Q0M [facility] Rx#: [id number] Tube Feeding 50 219 145 Other 30 90 60 Output: Urine 30 10 15 Other: Voiding Method Indwelling Catheter Indwelling Catheter Indwelling Catheter # Bowel Movements 1 ABP, PAP, CO, CI - Last Documented Arterial Blood Pressure 70/36 - Exam In general patient is intubated sedated maintained on mechanical ventilation HEENT head normocephalic and atraumatic Neck is supple no JVD no goiter no lymphadenopathy no carotid bruit Chest examination reveals a scattered crackles bilaterally no wheezing Cardiac exam reveals regular heart sounds S1 and S2 no gallops no murmurs Abdomen is soft nontender no organomegaly with normal bowel sounds Extremity exam reveals no edema no cyanosis or clubbing Neurological examination reveals no gross focal deficits - Labs CBC & Chem 7: 08/15/21 02:33 03/03/21 02:33 Labs: Abnormal Lab Results - Last 24 Hours (Table) 03/02/21 03/02/21 03/02/21 Range/Units 06:42 10:40 14:30 WBC (3.8-10.6) k/uL Plt Count (150-450) k/uL Neutrophils # (1.3-7.7) k/uL Lymphocytes # (1.0-4.8) k/uL APTT (22.0-30.0) sec ABG O2 Saturation (94-97) % Chloride (98-107) mmol/L Carbon Dioxide (22-30) mmol/L BUN (7-17) mg/dL Creatinine (0.52-1.04) mg/dL Glucose (74-99) mg/dL Plasma Lactic Acid Duran (0.7-2.0) mmol/L Calcium (8.4-10.2) mg/dL Phosphorus (2.5-4.5) mg/dL AST 63234 H (14-36) U/L ALT (4-34) U/L Total Protein (6.3-8.2) g/dL Albumin (3.5-5.0) g/dL Procalcitonin 3.25 H (0.02-0.09) ng/mL Stool Occult Blood Positive H (Negative) 03/02/21 03/02/21 03/03/21 Range/Units 15:45 18:49 02:33 WBC 13.6 H (3.8-10.6) k/uL Plt Count 104 L D (150-450) k/uL Neutrophils # 12.4 H (1.3-7.7) k/uL Lymphocytes # 0.9 L (1.0-4.8) k/uL APTT 65.3 H (22.0-30.0) sec ABG O2 Saturation (94-97) % Chloride 109 H (98-107) mmol/L Carbon Dioxide 18 L (22-30) mmol/L BUN 60 H (7-17) mg/dL Creatinine 4.74 H (0.52-1.04) mg/dL Glucose 202 H (74-99) mg/dL Plasma Lactic Acid Duran (0.7-2.0) mmol/L Calcium 7.0 L (8.4-10.2) mg/dL Phosphorus (2.5-4.5) mg/dL AST (14-36) U/L ALT (4-34) U/L Total Protein (6.3-8.2) g/dL Albumin (3.5-5.0) g/dL Procalcitonin (0.02-0.09) ng/mL Stool Occult Blood (Negative) 03/03/21 03/03/21 03/03/21 Range/Units 02:33 02:33 05:25 WBC (3.8-10.6) k/uL Plt Count (150-450) k/uL Neutrophils # (1.3-7.7) k/uL Lymphocytes # (1.0-4.8) k/uL APTT (22.0-30.0) sec ABG O2 Saturation 98.0 H (94-97) % Chloride (98-107) mmol/L Carbon Dioxide 20 L (22-30) mmol/L BUN 64 H (7-17) mg/dL Creatinine 4.98 H (0.52-1.04) mg/dL Glucose 189 H (74-99) mg/dL Plasma Lactic Acid Duran (0.7-2.0) mmol/L Calcium 6.9 L (8.4-10.2) mg/dL Phosphorus 5.0 H (2.5-4.5) mg/dL AST 7201 H (14-36) U/L ALT 5173 H (4-34) U/L Total Protein 5.0 L (6.3-8.2) g/dL Albumin 2.7 L (3.5-5.0) g/dL Procalcitonin (0.02-0.09) ng/mL Stool Occult Blood (Negative) 03/03/21 Range/Units 09:15 WBC (3.8-10.6) k/uL Plt Count (150-450) k/uL Neutrophils # (1.3-7.7) k/uL Lymphocytes # (1.0-4.8) k/uL APTT (22.0-30.0) sec ABG O2 Saturation (94-97) % Chloride (98-107) mmol/L Carbon Dioxide (22-30) mmol/L BUN (7-17) mg/dL Creatinine (0.52-1.04) mg/dL Glucose (74-99) mg/dL Plasma Lactic Acid Duran 2.4 H* (0.7-2.0) mmol/L Calcium (8.4-10.2) mg/dL Phosphorus (2.5-4.5) mg/dL AST (14-36) U/L ALT (4-34) U/L Total Protein (6.3-8.2) g/dL Albumin (3.5-5.0) g/dL Procalcitonin (0.02-0.09) ng/mL Stool Occult Blood (Negative) Microbiology - Last 24 Hours (Table) 03/01/21 12:20 Blood Culture - Preliminary Blood No Growth after 24 hours 03/01/21 12:10 Blood Culture - Preliminary Blood No Growth after 24 hours 03/01/21 16:58 Gram Stain - Preliminary Sputum Sputum Culture - Preliminary Assessment and Plan Plan: 1. Acute shock, initial cause not entirely clear, could be related to aspiration pneumonia 2. Acute kidney injury, related to hypotension 3. Acute metabolic acidosis 4. Bilateral lungs opacities likely related to aspiration pneumonia 5. Paroxysmal atrial fibrillation 6. elevated troponin levels 7. Underlying history of hypertention 8. Underlying history of hypothyroidism 9. Underlying history of gout 10. Underlying history of diverticulosis 11. Underlying history of asthma 12. Elevated liver enzymes likely related to shock liver At this time patient is intubated sedated maintained on mechanical ventilation She is maintained on IV antibiotics, and IV heparin. remains on levophed Pulmonary critical care , nephrology and cardiology consultation following Will follow closely
--- NOTE | 2021-03-03 11:41 | P.PN ---
Subjective Progress Note Date: 03/03/21 Principal diagnosis: Respiratory failure, myocardial infarction, aspiration pneumonia, acute kidney injury. Pulmonary/critical care consultation dated 03/02/2021. 86-year-old female who typically sees Dr. Lemon as a primary. I see her for her asthma. Apparently, the patient had left thumb surgery on February 28. The patient was admitted to the hospital the following day on March 01. She was apparently found by her daughter to be unresponsive. The patient apparently als o had some emesis, and may have aspirated. EMS was called and brought her into the emergency room. There, she was seen by Dr. Abhijit Bennett. The patient was poorly responsive and the patient was intubated in the emergency department. He call me about the patient yesterday, and I accepted the patient into the intensive care unit. Because of her inability to protect her airway, and her poor respiratory status, the patient was intubated, and remains on mechanical ventilator. She is currently on the volume assist control mode, rate 20, tidal volume 400, FiO2 40%, and PEEP of 5. Arterial blood gases show a PaO2 of 93, PaCO2 41, and the pH is 7.27. This blood gases consistent with metabolic a cidosis. Currently, she is on heparin via weight based protocol, propofol at 30 mcg/kg/m, ampules of sodium bicarbonate and D5W at 100 mL an hour, saline at 20 mL an hour, and norepinephrine at 67 mcg/m. I asked the nurse to go ahead and get a cortisol level. I also asked the nurses start her on vasopressin at 0.03 units per minute. In addition, we placed a left subclavian triple lumen cathete r, and a right radial art line. Lab data currently includes a white count 22.7, hemoglobin 12.8, hematocrit 39.6, and platelet count of 223,000. PT is 22.4, INR 2.3, and PTT is 67.4. Sodium is 142, potassium 4.8, chlorides 113, CO2 16, anion gap is 13, BUN is 48, creatinine is 3.53, glucose 132. AST is 13,701 and the ALT is 8490. Troponin was 1.130. N-terminal proBNP was 17,800. Drug screen was positive for opiates. Coronavirus testing was negative. Urine is evaluated. Chest x-ray my opinion is consistent with interstitial edema, although there may be some infiltrates in the bibasilar regions of the lung. Progress note dated 03/03/2021. 86-year-old female in consultation yesterday. The patient sees Dr. Lemon as a primary. The patient apparently had left thumb surgery on February 28. Subsequent to that, on the , the patient was found unresponsive by her daughter. She also had some emesis, and may have aspirated. EMS was called and brought the patient into the emergency room, where she was intubated by Dr. Abhijit Bennett. She was poorly responsive at that time. She was transferred to the ICU. Yesterday, we placed a right radial art line, and a left subclavian triple- lumen catheter. Yesterday, she was quite hypotensive. She was on both vasopressin and norepinephrine. Both have been weaned off. She remains on the mechanical ventilator. She is on the volume assist control mode, rate of 20, tidal volume 400, FiO2 40%, and PEEP of 5. Blood gases show a PaO2 of 102, PaCO2 41, and a pH is 7.35. Currently, the vasopressin and norepinephrine have been weaned off. She is on dopamine at 3 mcg/kg/m and really for bradycardia. She also getting dextrose with 3 ampules of sodium bicarbonate at 100 mL an hour, saline at 20 mL an hour, propofol at 35 mcg/kg/m, and vital high protein at 29 mL an hour, which is goal. White count is 13.6, hemoglobin 12.6, hemat ocrit 37.3, platelet count 104,000. Sodium 138, potassium 3.5, chlorides 105, CO2 20, anion gap 13, E1 64, and creatinine 4.98. AST is 7201 and ALT is 5173. Lactic acid is 2.4. Microbiology is currently negative. Chest x-ray reveals bibasilar opacities. Cortisol level was 45. Pro-calcitonin level was 3.25. Objective - Vital Signs Vital signs: Vital Signs Temp 97.4 F L 03/03/21 08:00 Pulse 70 03/03/21 11:15 Resp 20 03/03/21 11:00 BP 116/52 03/03/21 11:00 Pulse Ox 98 03/03/21 11:00 Intake & Output 03/02/21 03/03/21 03/03/21 18:59 06:59 18:59 Intake Total 2151.141 1957.365 930.166 Output Total 30 10 15 Balance 2121.141 1947.365 915.166 Weight 75.4 kg 79.8 kg Intake: IV 478 276 115 Sodium Chloride 0.9% 1, 260 000 ml @ 130 mls/hr IV . Q7H42M [facility] Rx#:[id number] juarez ns flush 18 36 15 ns 200 240 100 Intake, IV Titration 4957.305 4564.365 581.166 Amount DOPamine DRIP 800 mg In 8.718 Dextrose/Water 1 250ml. bag @ 10 MCG/KG/MIN 14. 138 mls/hr IV .[id number] [facility] Rx#:[id number] Dextrose 5% in Water 1, 1000 1200 500 000 ml @ 100 mls/hr IV . [id number] [facility] with Sodium Bicarb (1 Meq/ml) 150 ml Rx#:[id number] Heparin Sod,Pork in 0.45% 199.278 NaCl 25,000 unit In 0.45 % NaCl 1 250ml.bag @ 12 UNITS/KG/HR 8.709 mls/hr IV .Q24H [facility] Rx#: [id number] Norepinephrine 8 mg In 90.207 8.447 2.551 Sodium Chloride 0.9% 250 ml @ 0.05 MCG/KG/MIN 7. 022 mls/hr IV .Q24H [facility] Rx#:[id number] Piperacillin-Tazobactam 3 100 .375 gm In Sodium Chloride 0.9% 100 ml @ 25 mls/hr IVPB Q12H [facility] Rx# :[id number] Sodium Chloride 0.9% 150 36.8 55.2 4.6 ml @ 0.03 UNITS/MIN 4.59 mls/hr IV .Q24H [facility] with Vasopressin 60 unit Rx#: [id number] propofoL 1,000 mg In 166.856 100 74.015 Empty Bag 1 bag @ Titrate IV .Q0M [facility] Rx#: [id number] Tube Feeding 50 219 174 Other 30 90 60 Output: Urine 30 10 15 Other: Voiding Method Indwelling Catheter Indwelling Catheter Indwelling Catheter # Bowel Movements 1 ABP, PAP, CO, CI - Last Documented Arterial Blood Pressure 107/50 - Exam No acute distress, sedated, and intubated, orally, and on the mechanical ventilator. Saturations are 98%. HEENT examination is grossly unremarkable. Neck supple. Full range of motion. No adenopathy thyromegaly or neck vein distention. Cardiovascular examination reveals regular rhythm rate. S1-S2 normal. No S3 or S4. No discernible murmur noted. Heart rate 70 bpm. Lungs reveal coarse bilateral rhonchi. No wheezes. No crackles. Breath sounds equal bilaterally but diminished throughout. A left subclavian triple-lumen catheter is noted. Abdomen soft bowel sounds are heard. No masses or tenderness. Extremities are intact. No cyanosis clubbing or edema. A right radial art line is noted. Skin is without rash or lesion. Neurologic examination cannot be adequately assessed. - Labs CBC & Chem 7: 03/03/21 02:33 03/03/21 02:33 Labs: Abnormal Lab Results - Last 24 Hours (Table) 03/02/21 03/02/21 03/02/21 Range/Units 10:40 14:30 15:45 WBC (3.8-10.6) k/uL Plt Count (150-450) k/uL Neutrophils # (1.3-7.7) k/uL Lymphocytes # (1.0-4.8) k/uL APTT 65.3 H (22.0-30.0) sec ABG O2 Saturation (94-97) % Chloride (98-107) mmol/L Carbon Dioxide (22-30) mmol/L BUN (7-17) mg/dL Creatinine (0.52-1.04) mg/dL Glucose (74-99) mg/dL Plasma Lactic Acid Duran (0.7-2.0) mmol/L Calcium (8.4-10.2) mg/dL Phosphorus (2.5-4.5) mg/dL AST (14-36) U/L ALT (4-34) U/L Total Protein (6.3-8.2) g/dL Albumin (3.5-5.0) g/dL Procalcitonin 3.25 H (0.02-0.09) ng/mL Stool Occult Blood Positive H (Negative) 03/02/21 03/03/21 03/03/21 Range/Units 18:49 02:33 02:33 WBC 13.6 H (3.8-10.6) k/uL Plt Count 104 L D (150-450) k/uL Neutrophils # 12.4 H (1.3-7.7) k/uL Lymphocytes # 0.9 L (1.0-4.8) k/uL APTT (22.0-30.0) sec ABG O2 Saturation (94-97) % Chloride 109 H (98-107) mmol/L Carbon Dioxide 18 L 20 L (22-30) mmol/L BUN 60 H 64 H (7-17) mg/dL Creatinine 4.74 H 4.98 H (0.52-1.04) mg/dL Glucose 202 H 189 H (74-99) mg/dL Plasma Lactic Acid Duran (0.7-2.0) mmol/L Calcium 7.0 L 6.9 L (8.4-10.2) mg/dL Phosphorus (2.5-4.5) mg/dL AST 7201 H (14-36) U/L ALT 5173 H (4-34) U/L Total Protein 5.0 L (6.3-8.2) g/dL Albumin 2.7 L (3.5-5.0) g/dL Procalcitonin (0.02-0.09) ng/mL Stool Occult Blood (Negative) 03/03/21 03/03/21 03/03/21 Range/Units 02:33 05:25 09:15 WBC (3.8-10.6) k/uL Plt Count (150-450) k/uL Neutrophils # (1.3-7.7) k/uL Lymphocytes # (1.0-4.8) k/uL APTT (22.0-30.0) sec ABG O2 Saturation 98.0 H (94-97) % Chloride (98-107) mmol/L Carbon Dioxide (22-30) mmol/L BUN (7-17) mg/dL Creatinine (0.52-1.04) mg/dL Glucose (74-99) mg/dL Plasma Lactic Acid Duran 2.4 H* (0.7-2.0) mmol/L Calcium (8.4-10.2) mg/dL Phosphorus 5.0 H (2.5-4.5) mg/dL AST (14-36) U/L ALT (4-34) U/L Total Protein (6.3-8.2) g/dL Albumin (3.5-5.0) g/dL Procalcitonin (0.02-0.09) ng/mL Stool Occult Blood (Negative) Microbiology - Last 24 Hours (Table) 03/01/21 12:20 Blood Culture - Preliminary Blood No Growth after 24 hours 03/01/21 12:10 Blood Culture - Preliminary Blood No Growth after 24 hours 03/01/21 16:58 Gram Stain - Preliminary Sputum Sputum Culture - Preliminary Assessment and Plan Assessment: Acute hypoxemic respiratory failure, of unclear etiology, requiring intubation and mechanical ventilation on 03/01/2021. Possibilities include non-ST elevation myocardial infarction (NSTEMI), acute pulmonary edema, and possible aspiration pneumonia. Acute kidney injury secondary to acute tubular necrosis. Anion gap metabolic acidosis. Shock liver secondary to sepsis and respiratory failure. History of atrial fibrillation. History of chronic bronchial asthma. History of deafness. History of hypothyroidism. History of gastroesophageal reflux disease. Plan: Plan dated 03/02/2021. The patient was started on a sodium bicarbonate drip. That was for the metabolic acidosis. The patient remains on heparin via weightbase protocol, propofol at 30 mcg/kg/m, saline at 20 mL an hour, and norepinephrine at 67 mcg/m. Dopamine has been turned off. The patient will get a random cortisol level and a pro-calcitonin level. The patient will be started on vasopressin at 0.03 units per minute. Azithromycin was discontinued. Ativan is discontinued. Patient is given one dose of hydrocortisone 100 mg IV push. The patient is maintained on Zosyn. Additional recommendations and suggestions are forthcoming and the patient will be placed on albuterol sulfate and ipratropium bromide updraft treatments, every 4 hours. Prognosis is very guarded. We will continue to follow the patient and make recommendations where appropriate. Plan dated 03/03/2021. Currently, the patient's blood pressure is much more stable. Yesterday she was on high doses of norepinephrine, and vasopressin needed to be added. A central line was placed. In addition, a right radial art line was placed. Currently, she is off both the vasopressin and the norepinephrine. Is placed on dopamine for bradycardia. She is currently on Zosyn for possible aspiration pneumonia. The patient is also being nourished at goal with vital high protein at 29 mL an hour. She's on a bicarbonate drip. Blood gases are reasonable. We will continue to follow make recommendations medications are reviewed. Everything seems appropriate at this time. The patient may end up requiring hemodialysis. Time with Patient: Greater than 30
[2021-03-03 12:01] LABS: Glucose,Whole Blood 169 mg/dL (75-99)
[2021-03-03] MEDS: INSULIN ASPART (NovoLOG) 100 UNIT/ML VIAL SQ SCH ×2 (12:21→17:17)
[2021-03-03 14:02] VITALS: BP 124/64
--- NOTE | 2021-03-03 15:13 | CT ---
EXAMINATION TYPE: CT brain wo con DATE OF EXAM: 03/03/2021 COMPARISON: 03/01/2021 HISTORY: ams CT DLP: 1173.4 mGycm Automated exposure control for dose reduction was used. There is extensive high attenuation in the posterior fossa in the subarachnoid space consistent with large acute subarachnoid hemorrhage. There is masslike enlargement of the brainstem in the posterior fossa. This extends superiorly into the cerebral peduncles and right side of the thalamus. There is e ffacement of the third ventricle. There is enlargement of the lateral ventricles. There is effacement of the sulci in both cerebral hemispheres. The calvarium is intact. IMPRESSION: Compared to the recent exam 2 days ago there is development of massive swelling of the brainstem exte nding into the thalamus. Brainstem and thalamic mass measures 5 cm in diameter approximately. There i s massive acute subarachnoid hemorrhage in the posterior fossa and consistent with acute hemorrhagic infarct. There is obstructive hydrocephalus. This exam was discussed with patient's nurse on the floor at 3:15 PM.
[2021-03-03 16:09] VITALS: TEMP 97.6
[2021-03-03] MEDS: DOPamine DRIP 800 MG in DEXTROSE/WATER 1 250ML.BAG IV SCH (16:38)
[2021-03-03 17:10] LABS: Calcium 6.8 mg/dL (8.4-10.2); Potassium 3.4 mmol/L (3.5-5.1)
[2021-03-03] MEDS: NOREPINEPHRINE 8 MG in SODIUM CHLORIDE 0.9% 250 ML IV SCH (17:57)
[2021-03-03] MEDS ORDERED: MORPHINE SULFATE 4 MG/ML SYRINGE IV PRN (19:02)
[2021-03-03] MEDS ORDERED: ONDANSETRON 4 MG/2 ML VIAL IVP PRN (19:02)
[2021-03-03] MEDS ORDERED: LORazepam 2 MG/ML INJ IV PRN (19:02)
[2021-03-03] MEDS ORDERED: SODIUM CHLORIDE 0.9% 1,000 ML IV SCH (19:15)
[2021-03-03 19:18] VITALS: PULSE 69
[2021-03-03] MEDS ORDERED: SCOPOLAMINE 1.5MG/72HR PATCH TRANSDERM SCH (20:00)
--- NOTE | 2021-03-06 11:44 | P.DS ---
Providers Date of admission: 03/01/21 14:20 Expected date of discharge: 03/03/21 Attending physician: Solomon Ruiz Consults: 03/01/21 14:20 Consult Physician Stat Consulting Provider: Donald Vanessa Consult Reason/Comments: critical care Do you want consulting provider notified?: Already Contacted Consult Physician Urgent Consulting Provider: Pee Martínez Consult Reason/Comments: cardiac care Do you want consulting provider notified?: Already Contacted 03/01/21 16:10 Consult Physician Stat Consulting Provider: Kenrick Burns Consult Reason/Comments: GUZMAN Do you want consulting provider notified?: Yes Primary care physician: Olegario Lemon [facility] Course: Discharge diagnosis Respiratory failure myocardial infarction aspiration pneumonia, subarachnoid hemorrhage 1. Acute shock, initial cause not entirely clear, could be related to aspiration pneumonia 2. Acute kidney injury, related to hypotension 3. Acute metabolic acidosis 4. Bilateral lungs opacities likely related to aspiration pneumonia 5. Paroxysmal atrial fibrillation 6. elevated troponin levels 7. Underlying history of hypertention 8. Underlying history of hypothyroidism 9. Underlying history of gout 10. Underlying history of diverticulosis 11. Underlying history of asthma 12. Elevated liver enzymes likely related to shock liver Hospital course Rachel Chau, is an 86 year old female who presented to [facility] emergency room due to poor responsiveness. Patient was found at home by her daughter and responsive, apparently she also had vomited and may have aspirated, she was brought into emergency room and was found to be hypotensive and an responsive, she was intubated started on mechanical ventilation and was started on IV antibiotics and admitted to intensive care unit. Patient had a thumb surgery on the day prior to admission. Laboratory data reveals a white blood count of 26.9 hemoglobin 13.2 platelet count 271 INR 1.7 lactic acid 2.5 BUN 43 creatinine 2.9 to troponin level I.13 TSH 0.414 Testing in the emergency room revealed chest x-ray done in the emergency room revealed diffuse increased lung markings bilaterally, EKG done in the emergency room revealed junctional rhythm, repeat EKG revealed normal sinus rhythm with nonspecific ST abnormality, computed tomography scan of the brain revealed age- related atrophy no evidence of intracranial bleeding, computed tomography scan of the cervical spine did not reveal any evidence of acute fracture. On 03/03/2021 patient remains in the intensive care unit mechanically ventilated and on sedation. Per nursing staff patient has shown some improvement with decreasing amounts of vasopressors. Per nursing staff awaiting family arrival before sedation holiday today. Patient remains on dopamine, sodium bicarb and Levophed drips. FiO2 of 40%. Patient remains on IV Zosyn. Critical care, nephrology and cardiology services are following. Repeat labs ordered for a.m. Per nursing notes sedation holiday was performed and patient unresponsive head CT was performed showing massive acute subarachnoid hemorrhage. According to nu rsing notes family was made aware and comfort care measures were initiated. Patient on 03/03/2021 at 2004 Plan - Discharge Summary Discharge Rx Participant: Yes New Discharge Prescriptions: No Action Triamterene-Hctz 37.5-25Mg [Dyazide 37.5-25 Capsule] 1 cap PO DAILY Omeprazole [PriLOSEC] 20 mg PO BID Sotalol [Betapace] 80 mg PO BID Montelukast [Singulair] 10 mg PO HS Levothyroxine Sodium [Synthroid] 125 mcg PO DAILY Budesonide/Formoterol Fumarate [Symbicort 160-4.5 Mcg Inhaler] 2 puff INHALATION RT-BID Albuterol Sulfate [Proair Hfa] 1 - 2 puff INHALATION RT-Q6H PRN PRN Reason: Shortness Of Breath Potassium Chloride [Klor-Con 10] 10 meq PO DAILY Warfarin Sodium [Coumadin] 4 mg PO DIRECTED Warfarin Sodium [Coumadin] 2 mg PO DIRECTED Celecoxib [CeleBREX] 200 mg PO DAILY Brimonidine Tartrate [Alphagan P 0.2% Ophth Soln] 1 drops RIGHT EYE BID HYDROcodone/APAP 7.5-325MG [Madison 7.5-325] 1 tab PO Q6H PRN PRN Reason: Pain Gabapentin [Neurontin] 300 mg PO DAILY ondansetron HCL [Zofran] 8 mg PO Q8HR PRN PRN Reason: Nausea Triamcinolone 0.1% Cream [Kenalog 0.1% Cream] 1 applicatio TOPICAL BID Latanoprost/Pf [Latanoprost 0.005% Eye Drop] 1 drop RIGHT EYE HS Discharge Medication List Albuterol Sulfate [Proair Hfa] 1 - 2 puff INHALATION RT-Q6H PRN 06/13/16 [History] Budesonide/Formoterol Fumarate [Symbicort 160-4.5 Mcg Inhaler] 2 puff INHALATION RT-BID 06/13/16 [History] Levothyroxine Sodium [Synthroid] 125 mcg PO DAILY 06/13/16 [History] Montelukast [Singulair] 10 mg PO HS 06/13/16 [History] Omeprazole [PriLOSEC] 20 mg PO BID 06/13/16 [History] Potassium Chloride [Klor-Con 10] 10 meq PO DAILY 06/13/16 [History] Sotalol [Betapace] 80 mg PO BID 06/13/16 [History] Triamterene-Hctz 37.5-25Mg [Dyazide 37.5-25 Capsule] 1 cap PO DAILY 06/13/16 [History] Warfarin Sodium [Coumadin] 2 mg PO DIRECTED 10/02/18 [History] Warfarin Sodium [Coumadin] 4 mg PO DIRECTED 10/02/18 [History] Brimonidine Tartrate [Alphagan P 0.2% Ophth Soln] 1 drops RIGHT EYE BID 03/01/21 [History] Celecoxib [CeleBREX] 200 mg PO DAILY 03/01/21 [History] Gabapentin [Neurontin] 300 mg PO DAILY 03/01/21 [History] HYDROcodone/APAP 7.5-325MG [Madison 7.5-325] 1 tab PO Q6H PRN 03/01/21 [History] Latanoprost/Pf [Latanoprost 0.005% Eye Drop] 1 drop RIGHT EYE HS 03/01/21 [History] Triamcinolone 0.1% Cream [Kenalog 0.1% Cream] 1 applicatio TOPICAL BID 03/01/21 [History] ondansetron HCL [Zofran] 8 mg PO Q8HR PRN 03/01/21 [History] Follow up Appointment(s)/Referral(s): Olegario Lemon MD [Primary Care Provider] - 1-2 days Discharge Disposition: - Preliminary Cause of Preliminary Cause of : Respiratory failure myocardial infarction subarachnoid hemorrhage
== END 2021-03-03 22:47 | disposition expired | DRG 871 ==
LOC: EC 11:25 → 2SICU 14:20
PROVIDERS: ADMIT Internal Medicine; ATTEND Internal Medicine
PROC: 02HV33Z Insertion of Infusion Device into Superior Vena Cava, Percutaneous Approach (ICD-10-PCS; 2021-03-01)
PROC: B5181ZA Fluoroscopy of Superior Vena Cava using Low Osmolar Contrast, Guidance (ICD-10-PCS; 2021-03-01)
PROC: B548ZZA Ultrasonography of Superior Vena Cava, Guidance (ICD-10-PCS; 2021-03-01)
PROC: 0BH17EZ Insertion of Endotracheal Airway into Trachea, Via Natural or Artificial Opening (ICD-10-PCS; principal; 2021-03-02)
PROC: 5A1935Z Respiratory Ventilation, Less than 24 Consecutive Hours (ICD-10-PCS; principal; 2021-03-02)
PROC: 4A133B1 Monitoring of Arterial Pressure, Peripheral, Percutaneous Approach (ICD-10-PCS; 2021-03-02)
PROC: 4A133J1 Monitoring of Arterial Pulse, Peripheral, Percutaneous Approach (ICD-10-PCS; 2021-03-02)
DX: A41.9 Sepsis, unspecified organism (principal); I21.A1 Myocardial infarction type 2; J69.0 Pneumonitis due to inhalation of food and vomit; R65.21 Severe sepsis with septic shock; K72.00 Acute and subacute hepatic failure without coma; J96.01 Acute respiratory failure with hypoxia; N17.0 Acute kidney failure with tubular necrosis; I60.9 Nontraumatic subarachnoid hemorrhage, unspecified; E87.2 Acidosis; Z66 Do not resuscitate; I50.9 Heart failure, unspecified; K57.90 Diverticulosis of intestine, part unspecified, without perforation or abscess without bleeding; J45.909 Unspecified asthma, uncomplicated; Z51.5 Encounter for palliative care; I48.0 Paroxysmal atrial fibrillation; Z20.822 Contact with and (suspected) exposure to COVID-19; I11.0 Hypertensive heart disease with heart failure; E03.9 Hypothyroidism, unspecified; E87.5 Hyperkalemia; H91.90 Unspecified hearing loss, unspecified ear; M10.9 Gout, unspecified; R00.1 Bradycardia, unspecified; K21.9 Gastro-esophageal reflux disease without esophagitis; Z79.01 Long term (current) use of anticoagulants; Z79.1 Long term (current) use of non-steroidal anti-inflammatories (NSAID); Z79.51 Long term (current) use of inhaled steroids; Z79.890 Hormone replacement therapy; Z79.899 Other long term (current) drug therapy; Z96.653 Presence of artificial knee joint, bilateral; Z96.669 Presence of unspecified artificial ankle joint; Z91.030 Bee allergy status
CPT/HCPCS: 36415; 36600; 70450; 71045; 72125; 76770; 80048; 80053; 80306; 81001; 82272; 82533; 82805; 83605; 83880; 84100; 84145; 84439; 84443; 84450; 84460; 84484; 85025; 85610; 85730; 87040; 87070; 87077; 87186; 87205; 87324; 87635; 93005; 93306; 94002; 94003; 94640